=== PATIENT | male | born 1955 | race Caucasian/White ===

== ENCOUNTER 2017-01-15 17:44 | Inpatient (IN) | payer MEDICARE, OTHER ==
[~2017-01-15] VITALS: Ht 182.9 cm; Wt 123.2 kg
[~2017-01-15 17:44] MED LIST: AUGMENTIN 875-1 EACH PO; BACTRIM DS TAB1 EACH PO; BD ULTRA-FINE1 EAC1 MISC; BLOOD GLUCOSE1 EAC1 MISC; BLOOD GLUCOSE1 EAC8 MISC; CIPROFLOXACIN500 MG PO; HYDROCHLOROTHIA25 MG PO; IBUPROFEN200 MG PO; IMODIUM A-D2 M2 PO; INSULIN SYRING1 EA10 MISC; KEFLEX500 MG PO; LANTUS100 UNITS/ SUB-Q; LISINOPRIL20 MG PO; LISINOPRIL40 MG PO; METFORMIN HCL1000 MG PO; MOTRIN IB200 MG PO; NICORETTE2 MG MM; NOVOLOG100 UNIT/1 SUB-Q; NOVOLOG100 UNITS/ IV; NOVOLOG100 UNITS/ SUB-Q; PERCOCET 10-321 EACH PO; PERCOCET 5-3251 EACH PO; SURESTEP PRO1 EA VI; TERBINAFINE15 GM TOP; TYLENOL325 MG PO
[2017-01-15] MEDS ORDERED: NOVOLOG100 UNIT/2 SUB-Q (18:07)
[2017-01-15] MEDS ORDERED: LANTUS100 UNITS/ SUB-Q (18:08)
--- NOTE | 2017-01-15 21:30 | NUR ---
PT ADMITTED TO ICU ROOM 127 FOR SEPSIS FROM LEFT FOOT WOUND. PT AWAKE AND ALERT BUT SLEEPY, TRANSFERRED OVER TO BED FROM STRETCHER BY SLIDING WITH 3PERSON ASSIST. PT DENIES PAIN AT THIS TIME "THEY JUST GAVE ME SOMETHING". ASSESSMENT DONE, ALERT AND ORIENTED, PICTURES TAKEN OF LEFT FOOT WOUND, REDNESS EXTENDING UP THIGH WELL SOME REDNESS ON ABDOMEN. IVF STARTED, VANCOMYCIN STARTED. PT A BIT GRUMPY AND NOT WANTING TO ANSWER QUESTIONS, JUST LIES WITH FACE COVERED WITH BLANKET. DENIES NEEDS AT THIS TIME, WILL CALL WITH FURTHER NEEDS.
--- NOTE | 2017-01-15 23:00 | NUR ---
PT CALLS TO REQUEST BLANKET HE IS HAVING CHILLS, ALSO CONTINUES TO C/O HEARTBURN. 500MG PO TYLENOL GIVEN, MAALOX GIVEN ALSO.
--- NOTE | 2017-01-16 01:00 | NUR ---
ORAL TEMP 102.3, PT REPORTS RELIEF FROM HEARTBURN AFTER MAALOX GIVEN. DR CHILDERS CALLED AND INFORMED OF FEVER. ORDER GIVEN FOR EXTRA DOSE OF TYLENOL AT THIS TIME WELL A SET OF BLOOD CULTURES. PT INFORMED, AGREES, WAITING FOR LAB.
--- NOTE | 2017-01-16 01:34 | NUR ---
LAB IN TO DRAW
--- NOTE | 2017-01-16 04:42 | NUR ---
PT NAUSEATED/GROANING. DR CHILDERS CALLED, 4MG IV ZOFRAN GIVEN.
--- NOTE | 2017-01-16 05:37 | NUR ---
CALLED DR CHILDERS TO UPDATE REGARDING NAUSEA, FEVER AND LOW URINE OUTPUT. ORDER GIVEN FOR NAUSEA MED AND 1L LR BOLUS.
--- NOTE | 2017-01-16 08:00 | NUR ---
WOKE PATIENT FOR ASSESSMENT. IS DROWSY. STATES HE FEELES ALITTLE BETTER. LESS PAINFUL. REPOSITIONED. LEFT LEG REMAINS WARM AND PINK. PINK AREA ON LEFT LEG HAS STAYED WITHIN ORIGINAL MAKED AREA. OPEN SORE ON LEFT FOOT IS BLACK AROUND EDGE, SMALL AMOUNT OF DRAINAGE NOTED ON PILLOW CASE. OSTOMY IS INTACT. OSTOMY BAG WELL OSTOMY CLEANED. LARGE AMOUNT OF STOOL NOTED. PATIENT C/O SLIGHT NAUSEA, IA REQUESTING JELLO. IS TAKING WATER WITHOUT PROBLEMS. IS UNDERSTANDING REGARDING PLAN OF CARE FOR DAY.
--- NOTE | 2017-01-16 08:30 | NUR ---
DR. CHILDERS HERE TO SEE PATIENT, ORDERS RECIEVED. PATIENT IS DROWSY. IS TAKING BITES OF JELLO.
--- NOTE | 2017-01-16 10:00 | NUR ---
RESTFUL. URINE SENT TO LAB PER ORDERS. GOOD U/O, IVF AT 200 ML/HR, VANCO 270 ML/HR, CEFEPIME AT 27 ML/HR.
--- NOTE | 2017-01-16 12:00 | NUR ---
ASSESSMENT UNCHANGED. VERY TIRED.
--- NOTE | 2017-01-16 14:15 | NUR ---
MALOX 30 ML GIVEN FOR HEART BURN.
--- NOTE | 2017-01-16 15:00 | NUR ---
SPONGE BATH GIVEN. MOVES WELL IN BED. IS COOPERTIVE.
--- NOTE | 2017-01-16 15:44 | NUR ---
DR. AHUMADA HERE TO ASSESS WOUND ON LEFT FOOT. WOUND CLEANSED WITH SOAP/WATER, THEN XEROFORM APPLIED FOLLOWED BY KERLEX WRAP.
--- NOTE | 2017-01-16 16:38 | NUR ---
C/O CHILLING. TEMP-98.4. WILL CONTINUE TO MONITOR.
--- NOTE | 2017-01-16 17:29 | NUR ---
REFUSING DINNER. STATES HE IS FEEING WORSE.
--- NOTE | 2017-01-17 02:32 | NUR ---
PT C/O OF HEARTBURN X3 DAYS. ADMINISTERED ZOFRAN AND MAALOX. PT TEMP 99.6 ADMINISTERED 500MG TYLENOL PO. NO OTHER NEEDS.
--- NOTE | 2017-01-17 05:17 | NUR ---
ASSISTED TO REPOSITION. REQUESTING SOMETHING TO EAT THAT IS EASY ON THE STOMACH. GIVEN PUDDING.
--- NOTE | 2017-01-17 08:30 | NUR ---
ASSESSMENT DONE. LEFT LEG IS MORE SWOLLEN THAN YESTERDAY. REMAINS WARM AND PINK. OSTOMY BAG INTACT. WILL CHANGE THIS LATER THIS MORNING. TAKING OATMEAL AND YOGART.
--- NOTE | 2017-01-17 09:00 | NUR ---
DR. CHILDERS HERE TO SEE PATIENT, TRANSFER ORDERS RECIEVED. MONITOR DC'D.
--- NOTE | 2017-01-17 09:30 | NUR ---
OSTOMY BAG CHANGED BY Naldo CARLOS RN. PATIENT TOLERATED WELL. IS SOMEWHAT RESTLESS.
--- NOTE | 2017-01-17 09:45 | NUR ---
AM CARES GIVEN. TOLERATED WELL. C/O GENERALIZED PAIN, HEARTBURN. STATES FEELS WORSE. WISHES TO REMAIN IN BED. WILL TRANSFER TO CHAIR WHEN PHYS THERAPY HERE TO WORK WIHT PATIENT.
--- NOTE | 2017-01-17 10:00 | NUR ---
REGLAN 10 MG IV GIVEN FOR HEARTBURN AND SLIGHT NAUSEA.
--- NOTE | 2017-01-17 13:19 | NUR ---
UP TO CHAIR VIA OVERHEAD LIFT. PHYS THERAPY HERE TO WORK WITH PATIENT. C/O NAUSEA, ZOFRAN 4 MG IV REQUESTED AND GIVEN.
--- NOTE | 2017-01-17 13:50 | NUR ---
BACK TO BED VIA OVERHEAD LIFT.
--- NOTE | 2017-01-17 14:05 | NUR ---
REPORT TO MEDICAL FLOOR.
--- NOTE | 2017-01-17 14:20 | NUR ---
TO MEDICAL FLOOR VIA BED.
--- NOTE | 2017-01-17 14:27 | NUR ---
PT RECEIVED FROM CCU. PT COMPLAINT OF GENERALIZED PAIN, DENIES NEED FOR PAIN MEDICATION. PT LUNG SOUNDS CLEAR. WILLIS CTAH IN PLACE. LLE REDDENED, WARM TO THE TOUCH. FAMILY AT BEDSIDE.
--- NOTE | 2017-01-17 17:20 | NUR ---
PT REQUESTING PAIN MEDICATION, GIVEN 500 MG TYLENOL. DINNER AT BEDSIDE, BLOOD GLUCOSE 99, SS INSULIN HELD. PT DENIES OTHER NEEDS AT THIS TIME.
--- NOTE | 2017-01-17 17:52 | NUR ---
PT TRANSFERED FROM CCU. PARAPLGEIC. DIABETIC FOOT ULCER TO LEFT FOOT. RECEIVING VANCO, CEFEPIME, FLAGYL, TROUGH 24.7. PT ON ROOM AIR, LUNG SOUNDS CLEAR. ADA DIET, SS INSULIN AND LEVEMIR, HELD AT DINNER. PT WITH CHRONIC WILLIS IN PLACE. COLOSTOMY, FORMED STOOL. PAIN CONTROLLED WITH TYLENOL.
--- NOTE | 2017-01-17 19:00 | NUR ---
BEDSIDE REPORT RECEIVED FROM OFFGOING NURSE. PT LYING IN BED. DENIES NEEDS AT THIS TIME. CALL LIGHT WITHIN REACH.
--- NOTE | 2017-01-17 20:45 | NUR ---
PT ASSESSMENT COMPLETED. PT DENIES PAIN OR NAUSEA. SMALL 1CM X 1CM SCAB NOTED TO ABDOMEN NEAR OSTOMY APPLIANCE. OSTOMY DRAINING APPROPRIATELY. RLE REDDENED, WITHIN OUTLINE. DRESSING TO R FOOT D/I WITH MODERATE AMOUNT OF SHADOWING PRESENT. WILLIS CATH DRAINING YELLOW URINE WITH SEDIMENT PRESENT. IV SITES FLUSHED, ABX STARTED. PT DENIES NEEDS AT THIS TIME. CALL LIGHT WITHIN REACH.
--- NOTE | 2017-01-17 22:46 | NUR ---
PT RESTING IN BED, RESPIRATIONS EVEN AND UNLABORED. PT HAS BLANKETS PULLED UP OVER HIS HEAD. CALL LIGHT WITHIN REACH.
--- NOTE | 2017-01-18 00:50 | NUR ---
PT LYING IN BED AWAKE. STATES THAT IV PUMP BEEPING WOKE HIM. DENIES NEEDS AT THIS TIME. CALL LIGHT WITHIN REACH.
--- NOTE | 2017-01-18 02:39 | NUR ---
PT CALLS, ASKS FOR LEGS TO BE RE-ADJUSTED. PILLOW PLACED BETWEEN BEDRAIL AND PT'S LEG. PT ASSESSMENT COMPLETE. UNCHANGED FROM PREVIOUS ASSESSMENT. PT DENIES PAIN OR NAUSEA. REDDNESS TO LLE WITHIN OUTLINE. DRESSING TO LLE D/I. PT DENIES OTHER NEEDS. CALL LIGHT WITHIN REACH.
--- NOTE | 2017-01-18 04:33 | NUR ---
PT RESTING WELL THIS SHIFT. NO C/O PAIN. REDNESS TO LLE OUTLINED. DRESSING TO LLE D/I WITH SEROSANGUINEOUS SHADOWING. ACCUCHECKS, SSI, LEVEMIR. CHRONIC WILLIS AND OSTOMY. IV X 2. KIESHA TRANSFER, PARAPLEGIC PT.
--- NOTE | 2017-01-18 05:59 | NUR ---
pt sitting up in bed watching a movie on his phone. pt denies pain or nausea. requests coffee and sandwhich box. denies other needs. call light within reach.
--- NOTE | 2017-01-18 08:03 | NUR ---
PT ALERT AND ORINETED NO DISTRESS NOTED AT THIS TIME. PT WATCHING TV, JUST FINISHED BREAKFAST.
[2017-01-18] MEDS ORDERED: LISINOPRIL20 MG PO (10:44)
[2017-01-18] MEDS ORDERED: ONDANSETRON HCL4 MG PO (10:46)
--- NOTE | 2017-01-18 11:05 | NUR ---
WARREN MOROCHO RN IS IN ROOM WITH PT AT THIS TIME FOR PICC LINE PLACEMENT CONSULT
--- NOTE | 2017-01-18 12:09 | NUR ---
PICC INSERTION NOTE, I WAS ASKED BY DR CHILDERS TO EVALUATE HERMINIO FOR POSSIBLE PICC INSERTION. AFTER REVIEWING THE CHART AND INTERVIEWING THE PT, NO ABSOLUTE CONTRAINDICATIONS WERE FOUND. RISKS AND COMPLICATIONS OF PICC LINES WERE DISCUSSED WITH THE PT AND INFORMED CONSENT WAS SIGNED PRIOR TO THE START OF THE PROCEDURE. JANE HAS HAD A PICC LINE BEFORE AND TOLERATED IT WELL. THE RIGHT ARM IS INFUSING WITH HIS ONLY REMAINING IV SITE SO THE LEFT ARM WAS EVAULATED FIRST AND HE HAS A LARGE BASILIC VEIN MEASURING MORE THAN 8FR PER SITE [facility]. THIS VEIN WAS ACCESSED ON THE FIRST ATTEMPT AND THERE WERE NO ISSUES ADVANCING THE GUIDE WIRE, DILATOR, OR PICC. A SINGLE CXR WAS TAKEN WHICH DR VINCENT CAMPBELL MD REVIEWED AND LET US KNOW IT WAS IN A GOOD POSITION. EDUCATION WAS GIVEN AND INFORMATION LEFT WITH THE PATIENT REGARDING THE CARE OF PICC LINES. HE UNDERSTANDS THAT HE SHOULD SEEK MEDICAL ATTENTION FOR ANY CONCERNS REGARDING HIS PICC.
--- NOTE | 2017-01-18 14:45 | NUR ---
PT REPORTS BACK PAIN, TYLENOL ADMINSTERED AT THIS TIME
--- NOTE | 2017-01-18 15:51 | NUR ---
Draw for vancomycin trough level 01/19/17 at 0830. Pharmacy will assess results and make adjustments, if indicated
--- NOTE | 2017-01-18 17:06 | NUR ---
PT HAS CHRONIC WILLIS GOOD URINE OUTPUT, COLOSTOMY PRODUCING GOOD OUTPUT APPLIANCE INTACT. PICC LINE PLACED TODAY FOR ABX THERAPY. DRESSING TO LEFT FOOT INTAKE SMALL AMOUNT OF DRAINAGE NOTEABLE. PT PARALIZED AT BASELINE KIESHA LIFT. UP TO RECLINER THIS AFTERNOON. ASSIST TO RE-POSITION FREQUENTLY. HE HAS REPORTED MODERATE BACK PAIN, TYLENOL EFFECTIVE.
--- NOTE | 2017-01-18 19:05 | NUR ---
BEDSIDE REPORT RECEIVED FROM OFFGOING RN. PT SITTING UP IN CHAIR, WOULD LIKE TO MOVE BACK TO BED. PT HOYERED BACK TO BED, LLE ELEVATED IN KIESHA SLING WITH 2 PILLOWS BETWEEN PTS LEG AND SLING. PT TOLERATED WELL. DENIES OTHER NEEDS AT THIS TIME. CALL LIGHT WITHIN REACH.
--- NOTE | 2017-01-18 20:20 | NUR ---
PT ASSESSMENT COMPLETED. PT RESTING IN BED WITH EYES CLOSED. APPEARS TO BE SLEEPING. PT WAKES EASILY. DENIES PAIN OR NAUSEA. WILLIS CATH AND OSTOMY DRAINING APPROPRIATELY. REDNESS AND WARMTH CONTINUE TO LLE; REDNESS WITHIN OUTLINED MARKING. LLE DRESSING D/I WITH DRY SEROSANGUINEOUS DRAINAGE PRESENT. EDEMA TO BILATERAL LOWER LEGS. PT DENIES NEEDS AT THIS TIME. CALL LIGHT WITHIN REACH.
--- NOTE | 2017-01-19 00:09 | NUR ---
PT RESTING IN BED WITH BLANKETS PULLED UP OVER HIS HEAD. RESPIRATIONS EVEN AND UNLABORED. PT APPEARS TO BE SLEEPING. CALL LIGHT WITHIN REACH.
--- NOTE | 2017-01-19 01:58 | NUR ---
PT RESTING IN BED AWAKE. ASSISTED PT TO REPOSITION TO R SIDE. PILLOW PLACED BETWEEN PT'S LEGS. PT ASSESSMENT COMPLETED. UNCHANGED FROM PREVIOUS ASSESSMENT. DRESSING TO LLE D/I. REDNESS WITHIN PREVIOUSLY OUTLINED AREA. OSTOMY AND WILLIS CATH DRAINING APPROPRIATELY. PT DENIES FURTHER NEEDS. CALL LIGHT WITHIN REACH.
--- NOTE | 2017-01-19 05:17 | NUR ---
PT SITTING UP IN BED WATCHING TV ON HIS PHONE. STATES THAT HE IS FEELING MUCH BETTER TODAY, STATES THAT HE WISHES THE HOSPITAL OFFERED A STEAK BREAKFAST. PT PROVIDED WITH COFFEE, DENIES OTHER NEEDS. CALL LIGHT WITHIN REACH.
--- NOTE | 2017-01-19 05:18 | NUR ---
PT SLEPT MOST OF SHIFT. BACK PAIN CONTROLLED WITH REPOSITIONING. REDNESS TO L LEG OUTLINED. DRESSING TO L FOOT D/I WITH SEROSANGUINEOUS SHADOWING. DR. AHUMADA DUE TO CHANGE DRESSING TODAY. CHRONIC WILLIS WITH QS UO. COLOSTOMY WITH GOOD OUTPUT. KIESHA TRANSFER. PICC LINE TO L ARM, LR @ TKO. IV TO CHEO WARREN.
--- NOTE | 2017-01-19 07:05 | NUR ---
BEDSIDE REPORT RECEIVED FROM TINO GEORGES. PATIENT AWAKE IN BED DENIES PAIN. WILLIS IN PLACE, PICC LINE WNL AND FLUID INFUSING TKO. OSTOMY BAG IN PLACE. LEFT LEG ELEVATED WITH DRESSING ON. NO REQUEST MADE AT THIS TIME.
--- NOTE | 2017-01-19 09:20 | NUR ---
PATIENT FOUND IN BED WATCHING TV. DENIES PAIN. SHIFT ASSESSMENT DONE. PICC LINE WNL FLUSHED WELL WITH GOOD BLOOD RETURN. OSTOMY IN PLACE, WILLIS IN PLACE AND DRAINING YELLOW URINE. REDNESS ON THE RIGHT LEG STILL HOT TO TOUCH AND WOUND IN THE RIGHT SIDE OF THE R. FOOT COVER WITH GAUZE. NO DRAINAGE NOTED. PATIENT IS PARAPLEGIC. DR CHILDERS WAS IN ROOM TO SEE AND EVALUATE PATIENT AND DISCUSS PLAN OF CARE. PATIENT WAS ASSISTED TO SHOWER CHAIR WITH KIESHA. PATIENT WAS SHOWERED AND ASSISTED BACK TO CHAIR VIA KIESHA LIFT WITH 2 PERSONS ASSIST. DRESSING ON THE RIGHT SIDE OF THE R FOOT WAS CHANGED. PATIENT RESTING IN THE CHAIR QUIETLY. NO APPARENT DISTRESS NOTED.
--- NOTE | 2017-01-19 10:25 | NUR ---
PT HAS SHOWERED AND IS NOW SITTING UP IN CHAIR, WORKING WITH OCCUPATIONAL THERAPY. PT ASKED FOR COFFEE
--- NOTE | 2017-01-19 12:15 | NUR ---
PATIENT SITTING UP TO IN BED. DENIES PAIN AT THIS TIME. CBG CHECKED AND INSULIN [place] ADMINISTERED. NO OTHER COMPLAINTS.
--- NOTE | 2017-01-19 14:19 | NUR ---
PT WAS LYING IN BED, AFTER VITALS PT TRANSFERED TO PERSONAL WHEELCHAIR VIA SLIDE BOARD. PT ASLO SELF BURPPED COLOSTOMY BAG. PT ASKED FOR MORE ICE WATER
--- NOTE | 2017-01-19 14:37 | NUR ---
PT SITTING IN BED, ALERT AND ORIENTED. HE MENTIONED THAT HE NEEDS TO FIND SOME PLACE TO LIVE. HIS DAUGHTER MOVED OUT AND [place] WOULD LIKE TO FIND A SMALL PLACE FLAT. SEEMS TO HAVE GOOD ATTITUDE, BELIEVES GOD HAS A PLAN FOR HIM. IS ON SS DISABILITY. REQUESTED PRAYER, WILL FOLLOW NEEDED
--- NOTE | 2017-01-19 15:30 | NUR ---
PATIENT IS IN PHYSICAL THERAPY ROOM WITH VALENTIN. TOLERATED WELL. NO COMPLAINTS AT THIS TIME.
--- NOTE | 2017-01-19 17:58 | NUR ---
PATIENT HAD DONE WELL THIS SHIFT. HAD PHYSICAL THERAPY TODAY AND TOLERATED WELL. NO COMPLAINT OF PAIN THIS SHIFT. WILLIS IN PLACE. COLOSTOMY IN PLACE AND FUNCTION WELL. DRESSING ON THE RIGHT FOOD WAS CHANGED TODAY. REDNESS AND SWELLING ON THE RIGHT LEG HAD DECREASED SOME. PICC LINE WNL, FLUSHED WELL WITH GOOD BLOOD RETURN.
--- NOTE | 2017-01-19 18:18 | NUR ---
ASSISTED PT TO BED VIA SLIDE BOARD. PT DID NOT NEED ANYTHING ELSE
--- NOTE | 2017-01-19 19:00 | NUR ---
BEDSIDE REPORT RECEIVED FROM OFFGOING RN. PT LYING IN BED WITH BLANKETS PULLED UP OVER FACE AND HEAD. APPEARS TO BE SLEEPING. CALL LIGHT WITHIN REACH.
--- NOTE | 2017-01-19 20:59 | NUR ---
PT RESTING IN BED WITH EYES CLOSED. WAKES EASILY. STATES THAT PAIN IS WELL CONTROLLED. PT ASSESSMENT COMPLETE. REDDENED AREA NOTED TO L AC WITH SMALL RAISED AREA WITH A PURULENT HEAD NOTED, BELOW PICC LINE DRESSING. AREA IS WARM TO THE TOUCH. LEFT LEG AND FOOT REMAINS RED AND HOT TO THE TOUCH, REDNESS WITHIN OUTLINE. GAUZE DRESSING TO LEFT FOOT C/D/I. PT DENIES NEEDS AT THIS TIME. CALL LIGHT WITHIN REACH.
--- NOTE | 2017-01-19 22:35 | NUR ---
PT RESTING IN BED WITH EYES CLOSED. APPEARS TO BE SLEEPING. RESPIRATIONS EVEN AND UNLABORED. NO S/SX OF DISTRESS. CALL LIGHT WITHIN REACH.
--- NOTE | 2017-01-19 23:15 | NUR ---
PT RESTING IN BED WITH EYES CLOSED. RESPIRATIONS ARE EVEN AND UNLABORED. PT APPEARS TO BE SLEEPING. CALL LIGHT WITHIN REACH.
--- NOTE | 2017-01-20 03:14 | NUR ---
PT ASSESSMENT COMPLETE. PT RESTING WITH EYES CLOSED. WAKES EASILY. DRESSING TO L FOOT REMAINS C/D/I. GAUZE AND COBAN TO LLE WHERE PT SCRAPED FOOT DURING P.T. REDNESS AND WARMTH TO LLE UNCHANGED. LUE REDNESS AND RAISED BUMP UNCHANGED FROM PREVIOUS ASSESSMENT. PT REPOSITIONED TO R SIDE. PILLOW PLACED BETWEEN PT'S LEGS. PT TOLERATED WELL. DENIES NEEDS AT THIS TIME. CALL LIGHT WITHIN REACH.
--- NOTE | 2017-01-20 05:10 | NUR ---
PT SLEPT MOST OF SHIFT, PAIN WELL CONTROLLED. DRESSING TO LEFT FOOT C/D/I. WARMTH AND REDNESS TO LLE, WITHIN OUTLINE. NEW REDNESS AND BUMP TO LAC BELOW PICC LINE DRESSING. CHRONIC WILLIS AND OSTOMY; BOTH DRAINING APPROPRIATELY. KIESHA TRANSFER. PICC LINE L ARM, HEP LOCKED.
--- NOTE | 2017-01-20 10:54 | NUR ---
PT UP IN CHAIR WITH LLE ELEVATED ON BED. DR. GARCIA WAS IN TO CHANGE WOUND DRESSING ON LLE. PT DENIES NEEDS AT THIS TIME. CALL ALONZO WITHIN REACH.
--- NOTE | 2017-01-20 11:04 | NUR ---
PATIENT AWAKE IN BED. CLEANED ROOM. EMPTYED GARBAGE. HOYERED HIM TO CHAIR. LINEN CHANGE. FRESH HOTCHOCOLATE. FRESH ICE WATER. ELAVATED HIS LEFT LEG. TOOK VITALS. EMPTYED HIS WILLIS. PATIENT STATED HE WAS DOING OK CALLN LIGHT IN REACH.
== END 2017-01-20 11:55 | disposition swing bed (61) | DRG 698 ==
LOC: ED 17:44 → CCU 21:10 → MS 01-17 14:20
PROVIDERS: ADMIT Internal Medicine
PROC: 02HV33Z Insertion of Infusion Device into Superior Vena Cava, Percutaneous Approach (ICD-10-PCS; principal; 2017-01-18 11:00)
DX: T83.511A Infection and inflammatory reaction due to indwelling urethral catheter, initial encounter (principal); A41.9 Sepsis, unspecified organism; R65.20 Severe sepsis without septic shock; L03.116 Cellulitis of left lower limb; G82.21 Paraplegia, complete; E87.1 Hypo-osmolality and hyponatremia; Y84.6 Urinary catheterization as the cause of abnormal reaction of the patient, or of later complication, without mention of misadventure at the time of the procedure; E11.628 Type 2 diabetes mellitus with other skin complications; E11.65 Type 2 diabetes mellitus with hyperglycemia; E11.621 Type 2 diabetes mellitus with foot ulcer; L97.529 Non-pressure chronic ulcer of other part of left foot with unspecified severity; I10 Essential (primary) hypertension; B95.62 Methicillin resistant Staphylococcus aureus infection as the cause of diseases classified elsewhere; N31.9 Neuromuscular dysfunction of bladder, unspecified; B96.20 Unspecified Escherichia coli [E. coli] as the cause of diseases classified elsewhere; E83.42 Hypomagnesemia; Z79.4 Long term (current) use of insulin
CPT/HCPCS: 36415; 36556; 71010; 80053; 80069; 80202; 81001; 82570; 83036; 83605; 83735; 83930; 83935; 84133; 84300; 84550; 85025; 87040; 87077; 87088; 87147; 87186; 94667; 94668; 97110; 97162; 97165; 97530; 97535; C1751; J0692; J0696; J1170; J1650; J2405; J2765; J3370; J3475; J7030; J7060; J7120

== ENCOUNTER 2017-01-20 11:55 | Inpatient (IN) | payer MEDICARE, OTHER ==
[~2017-01-20] VITALS: Ht 182.9 cm; Wt 123.0 kg
[~2017-01-20 11:55] MED LIST changes: +NOVOLOG100 UNIT/2 SUB-Q; +ONDANSETRON HCL4 MG PO
--- NOTE | 2017-01-20 13:56 | NUR ---
PT SHARED THAT HE IS NOW SWING BED STATUS. THIS SEEMS TO FIT HIM WELL. WILL CONTINUE TO FOLLOW. EXTENDED A BLESSING
--- NOTE | 2017-01-20 15:08 | NUR ---
PT SLEEPING ON R SIDE. INDEPENDENTLY REPOSITIONS. CALL ALONZO WITHIN REACH.
--- NOTE | 2017-01-20 18:29 | NUR ---
PT WAS IN CHAIR FOR MOST OF DAY. TOOK A NAP THIS AFTERNOON IN BED AND IS NOW COMFORTABLE IN WHEELCHAIR. DR. GARCIA WAS IN THIS MORNING AND CHANGED DRESSING ON LLE. NEW DRESSING CHANGE DIRECTIONS IN PROGRESS REPORT NOTED BY DR. GARCIA. PICC DRESSING WNL. WILLIS IN PLACE. COLOSTOMY IN PLACE.
--- NOTE | 2017-01-20 20:40 | NUR ---
PT LAYING IN BED, APPEARED TO BE SLEEPING WHEN ENTERING ROOM. PT WOKE TO VOICE EASILY. REPORTED HE WAS "FEELING TIRED." PT ALERT AND ORIENTED X4. DRESSING TO LEFT FOOT CLEAN DRY AND INTACT. PT DENIES PAIN. PICC DRAWS BLOOD AND FLUSHES WELL. PT HAS NO NEEDS AT THIS TIME. BROUGHT FRESH ICE WATER. CALL LIGHT IN REACH.
--- NOTE | 2017-01-21 05:17 | NUR ---
PT SLEPT ENTIRE SHIFT, UNEVENTFUL NIGHT. WILLIS PUTTING OUT LARGE AMOUNTS OF DILUTE URINE. COLOSTOMY IN PLACE. BS CHECKS AND SS INSULIN. DRESSING CHANGED YESTERDAY PER DR AHUMADA. PT USES CALL LIGHT APPROPRIATLY. ALERT AND ORIENTED X4.
--- NOTE | 2017-01-21 07:39 | NUR ---
BEDSIDE REPORT RECIEVED FROM JER. ASSUMING PATIENT CARE AT THIS TIME. PATIENT APPEARS TO BE SLEEPING AT THIS TIME. RR EVEN/UNLABORED.
--- NOTE | 2017-01-21 10:35 | NUR ---
PATIENT IN BED RESTING. DENIES PAIN. SHIFT ASSESSMENT DONE. WILLIS IN PLACE AND DRAINING WELL. WOUND ON LEFT FOOT COVER WITH GAUZE AND COBAN, WNL, NO DRAINAGE. EDEMA NOTED ON LOWER EXTREMITIES. SKIN ON THE L/E SCALY. PICC LINE WNL, WITH BLOOD RETURN. VANCO IS INFUSING AT THIS TIME. NO APPARENT DISTRESS NOTED.
--- NOTE | 2017-01-21 11:51 | NUR ---
PATIENT AWAKE IN BED. CLEANED ROOM. EMPTYED GARDAGE. FRESH ICE WATER. HOT CHOCOLATE. PATIENT TRYED TO GET IN HIS WHEEL CHAIR TO TAKE A SHOWER BUT WAS NOT COMFERTABLE SO HE I ASSISTED HIM TO GET BACK IN BED. PATIENT SAID HE WOULD TAKE A SHOWER AFTER HIS SON GOT HERE TO FIX HIS WHEEL CHAIR. TOOK VITALS. UPDATED [place]. PATIENT STATED HE DID NOT NEED ANYTHING ELSE AT THIS TIME. CALL LIGHT IN REACH.
--- NOTE | 2017-01-21 16:06 | NUR ---
PATIENT AWAKE IN BED. FRESH WATER. HOYERED TO THE SHOWER CHAIR AND HE TOOK A SHOWER WITH MY ASSISTENCE. PATIENT HAS CALL LIGHT IN REACH.
--- NOTE | 2017-01-21 16:17 | NUR ---
PATIENT UP TO WHEELCHAIR, DENIES PAIN. WILLIS IN PLACE, COLOSTOMY WNL. NO APPATENT DISTRESS.
--- NOTE | 2017-01-21 18:03 | NUR ---
PATIENT HAD DONE WELL TODAY. NO COMPLAINTS OF PAIN FOR THIS SHIFT. PICC LINE IN PLACE AND S/L. DRESSING ON THE LEFT LATERAL FOOT WNL. NEED TO BE CHANGED Q 3 DAYS. PATIENT HAD SHOWERED TODAY. COLOSTOMY WNL. WILLIS IN PLACE AND DRAINING WELL.
--- NOTE | 2017-01-21 19:15 | NUR ---
RECEIVED REPORT FROM DAY SHIFT RN. PATIENT IS RESTING IN BED WATCHING TV ON HIS PHONE. PATIENT DENIES ANY NEEDS AT THIS TIME. PATIENT DENIES ANY PAIN. CALL LIGHT IN REACH.
--- NOTE | 2017-01-21 21:24 | NUR ---
PATIENT ASSESMENT COMPLETED. PATIENT DENIES ANY PAIN AT THIS TIME. PATIENTS EVENING MEDICATIONS GIVEN AT THIS TIME. PATIENT HAS A LEFT PICC LINE THAT HAS GOOD BLOOD RETURN. PATIENTS IV ABX STARTED PER ORDER. PATIENT HAS WILLIS IN PLACE AND THIS IS CHRONIC. PATIENT ALSO HAS OSTOMY BAG. PATIENT GIVEN SUPPLIES PER HIS REQUEST TO CHANGE OSTOMY BAG. PATIENT DENIES ANY FURTHER NEEDS AT THIS TIME. CALL LIGHT IN REACH.
--- NOTE | 2017-01-21 23:10 | NUR ---
PATIENT IS RESTING IN BED WATCHING [employer] ON HIS TABLET. PATIENT DENIES ANY NEEDS AT THIS TIME. CALL LIGHT IN REACH.
--- NOTE | 2017-01-22 01:23 | NUR ---
PATIENTS IV ABX COMPLETED INFUSING. PATIENTS LEFT ARM PICC IS NOW HEP LOCKED. PATIENT DENIES ANY NEEDS AT THIS TIME. CALL LIGHT IN REACH.
--- NOTE | 2017-01-22 02:22 | NUR ---
PATIENT IS RSETING IN BED ON HIS RIGHT SIDE. PATIENTS BREATHING IS EVEN AND UNLABORED, RR 18. CALL LIGHT IN REACH.
--- NOTE | 2017-01-22 02:34 | NUR ---
PATIENT CONTINUES TO REST IN BED WITH EYES CLOSED, RR 16.
--- NOTE | 2017-01-22 05:04 | NUR ---
PATIENT RESTED WELL DURING THE LATER PART OF THE SHIFT. PATIENT IS ON AN ADA DIET W/1800 CALORIE LIMIT AND IS TOLERATING IT WELL WITH NO COMPLAINTS OF NAUSEA. PATIENT HAS A PICC IN HIS UPPER LEFT ARM THAT FLUSHES WELL, HAS GOOD BLOOD RETURN, AND IS HEPLOCKED WHEN NOT IN USE. PATIENT HAS A CHRONIC WILLIS, OUPUT IS QS. PATIENT ALSO HAS AN OSTOMY. PATIENT IS A SBA TRANSFER TO HIS WHEELCAHIR WITH A SLIDER BOARD. PATIENT TOLERATES TRANSFER WELL. PATIENTS DRESSING IS DRY AND INTACT WITH NO DRAINAGE NOTED. PATIENT IS AAOX3 AND USES CALL LIGHT APPROPRIATELY.
--- NOTE | 2017-01-22 06:37 | NUR ---
PATIENT CONTINUES TO REST IN BED. PATIENT DENIES ANY PAIN OR NAUSEA AT THIS TIME. CALL LIGHT IN REACH.
--- NOTE | 2017-01-22 07:29 | NUR ---
REPORT RECEIVED FROM JOSEPH. ASSUMING PATIENT CARE AT THIS TIME. PATIENT RESTING IN BED. PATIENT APPEARS TO BE SLEEPING, RR EVEN/UNLABORED.
--- NOTE | 2017-01-22 12:35 | NUR ---
PATIENT SITTING IN BED WATCHING TV. DENIES PAIN. PHYSICAL THERAPIST IN ROOM.
--- NOTE | 2017-01-22 15:01 | NUR ---
PT SITTING NEXT TO BED WITH LEG ON BED WATCHING TV AND MEDITATING. HE TALKED ABOUT HOW IMPORTANT IT IS FOR HIM TO DEAL WITH HIS CONDITION BY SITTING QUIET,LISTENING FOR GOD TO SPEAK. I TOLD HIM I UNDERSTAND, AND HE FEELS GOD HAS A PLAN FOR HIS LIFE, JUST DOESN'T KNOW WHAT IT IS YET. PRAYED FOR GUIDANCE. PT REQUESTED A BIBLE-I PROVIDED ONE. WILL CONTINUE TO FOLLOW
--- NOTE | 2017-01-22 18:25 | NUR ---
PATIENT HAD DONE WELL TODAY. DENIES PAIN FOR THIS SHIFT. WILLIS IN PLACE AND FUNCTION WELL, COLOSTOMY IN PLACE AND WNL. LAST CBG 177. DRESSING ON LEFT FOOT WNL. NO DRAINAGE.
--- NOTE | 2017-01-22 19:06 | NUR ---
RECEIVED REPORT FROM DAY SHIFT RN. PATIENT IS RESTING IN BED WITH EYES CLOSED. BREATHING IS EVEN AND UNLABORED. RR 17. CALL LIGHT IN REACH.
--- NOTE | 2017-01-22 19:21 | NUR ---
CARE TRANSFER AND REPORT GIVEN TO JOSEPH. PATIENT RESTING IN BED APPEARS TO BE SLEEPING AT THIS TIME. NO APPARENT DISTRESS NOTED.
--- NOTE | 2017-01-22 21:48 | NUR ---
PATIENT ASSESMENT COMPLETED. PATIENTS EVENING MEDICATIONS GIVEN PER ORDER. PATIENT IS ON AN ADA DIET AND IS TOLERATING IT WELL, NO COMPLAINTS OF NAUSEA. PATIENTS LEFT UPPER ARM PICC HAS GOOD BLOOD RETURN, ABX INFUSING AT THIS TIME. PATIENTS WILLIS CONTINUES TO PUT OUT TELLOW URINE, OUTPUT IS QS. PATIENT HAS AN OSTOMY AND DENIES THE NEED TO CHANGE IT AT THIS TIME, OR EMPTY IT. PATIENT DENIES ANY PAIN. PATIENT DENIES ANY FURTHER NEEDS. CALL LIGHT IN REACH.
--- NOTE | 2017-01-22 23:34 | NUR ---
PATIENT IS RESTING IN BED WITH EYES CLOSED, RR 18. PATIENTS IV ABX IS COMPLETED. PATIENTS PICC LINE IS NOW HEPLOCKED. PATIENTS CALL LIGHT IS WITHIN REACH.
--- NOTE | 2017-01-23 01:11 | NUR ---
PATIENT IS RESTING IN BED WITH HIS EYES CLOSED. PATIENT IS POSTIONED ON HIS RIGHT SIDE. PATIENTS BREATHING IS EVEN AND UNLABORED, RR 18. CALL LIGHT IN REACH.
--- NOTE | 2017-01-23 03:07 | NUR ---
PATIENT IS AWAKE AND WATCHING A MOVIE ON HIS TABLET. PATIENT DENIES ANY PAIN AT THIS TIME. PATIENT DENIES ANY NEEDS AT THIS TIME. CALL LIGHT IS WITHIN REACH.
--- NOTE | 2017-01-23 04:59 | NUR ---
PATIENT WAS ABLE TO REST ABOUT HALF OF THE SHIFT. PATIENT DENIED ANY PAIN. PATIENT IS ON AN ADA DIET W/1800 GADIEL LIMIT AND IS TOLERATING IT WELL. NO CAOMPLAINTS OF NAUSEA. PATIENT HAS A LEFT PICC LINE THAT IS HEP LOCKED WHEN NOT IN USE. PATIENT HAS A CHRONIC WILLIS AND URINE OUTPUT IS QS. PATIENT HAS AN OSTOMY THAT HE CARES FOR HIMSELF. PATIENT IS WHEELCHAIR BOUND. 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 PATIENT IS AAOX3 AND USES CALL LIGHT APPROPRIATELY.
--- NOTE | 2017-01-23 05:59 | NUR ---
PATIENTS DRESSING CHANGED PER ORDER. PATIENT TOLERATED ACTIVITY WELL. PATIENT DENIES ANY PAIN. PATIENT GIVEN COFFEE PER REQUEST. PATIENT DENIES ANY FURTHER NEEDS AT THIS TIME. CALL LIGHT IN REACH.
--- NOTE | 2017-01-23 07:53 | NUR ---
BEDSIDE REPORT RECIEVED FROM JOSEPH. ASSUMING PATIENT CARE A THIS TIME. PATIENT RESTING IN BED AWAKE. NO COMPLAINTS
--- NOTE | 2017-01-23 14:20 | NUR ---
PATIENT UP TO CHAIR, LEFT LEG ELEVATED. FAMILY IN ROOM VISITING.
--- NOTE | 2017-01-23 14:34 | NUR ---
Vancomycin trough level ordered for 01/24/17 @ 0505
--- NOTE | 2017-01-23 18:39 | NUR ---
PATIENT HAD A FAIR DAY. NO COMPLAINTS FOR THIS SHIFT. DRESSING ON THE LEFT FOOT WNL. PICC LINE IN PLACE AND WNL. COLOSTMY WNL. HAS BEEN UP TO CHAIR WITH LEFT FOOT ELEVATED.
--- NOTE | 2017-01-23 19:13 | NUR ---
RECEIVED REPORT FROM DAY SHIFT RN. PATIENT IS RESTING IN BED WITH EYES CLOSED. PATIENTS BREATHING IS EVEN AND UNLABORED. CALL LIGHT IN [facility].
--- NOTE | 2017-01-23 19:22 | NUR ---
DID OWN PARTIAL BATH. HELPED PATIENT GET FROM THE BED TO THE WHEELCHAIR.
--- NOTE | 2017-01-23 21:56 | NUR ---
PATIENT ASSESMENT COMPLETED. PATIENTS EVENING MEDICATIONS GIVEN PER ORDER. PATIENT DENIES ANY PAIN OR NAUSEA AT THIS TIME. PATIENTS LEFT PICC IS INFUSING ABX AT THIS TIME. PATIENT DENIES ANY NEEDS AT THIS TIME. CALL LIGHT IN REACH.
--- NOTE | 2017-01-23 23:59 | NUR ---
PATIENTS IV ABX COMPLETED. PATIENTS PICC IS NOW HEPLOCKED. PATIENT DENIES ANY PAIN. PATIENT DENIES ANY NEEDS AT THIS TIME. CALL LIGHT IN REACH.
--- NOTE | 2017-01-24 01:24 | NUR ---
PATIENT CONTINUES TO REST IN BED ON HIS RIGHT SIDE WITH EYES CLOSED. PATIENTS BREATHING IS EVEN AND UNLBAORED, RR17. CALL LIGHT IN REACH.
--- NOTE | 2017-01-24 03:12 | NUR ---
PATIENT IS RESTING IN BED WITH EYES CLOSED. RR 16.
--- NOTE | 2017-01-24 04:42 | NUR ---
PATIENT REQUESTED SET UP ASSISTANCE TO CHANGE HIS COLOSTOMY BAG. ONCE PATIENT HAD ALL HIS SUPPLIES HE WAS ABLE TO CHANGE THE BAG HIMSELF. PATIENT REQUESTED COFFEE WHICH WAS GIVIEN TO HIM. DENIES ANY FURTHER NEEDS AT THIS TIME. CALL LIGHT IN REACH.
--- NOTE | 2017-01-24 05:02 | NUR ---
PATIENT RESTED WELL THROUGHOUT THE SHIFT. PATIENT DENIED ANY PAIN. PATIENT IS ON AN ADA DIET AND IS TOLERATING IT WELL, NO COMPLAINTS OF NAUSEA. PATIENT HAS A RIGHT PICC THAT HAS GOOD BLOOD RETURN AND FLUSHES WELL. PATIENT HAS A CHRONIC WILLIS AND URINE OUTPUT IS QS. PATIENT HAS AN OSTOMY IN PLACE. PATIENT CHANGED OWN OSTOMY. PATIENT IS T8 PARAPALEGIG AND IS WHEELCHAIR BOUND. PATIENT USES SLIDER BOARD TO MOVE FROM BED TO CHAIR WITH MINIMAL ASSISTANCE. PATIENT IS AAOX3 AND USES CALL LIGHT APPROPRIATELY.
--- NOTE | 2017-01-24 06:48 | NUR ---
PATIENT USED SLIDER BOARD TO MOVE FROM THE HOSPITAL BED TO HIS WHEELCHAIR. PATIENT DID WELL WITH MOVEMENT AND DID NOT REQUIRE ANY HELP. PATIENT IS NOW IN WHEELCHAIR IN THE ROOM. PATIENTS COFFEE REFILLED. PATIENT DENIES ANY FURTHER NEEDS AT THIS TIME. CALL LIGHT IN REACH.
--- NOTE | 2017-01-24 07:47 | NUR ---
BEDSIDE REPORT RECEIVED FROM JOSEPH. PATIENT UP TO CHAIR. DENIES PAIN. DRESSING ON LEFT FOOT WNL NO DRAINAGE. PICC LINE DRESSING CLEAN.
--- NOTE | 2017-01-24 09:52 | NUR ---
patient is a swing bed, i did his vitals this morning, he used a slide baord to go back to bed from his wheelchair, he showered yesterday and doesnt feel like he needs one today.
--- NOTE | 2017-01-24 10:42 | NUR ---
Patient receiving vancomycin 2g IV q 12hrs. Vanco trough level drawn today = 22.0. decrease dose to 1500mg IV q12hrs per pharmacokinetic calculation. Begin at 1100 today. Vancomycin to end in 2 days, I believe, so this will be the last trough drawn.
--- NOTE | 2017-01-24 12:49 | NUR ---
PATIENT SITTING IN BED WITH LEFT FOOT ELEVATED. EATING LUNCH. NO COMPLAINTS AT THIS TIME.
--- NOTE | 2017-01-24 18:15 | NUR ---
PATIENT HAD A FAIR DAY. VANCO TROUGH RESULT TODAY WAS 22. COMPLAINTS OF BEING TIRED THIS PM. NO OTHER CHANGES. DRESSING ON LEFT FOOT WNL. PICC LINE HEP LOCKED AND DRESSING D/C/I. LEFT EDEMA DECREASSED A LITTLE. COLOSTOMY WNL. CHRONIC WILLIS. WILLIS BAG WAS CHANGED TODAY DUE TO LEAKAGE.
--- NOTE | 2017-01-24 21:32 | NUR ---
PT SITTING UP IN BED, WATCHING TV. ALERT AND ORIENTED X4, PLEASENT DEMEANOR, VERY TALKATIVE. PT REPORTS "FEELING BETTER TONIGHT." DRESSING TO FOOT IS CLEAN DRY AND INTACT. PT DENIES PAIN AT THIS TIME, STATES "I HAD A LITTLE HEADACHE EARLIER, BUT ITS GONE NOW." PT DENIES FURTHER NEEDS. PICC DRAWS BLOOD AND FLUSHES WELL. CALL LIGHT IN REACH. FRESH ICE WATER GIVEN.
--- NOTE | 2017-01-25 04:38 | NUR ---
pt had uneventful night. reported "feeling better" last night. pt alert and oriented, pleasent demeanor and was very talkative beginning of shift. slept well overnight. uses call light appropriatly. dressing to foot is clean dry and intact. picc draws blood and flushes well.
--- NOTE | 2017-01-25 09:31 | NUR ---
Patient watching tv in no distress. Denies needs at this time. Patient gives his own insulin injection to abdomen. Dressing to foot clean, dry and intact. Patient denies pain. Assessment complete.
--- NOTE | 2017-01-25 11:53 | NUR ---
Nurse showered patient and I helped with changing the linens and Xuan from shower chair back to bed.
--- NOTE | 2017-01-25 12:16 | NUR ---
PATIENT RELAXING IN BED, DENIES PAIN. PATIENT STATES "I REALLY FEEL SO MUCH BETTER"
--- NOTE | 2017-01-25 13:15 | NUR ---
assisted patient into his home wheelchair, patient out rolling around hallway independantly.
--- NOTE | 2017-01-25 14:15 | NUR ---
Patient sitting up in chair, resting with eyes closed in no distress.
--- NOTE | 2017-01-25 14:42 | NUR ---
PT BUSY TEXTING, THEN SAW PT SITTING IN NARAYAN IN CHAIR. SEEMED TO BE IN GOOD SPIRITS, JUST NEEDED TO LOOK AT SOME DIFFERENT AGUILERA. GOD BLESS
--- NOTE | 2017-01-25 15:00 | NUR ---
This RN assists patient back to bed. Patient tolerates well. Patient states, "i want to rest now, I think I will take a nap."
--- NOTE | 2017-01-25 18:06 | NUR ---
PATIENT HAD A GOOD DAY. PATIENT STATES HE IS FEELING BETTER TODAY. PATIENT WAS UP FOR A SHOWER AND IN HIS CHAIR FOR A ROLL AROUND THE HOSPITAL. DRESSING TO [facility]. PICC LINE PATENT WITH GOOD BLOOD RETURN. PATIENT HAS DENIED PAIN ALL DAY, EXCITED TO BE GOING HOME TOMORROW.
--- NOTE | 2017-01-25 22:41 | NUR ---
pt appeared to be sleeping when entering room. woke easily to voice. pt alert and oriented x4. pleasent. dressing to foot is clean dry and intact. no pain. pt has no further needs at this time. call light in reach.
--- NOTE | 2017-01-26 | NUR ---
pt appears to be sleeping. rr wnl and unlabored.
--- NOTE | 2017-01-26 06:15 | NUR ---
PT SLEPT MAJORITY OF SHIFT. UNEVENTFUL NIGHT. PICC WNL AND DRAWS BLOOD BACK WELL. DRESSING TO FOOT IS CLEAN DRY AND INTACT. PT ALERT AND ORIENTED X4, PLEASENT. IV ANTIBIOTICS. POSSIBLE DC HOME TODAY.
--- NOTE | 2017-01-26 07:51 | NUR ---
HOSPITALIST IN TO SEE PATIENT, REQUESTS TO SEE LEG ULCER. THIS RN REMOVES DRESSING. PATIENT HAS GOLF BALL SIZED ULCER TO OUTER ASPECT OF LEFT FOOT. NO S/S OF INFECTION. NO REDNESS NOTED. ESCHAR FORMING OVER WOUND. PATIENT DOES HAVE A RED AREA TO LEFT REAGAN THAT IS RED, WARM TO TOUCH BUT BLANCHES. PATIENT STATES HE FELL ASLEEP WITH HIS LEGS CROSSED. THIS IS NEW SINCE YESTERDAY, ELEVATED LLE. WILL CONTINUE TO MONITOR. ACCU CHECK DONE, PT GIVEN 2 UNITIS NOVOLOG. PATIENT EATING BREAKFAST.
[2017-01-26] MEDS ORDERED: AUGMENTIN 875-1 EACH PO (08:13)
[2017-01-26] MEDS ORDERED: CULTURELLE CAP1 EAC1 PO (08:14)
--- NOTE | 2017-01-26 08:44 | NUR ---
patient eats 100% of breakfast, refuses a shower today as he has had one yesterday. MD has dc orders written.
--- NOTE | 2017-01-26 09:20 | NUR ---
Patient eats 100% of breakfast tray. Napping in the chair at this time.
--- NOTE | 2017-01-26 09:23 | NUR ---
dressing change completed, patient tolerates well. Elelvated LLE on 2 pillows. Vanco infusing, patient to be discharged when infusion complete.
--- NOTE | 2017-01-26 10:33 | NUR ---
Patient to be discharged after vanco infusion. Patient given all discharge instructions. All questions answered.
--- NOTE | 2017-01-26 10:56 | NUR ---
PT TRANSFERED TO PERSONAL WHEEL CHAIR VIA SLIDE BOARD. PT IS BEING DISCHARGED TO HOME
== END 2017-01-26 11:05 | disposition home or self-care (01) | DRG 638 ==
LOC: MS 11:55
PROVIDERS: ADMIT Internal Medicine
DX: E11.621 Type 2 diabetes mellitus with foot ulcer (principal); T83.511A Infection and inflammatory reaction due to indwelling urethral catheter, initial encounter; G82.20 Paraplegia, unspecified; L97.529 Non-pressure chronic ulcer of other part of left foot with unspecified severity; Z79.4 Long term (current) use of insulin; B96.20 Unspecified Escherichia coli [E. coli] as the cause of diseases classified elsewhere; B95.1 Streptococcus, group B, as the cause of diseases classified elsewhere; E11.65 Type 2 diabetes mellitus with hyperglycemia; I10 Essential (primary) hypertension; S24.103S Unspecified injury at T7-T10 level of thoracic spinal cord, sequela; N31.9 Neuromuscular dysfunction of bladder, unspecified
CPT/HCPCS: 80202; 97110; 97162; 97530; J0696; J1650; J3370; J7060

== ENCOUNTER 2017-05-05 09:29 | Emergency (ER) | payer MEDICARE, OTHER ==
[~2017-05-05] VITALS: Ht 182.9 cm; Wt 122.9 kg
[~2017-05-05 09:29] MED LIST changes: +CULTURELLE CAP1 EAC1 PO
[2017-05-05] MEDS ORDERED: KEFLEX500 MG PO (13:59)
== END 2017-05-05 14:19 | disposition home or self-care (01) ==
LOC: ED 09:29
DX: L89.211 Pressure ulcer of right hip, stage 1 (principal); L03.115 Cellulitis of right lower limb; E11.42 Type 2 diabetes mellitus with diabetic polyneuropathy; I10 Essential (primary) hypertension; Z90.49 Acquired absence of other specified parts of digestive tract; Z88.1 Allergy status to other antibiotic agents; Z88.8 Allergy status to other drugs, medicaments and biological substances; Z79.899 Other long term (current) drug therapy; Z79.4 Long term (current) use of insulin
CPT/HCPCS: 36415; 80053; 85025; 87070; 87077; 87186; 99283

== ENCOUNTER 2020-08-03 19:33 | Emergency (ER) | payer MEDICARE, OTHER ==
[~2020-08-03] VITALS: Ht 182.9 cm; Wt 127.0 kg
[~2020-08-03 19:33] MED LIST changes: +CIPRO500 MG PO
--- OUTSIDE RECORDS SUMMARY | 2020-08-03 19:36 | XMS ---
PreManage Notification: HERMINIO JON Security Concrete Paver Events No recent Security Events currently on file CRITERIA MET - History of Sepsis Dx CARE PROVIDERS KODI SCHUSTER Internal Medicine Current PHONE: [phone] MAYRA HERNANDEZ Dentist: Network Engineer 06/26/2019-Current PHONE: [phone] MARCELINO YIN Internal Medicine 02/13/2019-Current PHONE: [phone] Jennifer Holden Bag Inspector/Utilization Review Coordinator 07/01/2020-Current PHONE: [phone] Rohan Camara [facility] Current PHONE: [phone] JAHAIRA BRODERICK Nurse Practitioner: Family Current PHONE: [phone] Jesus has no Care Guidelines for this patient. Юлия VISIT COUNT (12 MO.) 1 KEZIA Haines TOTAL 1 NOTE: Visits indicate total known visits. ED/UCC VISIT TRACKING (12 MO.) 08/03/2020 19:33 [facility] [place] TYPE: Emergency COMPLAINT: - POSSIBLE UTI, FEVER INPATIENT VISIT TRACKING (12 MO.) No inpatient visits to display in this time frame [id number]
[2020-08-03] MEDS ORDERED: ACTOS15 MG PO (21:28)
[2020-08-03] MEDS ORDERED: LIPITOR10 MG PO (21:28)
[2020-08-03] MEDS ORDERED: CEFTRIAXONE1 G2 IM (21:29)
[2020-08-03] MEDS ORDERED: CELEBREX200 MG PO (21:29)
[2020-08-03] MEDS ORDERED: TOPROL XL100 MG PO (21:30)
== END 2020-08-03 21:40 | disposition home or self-care (01) ==
LOC: ED 19:33
DX: N39.0 Urinary tract infection, site not specified (principal); E11.42 Type 2 diabetes mellitus with diabetic polyneuropathy; I10 Essential (primary) hypertension; Z88.8 Allergy status to other drugs, medicaments and biological substances; Z88.1 Allergy status to other antibiotic agents; Z79.899 Other long term (current) drug therapy; Z79.4 Long term (current) use of insulin
CPT/HCPCS: 71045; 80053; 83605; 85025; 85610; 85730; 99284-25

== ENCOUNTER 2020-09-25 10:52 | Emergency (ER) | payer MEDICARE, OTHER ==
[~2020-09-25] VITALS: Ht 182.9 cm; Wt 127.1 kg
[~2020-09-25 10:52] MED LIST changes: +ACTOS15 MG PO; +CEFTRIAXONE1 G2 IM; +CELEBREX200 MG PO; +LIPITOR10 MG PO; +TOPROL XL100 MG PO
--- OUTSIDE RECORDS SUMMARY | 2020-09-25 10:58 | XMS ---
PreManage Notification: HERMINIO JON Security Rod And Tube Straightener Events No recent Security Events currently on file CRITERIA MET - History of Sepsis Dx CARE PROVIDERS KODI SCHUSTER Internal Medicine Current PHONE: [phone] DAVID [facility] 08/05/2020-Current PHONE: [phone] MARCELINO YIN Internal Medicine 02/13/2019-Current PHONE: [phone] Jennifer Holden Excavating Machine Operator/Cop 07/01/2020-Current PHONE: [phone] Rohan Camara [facility] Current PHONE: [phone] JAHAIRA BRODERICK Nurse Practitioner: Current PHONE: [phone] Jesus has no Care Guidelines for this patient. Юлия VISIT COUNT (12 MO.) Haritha Haines TOTAL 2 NOTE: Visits indicate total known visits. ED/UCC VISIT TRACKING (12 MO.) 09/25/2020 10:52 [facility] [place] TYPE: Emergency COMPLAINT: - CATHETER ISSUE 08/03/2020 19:33 [facility] [place] TYPE: Emergency COMPLAINT: - POSSIBLE UTI, FEVER DIAGNOSES: - Fever, unspecified - shelter (current) use of insulin - Allergy status to other drugs, medicaments and biological substances - Urinary tract infection, site not specified - Allergy status to other antibiotic agents - Essential (primary) hypertension - Type 2 diabetes mellitus with diabetic polyneuropathy - Other half-way (current) drug therapy INPATIENT VISIT TRACKING (12 MO.) No inpatient visits to display in this time frame [id number]
[2020-09-25] MEDS ORDERED: CIPRO500 MG PO (14:58)
== END 2020-09-25 15:08 | disposition home or self-care (01) ==
LOC: ED 10:52
DX: N39.0 Urinary tract infection, site not specified (principal); Z46.6 Encounter for fitting and adjustment of urinary device; E11.42 Type 2 diabetes mellitus with diabetic polyneuropathy; I10 Essential (primary) hypertension; Z87.891 Personal history of nicotine dependence; Z88.1 Allergy status to other antibiotic agents; Z88.8 Allergy status to other drugs, medicaments and biological substances; Z79.899 Other long term (current) drug therapy; Z79.4 Long term (current) use of insulin
CPT/HCPCS: 51702; 51798; 80053; 81001; 85025; 99283-25; J7030

== ENCOUNTER 2020-10-21 19:33 | Emergency (ER) | payer MEDICARE, OTHER ==
[~2020-10-21] VITALS: Ht 182.9 cm; Wt 122.5 kg
--- OUTSIDE RECORDS SUMMARY | 2020-10-21 19:36 | XMS ---
PreManage Notification: HERMINIO JON Security Sunglass Clip Attacher Events No recent Security Events currently on file CRITERIA MET - History of Sepsis Dx - [facility] - 2 Visits in 30 Days CARE PROVIDERS KODI SCHUSTER Internal Medicine [facility]: [phone] [facility]Current PHONE: [phone] MARCELINO YIN Internal Medicine 02/13/2019-Current PHONE: [phone] Jennifer Holden Circular Knitter/Learning Support Specialist 07/01/2020-Current PHONE: [phone] Rohan Camara [facility] Current PHONE: [phone] JAHAIRA BRODERICK Nurse Practitioner: Current PHONE: [phone] Jesus has no Care Guidelines for this patient. Юлия VISIT COUNT (12 MO.) [address] [facility] [address] [facility] TOTAL 3 NOTE: Visits indicate total known visits. ED/UCC VISIT TRACKING (12 MO.) 10/21/2020 19:33 [facility] [place] TYPE: Emergency COMPLAINT: - FEVER,NAUSEA 09/25/2020 10:52 [facility] [place] TYPE: Emergency COMPLAINT: - CATHETER ISSUE DIAGNOSES: - Urinary tract infection, site not specified - Personal history of nicotine dependence - jail (current) use of insulin - Allergy status to other drugs, medicaments and biological substances - Other long-term (current) drug therapy - Allergy status to other antibiotic agents - Type 2 diabetes mellitus with diabetic polyneuropathy - Encounter for fitting and adjustment of urinary device - Essential (primary) hypertension 08/03/2020 19:33 [facility] [place] TYPE: Emergency COMPLAINT: - POSSIBLE UTI, FEVER DIAGNOSES: - Fever, unspecified - salvage determiner (current) use of insulin - Allergy status to other drugs, medicaments and biological substances - Urinary tract infection, site not specified - Allergy status to other antibiotic agents - Essential (primary) hypertension - Type 2 diabetes mellitus with diabetic polyneuropathy - Other manager long term care (current) drug therapy INPATIENT VISIT TRACKING (12 MO.) No inpatient visits to display in this time frame [id number]
[2020-10-21] MEDS ORDERED: CEPHALEXIN500 MG PO (23:54)
--- NOTE | 2020-10-22 09:46 | EKG ---
[facility] [address] [place], [place] [address] S[address] Sin[address] N[address] and T wave abnormality Abnormal ECG No previous ECGs available Confirmed by SCOTT CHILDERS MD ([id number]) on 10/22/2020 9:46:11 AM Electronically Signed By: SCOTT CHILDERS MD 10/22/20 0946 PATIENT NAME: HERMINIO JON Electrocardiogram DATE OF : 55 PHYSICIAN: SCOTT CHILDERS MD REPORT #: [id number] REPORT IS CONFIDENTIAL AND NOT TO BE RELEASED WITHOUT AUTHORIZATION
== END 2020-10-22 00:18 | disposition home or self-care (01) ==
LOC: ED 19:33
DX: N39.0 Urinary tract infection, site not specified (principal); E11.40 Type 2 diabetes mellitus with diabetic neuropathy, unspecified; I10 Essential (primary) hypertension; Z87.891 Personal history of nicotine dependence; Z88.1 Allergy status to other antibiotic agents; Z88.8 Allergy status to other drugs, medicaments and biological substances; Z79.899 Other long term (current) drug therapy; Z79.4 Long term (current) use of insulin
CPT/HCPCS: 51702; 71045; 71260; 74177; 80053; 81001; 83605; 85025; 87040; 87077; 87088; 87186; 93005; 93010; 99284-25; J0696; J7030; Q9967

== ENCOUNTER 2020-12-07 17:16 | Emergency (ER) | payer MEDICARE, OTHER ==
[~2020-12-07] VITALS: Ht 182.9 cm; Wt 122.5 kg
[~2020-12-07 17:16] MED LIST changes: +CEPHALEXIN500 MG PO
[2020-12-07] MEDS ORDERED: MACROBID 100 M100 MG PO (17:27)
== END 2020-12-07 20:40 | disposition home or self-care (01) ==
LOC: ED 17:16
DX: S72.342A Displaced spiral fracture of shaft of left femur, initial encounter for closed fracture (principal); G82.20 Paraplegia, unspecified; I10 Essential (primary) hypertension; E11.42 Type 2 diabetes mellitus with diabetic polyneuropathy; Z87.891 Personal history of nicotine dependence; Z88.1 Allergy status to other antibiotic agents; Z88.8 Allergy status to other drugs, medicaments and biological substances; Z79.899 Other long term (current) drug therapy; Z79.4 Long term (current) use of insulin; W19.XXXA Unspecified fall, initial encounter
CPT/HCPCS: 73552; 99284-25

== ENCOUNTER 2020-12-09 11:55 | Emergency (ER) | payer MEDICARE, OTHER ==
[~2020-12-09] VITALS: Ht 182.9 cm; Wt 122.5 kg
[~2020-12-09 11:55] MED LIST changes: +MACROBID 100 M100 MG PO
--- OUTSIDE RECORDS SUMMARY | 2020-12-09 12:02 | XMS ---
PreManage Notification: HERMINIO JON Security Sales Warehouse Driver Events No recent Security Events currently on file CRITERIA MET - [facility] - 2 Visits in 30 Days CARE PROVIDERS KODI SCHUSTER Internal Medicine Current PHONE: [phone] DAVID [facility] 08/05/2020-Current PHONE: [phone] MARCELINO YIN Internal Medicine 02/13/2019-Current PHONE: [phone] Prashanth Diana Property Analyst/Lvn 11/28/2020-Current PHONE: [phone] Rohan Camara DO [facility] Current PHONE: [phone] JAHAIRA BRODERICK Nurse Practitioner: Current PHONE: [phone] Jesus has no Care Guidelines for this patient. Юлия VISIT COUNT (12 MO.) 5 KEZIA Haines TOTAL 5 NOTE: Visits indicate total known visits. ED/UCC VISIT TRACKING (12 MO.) 12/09/2020 11:56 [facility] [place] TYPE: Emergency COMPLAINT: - CHILLS,HEADACHE 12/07/2020 17:16 [facility] [place] TYPE: Emergency COMPLAINT: - LEG INJURY 10/21/2020 19:33 [facility] [place] TYPE: Emergency COMPLAINT: - FEVER,NAUSEA DIAGNOSES: - Type 2 diabetes mellitus with diabetic neuropathy, unspecified - Allergy status to other antibiotic agents - residential (current) use of insulin - Urinary tract infection, site not specified - Personal history of nicotine dependence - Fever, unspecified - Essential (primary) hypertension - Allergy status to other drugs, medicaments and biological substances - Other nursing home (current) drug therapy 09/25/2020 10:52 [facility] [place] TYPE: Emergency COMPLAINT: - CATHETER ISSUE DIAGNOSES: - Urinary tract infection, site not specified - Personal history of nicotine dependence - termite control representative (current) use of insulin - Allergy status to other drugs, medicaments and biological substances - Other rodent exterminator (current) drug therapy - Allergy status to other antibiotic agents - Type 2 diabetes mellitus with diabetic polyneuropathy - Encounter for fitting and adjustment of urinary device - Essential (primary) hypertension 08/03/2020 19:33 [facility] [place] TYPE: Emergency COMPLAINT: - POSSIBLE UTI, FEVER DIAGNOSES: - Fever, unspecified - residential (current) use of insulin - Allergy status to other drugs, medicaments and biological substances - Urinary tract infection, site not specified - Allergy status to other antibiotic agents - Essential (primary) hypertension - Type 2 diabetes mellitus with diabetic polyneuropathy - Other nursing home (current) drug therapy INPATIENT VISIT TRACKING (12 MO.) No inpatient visits to display in this time frame [id number]
[2020-12-09] MEDS ORDERED: CEPHALEXIN500 M1 PO (18:19)
== END 2020-12-09 21:26 | disposition home or self-care (01) ==
LOC: ED 11:55
DX: N39.0 Urinary tract infection, site not specified (principal); S72.332D Displaced oblique fracture of shaft of left femur, subsequent encounter for closed fracture with routine healing; E11.42 Type 2 diabetes mellitus with diabetic polyneuropathy; I10 Essential (primary) hypertension; Z88.8 Allergy status to other drugs, medicaments and biological substances; Z88.1 Allergy status to other antibiotic agents; Z79.899 Other long term (current) drug therapy; Z79.4 Long term (current) use of insulin
CPT/HCPCS: 51702; 81001; 99284-25

== ENCOUNTER 2021-05-12 20:33 | Emergency (ER) | payer MEDICARE, OTHER ==
[~2021-05-12] VITALS: Ht 182.9 cm; Wt 122.5 kg
[~2021-05-12 20:33] MED LIST changes: +CEPHALEXIN500 M1 PO
--- OUTSIDE RECORDS SUMMARY | 2021-05-12 20:36 | XMS ---
PreMana Notification: HERMINIO JON Security Dry Can Tender Events No recent Security Events currently on file CRITERIA MET - [facility] CARE PROVIDERS KODI SCHUSTER Internal [facility] Current PHONE: Unknown MAYRA HERNANDEZ [facility] 12/10/2020-Current PHONE: [phone] Prashanth Diana Press Maintainer/Regional Clinical Director 04/30/2021-Current PHONE: [phone] Rohan Camara DO [facility] Current PHONE: Unknown JAHAIRA BRODERICK Nurse Practitioner: Current PHONE: Unknown Jesus has no Care Guidelines for this patient. Юлия VISIT COUNT (12 MO.) 6 [facility] TOTAL 6 NOTE: Visits indicate total known visits. ED/UCC VISIT TRACKING (12 MO.) 05/12/2021 20:33 [facility] [place] TYPE: Emergency COMPLAINT: - FLU SYMPTOMS 12/09/2020 11:56 [facility] [place] TYPE: Emergency COMPLAINT: - CHILLS,HEADACHE DIAGNOSES: - Allergy status to other antibiotic agents - intermodal customer service (current) use of insulin - Other terminal makeup operator (current) drug therapy - Essential (primary) hypertension - Displaced oblique fracture of shaft of left femur, subsequent encounter for closed fracture with routine healing - Type 2 diabetes mellitus with diabetic polyneuropathy - Urinary tract infection, site not specified - Allergy status to other drugs, medicaments and biological substances 12/07/2020 17:16 [facility] [place] TYPE: Emergency COMPLAINT: - LEG INJURY DIAGNOSES: - Allergy status to other antibiotic agents - Displaced spiral fracture of shaft of left femur, initial encounter for closed fracture - intermodal customer service (current) use of insulin - Type 2 diabetes mellitus with diabetic polyneuropathy - Other terminal makeup operator (current) drug therapy - Allergy status to other drugs, medicaments and biological substances - Essential (primary) hypertension - Paraplegia, unspecified - Personal history of nicotine dependence - Unspecified fall, initial encounter 10/21/2020 19:33 [facility] [place] TYPE: Emergency COMPLAINT: - FEVER,NAUSEA DIAGNOSES: - Type 2 diabetes mellitus with diabetic neuropathy, unspecified - Allergy status to other antibiotic agents - intermodal customer service (current) use of insulin - Urinary tract infection, site not specified - Personal history of nicotine dependence - Fever, unspecified - Essential (primary) hypertension - Allergy status to other drugs, medicaments and biological substances - Other senior care (current) drug therapy 09/25/2020 10:52 [facility] [place] TYPE: Emergency COMPLAINT: - CATHETER ISSUE DIAGNOSES: - Urinary tract infection, site not specified - Personal history of nicotine dependence - intermodal customer service (current) use of insulin - Allergy status to other drugs, medicaments and biological substances - Other senior care (current) drug therapy - Allergy status to other antibiotic agents - Type 2 diabetes mellitus with diabetic polyneuropathy - Encounter for fitting and adjustment of urinary device - Essential (primary) hypertension 08/03/2020 19:33 [facility] [place] TYPE: Emergency COMPLAINT: - POSSIBLE UTI, FEVER DIAGNOSES: - Fever, unspecified - correction (current) use of insulin - Allergy status to other drugs, medicaments and biological substances - Urinary tract infection, site not specified - Allergy status to other antibiotic agents - Essential (primary) hypertension - Type 2 diabetes mellitus with diabetic polyneuropathy - Other terminal makeup operator (current) drug therapy INPATIENT VISIT TRACKING (12 MO.) 03/10/2021 18:06 [facility] TYPE: Orthopedic DIAGNOSES: 74521. Unspecified fracture of lower end of left femur, sequela [id number]. Unspecified fracture of lower end of left femur, subsequent encounter for closed fracture with nonunion [id number]. Displaced comminuted fracture of shaft of left femur, initial encounter for closed fracture [id number]. Unspecified fracture of lower end of left femur, subsequent encounter for closed fracture with nonunion [id number]
[2021-05-13] MEDS ORDERED: CEPHALEXIN500 MG PO (01:25)
--- NOTE | 2021-05-13 14:07 | EKG ---
[facility] [address] [place], [place] [address] Signed Sinus tachycardia Nonspecific ST and T wave abnormality Abnormal ECG When compared with ECG of 21-OCT-2020 20:51, Nonspecific T wave abnormality no longer evident in Lateral leads Confirmed by ARMANDO WILLIS DO ([id number]) on 05/13/2021 2:07:16 PM Electronically Signed By: ARMANDO WILLIS DO 05/13/21 1407 PATIENT NAME: HERMINIO JON Electrocardiogram DATE OF : 55 PHYSICIAN: ARMANDO WILLIS DO REPORT #: [id number] REPORT IS CONFIDENTIAL AND NOT TO BE RELEASED WITHOUT AUTHORIZATION
== END 2021-05-13 01:30 | disposition home or self-care (01) ==
LOC: ED 20:33
DX: U07.1 COVID-19 (principal); N39.0 Urinary tract infection, site not specified; E11.42 Type 2 diabetes mellitus with diabetic polyneuropathy; I10 Essential (primary) hypertension; Z88.1 Allergy status to other antibiotic agents; Z88.8 Allergy status to other drugs, medicaments and biological substances; Z79.899 Other long term (current) drug therapy; Z79.4 Long term (current) use of insulin
CPT/HCPCS: 51702; 71045; 74176; 80053; 81001; 83605; 84484; 85025; 93005; 93010; 99285-25; C9803; J0696; J2405; J7030; U0003

== ENCOUNTER 2021-06-16 08:50 | Inpatient (IN) | payer MEDICARE, OTHER ==
[~2021-06-16] VITALS: Ht 182.9 cm; Wt 130.8 kg
[2021-06-16] MEDS ORDERED: BASAGLAR K100 UNIT/1 SQ (09:57)
[2021-06-16] MEDS ORDERED: BACTRIM DS TAB1 EACH PO (09:57)
--- OUTSIDE RECORDS SUMMARY | 2021-06-16 10:22 | XMS ---
PreMana Notification: HERMINIO JON Security Mcat Tutor Events No recent Security Events currently on file CRITERIA MET - [facility] CARE PROVIDERS KODI SCHUSTER Internal [facility] Current PHONE: [phone] DAVID [facility] 12/10/2020-Current PHONE: [phone] Prashanth Diana Auto Glass Technician/Cardiovascular Rn 04/30/2021-Current PHONE: [phone] Rohan Camara [facility] Current PHONE: Unknown JAHAIRA BRODERICK Nurse Practitioner: Current PHONE: Unknown Jesus has no Care Guidelines for this patient. E.DIta VISIT COUNT (12 MO.) [address] [facility] TOTAL 7 NOTE: Visits indicate total known visits. ED/UCC VISIT TRACKING (12 MO.) 06/16/2021 08:52 [facility] [place] TYPE: Emergency COMPLAINT: - POSS UTI 05/12/2021 20:33 [facility] [place] TYPE: Emergency COMPLAINT: - FLU SYMPTOMS DIAGNOSES: - Allergy status to other antibiotic agents - computer terminal operator (current) use of insulin - Allergy status to other drugs, medicaments and biological substances - Essential (primary) hypertension - Type 2 diabetes mellitus with diabetic polyneuropathy - Other detention (current) drug therapy - Urinary tract infection, site not specified - Unspecified abdominal pain - COVID-19 12/09/2020 11:56 [facility] [place] TYPE: Emergency COMPLAINT: - CHILLS,HEADACHE DIAGNOSES: - Allergy status to other antibiotic agents - longterm (current) use of insulin - Other equipment operator intermodal yard (current) drug therapy - Essential (primary) hypertension [...] femur, initial encounter for closed fracture - longterm (current) use of insulin - Type 2 diabetes mellitus with diabetic polyneuropathy - Other equipment operator intermodal yard (current) drug therapy - Allergy status to other drugs, medicaments and biological substances - Essential (primary) hypertension - Paraplegia, unspecified - Personal history of nicotine dependence - Unspecified fall, initial encounter 10/21/2020 19:33 [facility] [place] TYPE: Emergency COMPLAINT: - FEVER,NAUSEA DIAGNOSES: - Type 2 diabetes mellitus with diabetic neuropathy, unspecified - Allergy status to other antibiotic agents - longterm (current) use of insulin - Urinary tract infection, site not specified - Personal history of nicotine dependence - Fever, unspecified - Essential (primary) hypertension - Allergy status to other drugs, medicaments and biological substances - Other detention (current) drug therapy 09/25/2020 10:52 [facility] [place] TYPE: Emergency COMPLAINT: - CATHETER ISSUE DIAGNOSES: - Urinary tract infection, site not specified - Personal history of nicotine dependence - longterm (current) use of insulin - Allergy status to other drugs, medicaments and biological substances - Other equipment operator intermodal yard (current) drug therapy - Allergy status to other antibiotic agents - Type 2 diabetes mellitus with diabetic polyneuropathy - Encounter for fitting and adjustment of urinary device - Essential (primary) hypertension 08/03/2020 19:33 [facility] [place] TYPE: Emergency COMPLAINT: - POSSIBLE UTI, FEVER DIAGNOSES: - Fever, unspecified - longterm (current) use of insulin - Allergy status to other drugs, medicaments and biological substances - Urinary tract infection, site not specified - Allergy status to other antibiotic agents - Essential (primary) hypertension - Type 2 diabetes mellitus with diabetic polyneuropathy - Other detention (current) drug therapy INPATIENT VISIT TRACKING (12 MO.) 03/10/2021 18:06 [facility] TYPE: Orthopedic DIAGNOSES: [id number]. Unspecified fracture of lower end of left femur, sequela [id number]. Unspecified fracture of lower end of left femur, subsequent encounter for closed fracture with nonunion [id number]. Displaced comminuted fracture of shaft of left femur, initial encounter for closed fracture [id number]. Unspecified fracture of lower end of left femur, subsequent encounter for closed fracture with nonunion [email or web address]
--- NOTE | 2021-06-16 18:57 | NUR ---
PATIENT ARRIVED FROM PACU AT 1845. VITALS IN, ICE WATER PROVIDED. PATIENT REPORTS 7/10 GENERALIZED PAIN, ENDORSES CHRONIC PAIN. LEFT HIP WOUND HAS ARUNA AND HEMOVAC, ICE PACK PRESENT.
--- NOTE | 2021-06-16 19:03 | NUR ---
06/16/211902 Carina Stout 1806 PT ARRIVED IN PACU WIDE AWAKE C/O FEELING COLD. WARM BLANKETS AND SARA PAW PLACED. 1811 BLOOD SUGAR 172. NO NEW ORDERS. 1819 ICE TO L HIP. NO C/O'S. 1829 TO MS ROOM 115. SARA PAW PLACED PER PT COMFORT R/T FEELING COLD. ARUNA FLASHING RED AND DR AWARE. HEMOVAC IN PLACE. 1839 REPORT GIVEN TO RN. LIGHTS TURNED OFF PER PT REQUEST AND BED PLUGGED IN.
--- NOTE | 2021-06-16 19:31 | NUR ---
REPORT RECEIVED FROM TINO MARIE. pt ON ISOLATION PRECAUTIONS.
--- NOTE | 2021-06-16 20:41 | NUR ---
pt RESTING IN BED AWAKE. pt DENIES ANY PAIN. REFUSES TRAMADOL. CBG 171, pt REFUSES SS INSULIN. EDUCATION PROVIDED ON WOUND HEALING, CONTROLLING BLOOD GLUCOSE. pt STATES "YEAH I KNOW". MD UPDATED. ASSESSMENT COMPLETE. HEMOVAC EMPTIED 50 MLS BLOOD DRAINAGE. DRESSING WITH SMALL SPOTS OF DRIED DRAINAGE, FLASHING ORAGE LIGHT. ORIENATION TO ROOM PROVIDED. CALL LIGHT IN REACH. pt DEMONSTRATES USE. ATTEMPT TO TURN pt, REFUSES AT THIS TIME. NO ADDITIONAL NEEDS. WATER IN REACH.
--- NOTE | 2021-06-16 22:36 | NUR ---
ASSISTED PRIMARY RN TOYA. POST OP V/S AND I&O'S TAKEN AND RECORDED. CHANGED GOWN. PATIENT WAS EATING HIS TURKEY SANDWICH AND PROVIDED COFFEE WELL. CALL LIGHT WITHIN REACH. ROOM LIGHTS OFF.
--- NOTE | 2021-06-16 22:39 | NUR ---
POST OP VSS. WILLIS EMPTIED. pt COMPLAINS OF 7/10 PAIN "EVERYWHERE, MY BACK, SIDES". REFUSES REPOSITIONING, STATES I'LL TURN ON MY SIDE IN A SECOND. SITTING UP IN BED EATING SANDWICH. SS INSULIN ADMINISTERED AT THIS TIME, pt AGREEABLE. IV VANCOMYCIN INFUSING WNL. ICE WATER REFILLED AND IN REACH. pt DENIES ADDITIONAL NEEDS.
--- NOTE | 2021-06-16 23:22 | NUR ---
ASSISTED TO TURN ON HIS RIGHT SIDE, PILLOW SUPPORTS. CALL LIGHT WITHIN REACH
--- NOTE | 2021-06-17 00:20 | NUR ---
IV SL WNL. pt RESTING IN BED ON RIGHT SIDE. BREATHING IS EQUAL AND UNLABORED. WILLIS DRAINING. CALL LIGHT WITHIN REACH.
--- NOTE | 2021-06-17 02:30 | NUR ---
2 pa. THIS COMMUNICATIONS TECHNOLOGIST AND PRIMARY RN TOYA. V/S AND I&O DONE. EMPTIED FOLLEY AND WOUND VAC. REMOVED KIESHA SHEET DUE TO PATIENT C/O WET, GOWN CHANGED AND BLANKET. PATIENT IS COMFORTABLE ON LAYING HIS BACK FOR NOW. HEEL PROTECTOR PLACED. CALL LIGHT IN REACH.
--- NOTE | 2021-06-17 02:50 | NUR ---
CALL LIGHT ANSWERED. 2 RN ASSIST TO REPOSITION pt. REQUESTING TO LIE ON BACK. HEEL PROTECTORS PLACED ON FEET. ASSESSMENT COMPLETE. pt DENIES PAIN. DRAINAGE ON ARUNA DRESSING UNCHANGED. HEMOVAC EMPTIED, 100 MLS SANGUINOUS DRAINAGE. OSTOMY BAG IN PLACE. WILLIS DRAINED. ICE WATER REFILLED AND IN REACH. VSS. CALL LIGHT IN REACH. NO ADDITIONAL REQUESTS AT THIS TIME. LIGHTS OFF IN ROOM.
--- NOTE | 2021-06-17 03:41 | NUR ---
PHONE CALL FROM [facility]. UPDATED ON pt STATUS. NO BEDS AVAILABLE AT THIS TIME.
--- NOTE | 2021-06-17 04:30 | NUR ---
CHECKED ON pt. RESTING IN BED WITH EYES CLOSED, BREATHING EQUAL AND UNLABORED. NO DISTRESS NOTED.
--- NOTE | 2021-06-17 06:35 | NUR ---
CALL LIGHT ANSWERED. WARM BLANKETS PROVIDED. VSS. pt ASSISTED TO REPOSITION IN BED TO RIGHT SIDE. COMPLAINS OF HEARTBURN. MD CALLED. TELEPHONE ORDERS REPEATED BACK. HEMOVAC EMPTIED 25 MLS SANGUINOUS DRAINAGE. WILLIS EMPTIED. pt REFUSES TYLENOL, REQUESTING NORCO, EDUCATION PROVIDED. pt RATES PAIN 5/10 IN BACK, SIDES "ALL OVER" STATES STRAIGHT TYLENOL MAKES HIM UNCOMFORTABLE, HOT. RESTING ON RIGHT SIDE WITH EYES CLOSED. BREATHING UNLABORED.
--- NOTE | 2021-06-17 07:32 | NUR ---
REPORT RECIEVED FROM TOYA ALBERTO RN.
--- NOTE | 2021-06-17 07:53 | OR ---
[facility] [address], [place] [address] Signed DATE OF OPERATION: 06/16/2021 SURGEON: Yulia Washington MD PREOPERATIVE DIAGNOSIS: Abscess left greater trochanteric bursa. POSTOPERATIVE DIAGNOSIS: Abscess left greater trochanteric bursa. PROCEDURE PERFORMED: Irrigation, debridement, skin, subcutaneous tissue, and bone, left hip. CLINICAL MASSAGE THERAPIST: Julieth Kirkland PA-C. Julieth was present and critical for all portions of procedure. ANESTHESIA: MAC. BLOOD LOSS: 200 mL. Deep cultures and Gram stain were taken. BRIEF HISTORY: Pedrito is a 65-year-old T8 paraplegic with 2 to 3 weeks of feeling ill. He was seen in the ER and a CT scan revealed fluid in the lateral and posterior hip area. The CT scan showed stranding and gas in the fluid. He did have a white count that was elevated, although he was not septic. Risks, benefits, and alternatives of operation here were discussed with him. 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 Because we were unable to transfer him, he elected to proceed with surgery here. DESCRIPTION OF PROCEDURE: Once consent was obtained, he was taken to the operating room, placed on the operating room table. He was rolled into a slight decubitus position with towel rolls behind his back. This provided excellent access to his hip. He has had previous flaps done to both hips laterally with what appears to be vascularized muscle flaps. The incisions were multiple and in various directions. I marked my incision out in the midportion of the flap in a horizontal orientation or longitudinal orientation. The hip was then prepped and draped in a standard sterile fashion. The incision was made 5 inches long, Electronically Signed By: YULIA WASHINGTON MD 06/17/21 0753 PATIENT NAME: HERMINIO JON OPERATIVE REPORT DATE OF : 55 REPORT #: [id number] PHYSICIAN: YULIA WASHINGTON MD PCP: MAYRA HERNANDEZ MD REPORT IS CONFIDENTIAL AND NOT TO BE RELEASED WITHOUT AUTHORIZATION [facility] [address], [place] [address] Signed carried through the skin and subcutaneous tissue with bleeders cauterized as we went. We were able to enter the abscess with extensive exudate squirting out of the wound. Deep cultures were taken from this, passed off the table and Gram stain was sent. The incision was deepened down into the cavity. There were actually three cavities, one far posterior in the subcutaneous area, one along the posterior hip and one along the anterior hip. This went about 8 inches distally and only about an inch proximally from the greater trochanter. There was no passages into the hip joint or into the bone that I could palpate. The bursal tissue was then debrided using rongeurs and curettes and pulse lavaged using antibiotic irrigation. We did do an Irrisept soak in the middle portion and then irrigated with more . The wound showed no significant bleeding at the end of the procedure. A 10-Ukrainian flat Oscar drain was placed in the posterior portion of the cavity. A standard round drain was placed anteriorly and both were hooked to a suction device. These were placed percutaneously anteriorly. The wound was then closed using simple interrupted 2-0 nylon sutures. The wound was then dressed with a ARUNA wound VAC. He was awakened, taken to the recovery room in satisfactory condition. No evidence of malignant hyperthermia was noted on his delivery to the recovery room. Yulia Washington MD BA/IVANNAL /[id number] Copies: ~ Electronically Signed By: YULIA WASHINGTON MD 06/17/21 0753 PATIENT NAME: HERMINIO JON OPERATIVE REPORT DATE OF : 55 REPORT #: [id number] PHYSICIAN: YULIA WASHINGTON MD PCP: MAYRA HERNANDEZ MD REPORT IS CONFIDENTIAL AND NOT TO BE RELEASED WITHOUT AUTHORIZATION
--- NOTE | 2021-06-17 07:58 | NUR ---
MORNING ASSESSMENT DONE. DR. CESPEDES IN TO SEE PATIENT. VITALS ARE STABLE. PATIENT AGREED TO TAKE MORNING PROTONIX AND METOPROLOL, REFUSED SENNA. BG IS 198 AND PATIENT DOES NOT WANT TO TAKE INSULIN UNTIL HIS BREAKFAST ARRIVES. ARUNA DRESSING INTACT WITH LIGHT FLASHING, HEMOVAC IN PLACE. WILLIS CATHETER DRAINING CLEAR URINE, OSTOMY WAFER AND BAG NEED TO BE REPLACED AND PATIENT USUALLY DOES THIS HIMSELF. SUPPLIES PROVIDED AND PATIENT IS CHANGING APPLIANCE HIMSELF (INSISTED ON CHANGING IT HIMSELF) PATIENT RATES PAIN 2/10.
--- NOTE | 2021-06-17 09:16 | NUR ---
DR. ROMAN IN TO SEE PATIENT. IV VANCO INFUSING.
--- NOTE | 2021-06-17 09:51 | NUR ---
PATIENT GIVEN TWO NORCO FOR 6/10 SOMATIC PAIN. PATIENT IS PLANNING ON TAKING A NAP. IV VANCO INFUSING FOR 2 HOURS.
--- NOTE | 2021-06-17 10:46 | NUR ---
Spoke with Dr. Washington this am when he made rounds. Plan is for pt to transfer to [facility] in 3-5 days when they have a bed open. Spoke with Dee from in [place]. UPdated to the above and faxed H&P, surgical note, and consult from the hospitalist.
--- NOTE | 2021-06-17 10:55 | NUR ---
PATIENT GIVEN DISCHARGE INSTRUCTIONS, VERBALIZED AN UNDERSTANDING OF DISCHARGE INSTRUCTIONS. RIGHT ARM SALINE LOCK REMOVED WITH CATHETER INTACT. MOM IS TO BE HERE IN ONE HOUR, PLAN TO DO VITALS PRIOR TO DISCHARGE.
--- NOTE | 2021-06-17 11:58 | NUR ---
PATIENT GIVEN 5 UNITS OF INSULIN SQ FOR 233 BG PATIENT IS SITTING UP FOR LUNCH, REPOSITIONED. HEMOVAC EMPTIED FOR 30ML BLOODY DRAINAGE, SUCTION RE ESTABLISHED. PATIENT DENIES OTHER NEEDS AT THIS TIME.
--- NOTE | 2021-06-17 13:09 | NUR ---
TINO ARMIJO, IN TO EVALUATE AND PLACE PICC LINE.
--- NOTE | 2021-06-17 14:40 | NUR ---
PATIENT HAD RIGHT ARM PICC LINE PLACED TODAY, TOLERATED PROCEDURE WELL.
--- NOTE | 2021-06-17 14:43 | NUR ---
PICC INSERTION NOTE ORDERS RECIEVED TO EVALUATE JANE FOR POSSIBLE PICC INSERTION. AFTER REVIEWING THE CHART AND INTERVIEWING THE PROCEDURE, NO ABSOLUTE CONTRAINDICATIONS WERE IDENTIFIED. RISKS AND COMPLICATIONS OF PICC INSERTION REVIEWED WITH THE PT AND INFORMED CONSENT SIGNED PRIOR TO THE START OF THE PROCEDURE. THE RISK OF INFECTION WAS HIGHLIGHTED FOR THE PT. THE RIGHT ARM WAS EVALUATED WITH ULTRASOUND AND THE RIGHT BASILIC VEIN WAS IDENTIFIED AT A DEPTH OF 2CM. THE VEIN IS LARGE ENOUGH TO ACCEPT A 4 FR PICC WHICH IS ESTIMATED TO FILL 27% OF THE VEIN AT THE INSERTION POINT. FULL CDC RECOMENDATIONS REGARDING INFECTION PREVENTION WERE FOLLOWED FOR THE DURATON OF THE PICC INSERTION AND STERILE DRESSING APPLICATION. THE RIGHT ARM WAS PREPPED AND DRAPED AND THERE WERE NO DIFFICULTIES ACCESSING THE BASILIC VEIN, ADVANCING THE GUIDEWIRE, INTRODUCER, OR PICC. BRISK DARK RED NONPULSATILE BLOOD WAS SEEN FLOWING FROM THE INTRODUCER DURING THE PROCEDURE. SHERLOCK TPS AND 3CG WERE USED DURING INSERTION. THE PICC WAS IN A CENTRAL LOCATION AFTER THE INITIAL CHEST XRAY. THE TIP OF THE PICC WAS JUDGED TO BE DEEP BY THIS RN AND THE LINE WAS WITHDRAWN 3 CM, REDRESSED, AND REXRAYED WHICH SHOWED THE LINE IN A MID SVC LOCATION. WE WILL WAIT FOR CLEARANCE FROM RADIOLOGY PRIOR TO USING THE PICC.
--- NOTE | 2021-06-17 14:58 | NUR ---
PATIENT GIVEN TWO NORCO FOR 5/10 SOMATIC PAIN. HEMOVAC EMPTIED FOR ANOTHER 50CC FOR A TOTAL OF 80ML SO FAR.
--- NOTE | 2021-06-17 15:17 | NUR ---
MED REC COMPLETED BY PHARMACY
--- NOTE | 2021-06-17 15:51 | NUR ---
PATIENT IS RESTING IN BED, MORE COMFORTBLE AFTER PAIN MEDICATION 09/07.
--- NOTE | 2021-06-17 16:14 | NUR ---
Pt resides at [facility]. Pt uses an electric wc, shower chair, hoy er and vazquez catheter supplies. Pt is awaiting transfer to [facility] for abcess in the trochanteric bursa. Transfer in 3-5 days when bed opens. Pt receives full care at [facility] with dressing, hoyering, showers Pt is able to feed self.
--- NOTE | 2021-06-17 17:43 | NUR ---
PATIENT POSITIONED ON RIGHT SIDE, PILLOW BETWEEN LEGS. PATIENT ATE 50% OF DINNER, DENIES PAIN.
--- NOTE | 2021-06-17 18:04 | NUR ---
SHANE FROM [facility] CALLED FOR UPDATE ON PATIENT. SHE DID INDICATE THAT IT COULD BE SEVERAL MORE DAYS BEFORE A BED BECAME AVAILABLE.
--- NOTE | 2021-06-17 18:44 | NUR ---
PATIENT IN BED RESTING WITH EYES CLOSED. VITALS AND I&O'S CHARTED. CALL LIGHT IN REACH. NO FURTHER NEEDS AT THIS TIME.
--- NOTE | 2021-06-17 19:30 | NUR ---
pt RESTING IN BED. ISOLATION PRECAUTIONS. REPORT RECEIVED FROM TINO MARIE.
--- NOTE | 2021-06-17 20:40 | NUR ---
ASSISTED PRIMARY RN TOYA. V/S AND I&O'S TAKEN. WILLIS AND WOUND VAC EMPTIED. WILLIS WAS CHANGED BY RN. PATIENT REPOSITIONED.
--- NOTE | 2021-06-17 21:00 | NUR ---
pt SLEEPING, AWAKENS TO VOICE. ALERT AND ORIENTED TO ALL. ASSESSMENT COMPLETE. pt RATES PAIN 7/10 IN HIPS, BACK, "EVERYWHERE". DRESSING CDI LEFT HIP, DRAINAGE UNCHANGED. 18 MLS SANGUINOUS DRAINAGE EMPTIED FROM HEMOVAC. ARUNA DRESSING IN PLACE, FLASHING ORANGE LIGHT. WILLIS CATHETER CHANGED AT THIS TIME, 18 TAMAZIGHT WILLIS PER POLICY. STERILE TECHNIQUE MAINTAINED, DRAINING CLEAR YELLOW URINE. REPOSITIONED ON BACK PER REQUEST. pt ABLE TO TURN SELF, ASSISTED TO STRAIGHTEN HIPS. PICC LINE FLUSHED WNL. IV ANTIBIOTIC INFUSING ORDERED. HEEL PROTECTORS ON. CALL LIGHT IN REACH.
[2021-06-17] MEDS ORDERED: ACTOS15 MG PO (21:10)
[2021-06-17] MEDS ORDERED: CELEBREX200 MG PO (21:11)
[2021-06-17] MEDS ORDERED: LIPITOR10 MG PO (21:11)
[2021-06-17] MEDS ORDERED: NOVOLOG100 UNIT/1 SUB-Q (21:12)
--- NOTE | 2021-06-17 21:13 | NUR ---
CONTACTED [facility] FOR UPDATED MEDICATION LIST. LIST FAXED, CALLED TALKED WITH MAK WHO CONFIRED THE LIST
--- NOTE | 2021-06-17 22:29 | NUR ---
CALL LIGHT ANSWERED. pt ASKING TO CHECK HIS IV IT SOUNDS DIFFERENT. IV ANTIBIOTIC INFUSING WNL. WARM BLANKETS PROVIDED. NO ADDITIONAL REQUESTS AT THIS TIME.
--- NOTE | 2021-06-17 23:08 | NUR ---
IV ANTIBIOTIC COMPLETE. PICC LINE HEPARIN LOCKED WNL. ASSISTED pt TO REPOSITION TO RIGHT SIDE LYING. CALL LIGHT IN REACH. pt STATES PAIN IS NOW "ABOUT A 4, IT WILL BE BETTER NOW LYING ON MY SIDE.
--- NOTE | 2021-06-18 01:15 | NUR ---
CHECKED ON pt. RESTING IN BED ON RIGHT SIDE. BREATHING UNLABORED. NO DISTRESS NOTED.
--- NOTE | 2021-06-18 02:26 | NUR ---
IN ROOM TO CHECK ON pt. RESTING IN BED WITH EYES CLOSED. BREATHING EQUAL AND UNLABORED.
--- NOTE | 2021-06-18 03:28 | NUR ---
TRI FROM [facility] CALLED FOR UPDATE. TO LET TRANSFER CENTER KNOW IF ANY SIGNIFICANT CHANGES OCCUR. PROBABLY NOT A BED TONIGHT, BUT THEY WILL KEEP IN TOUCH.
--- NOTE | 2021-06-18 05:30 | NUR ---
CALL LIGHT ANSWERED. pt ASSISTED TO REPOSITION TO BACK LYING POSITION. pt ABLE TO MOVE UPPER BODY WITH TRAPEZE. LEGS ELEVATED ON PILLOWS. ASSESSMENT COMPLETE. pt DENIES ANY PAIN. REFUSES ANY PAIN MEDICATIONS SCHEDULED. VSS. HEMOVAC WITH 48 MLS SANGUINOUS DRAINAGE EMPTIED. ARUNA DRESSING CDI, DRAINAGE UNCHANGED, FLASHING ORANGE LIGHT. ICE WATER REFILLED. CALL LIGHT IN REACH.
--- NOTE | 2021-06-18 07:20 | NUR ---
SHIFT REPORT FROM NURSE PITTMAN. PT APPEARS TO BE SLEEPING, EYES CLOSED, EVEN RR NOTED. CALL LIGHT WITHIN REACH.
--- NOTE | 2021-06-18 08:00 | NUR ---
PT AWAKE IN BED. WHITE BOARD UPDATED. LAB IN THE ROOM TO DRAW BLOOD, PT ASKING FOR TINO LEE. BLOOD SUGAR DONE. TINO LEE IN THE ROOM. CALL LIGHT WITHIN REACH. FRESH COFFEE GIVEN. NO FURTHER NEEDS AT THIS TIME
[2021-06-18] MEDS ORDERED: TOPROL XL100 MG PO (08:38)
[2021-06-18] MEDS ORDERED: ONDANSETRON ODT4 MG PO (08:39)
--- NOTE | 2021-06-18 08:40 | NUR ---
MED REC COMPLETED BY PHARMACY
--- NOTE | 2021-06-18 10:50 | NUR ---
IN ROOM FOR FULL BED CHANGE AND GOWN CHANGE. COFFEE HAD BEEN SPILLED INTO BED. PT CAN TURN HIMSELF WELL FROM SIDE TO SIDE. HEMOVAC EMPTIED WITH ONLY 20ML OUT AT THIS TIME. WILLIS CARE PERFORMED, ALLEVYNS TO BILATERAL HEELS WITH HEEL PROTECTORS ON. WOUND DRESSING IS INTACT. DR CESPEDES WAS HERE EARLIER TO VISIT PT AND INSPECT WOUND. PT REPORTS 5/10 PAIN AND REQUESTS PRN NORCO WHICH IS PROVIDED. MONIO HUNG; INFUSING PER ORDERS. PT WOULD LIKE A YOGURT SNACK. WILL CONTACT KITCHEN. CALL LIGHT WITHIN REACH. NO FURTHER CARE NEEDS AT THIS TIME.
--- NOTE | 2021-06-18 11:10 | NUR ---
Spoke with Pedrito, he is resting with his head under the covers. Let him know Conrad from [facility] was asking how he is he. He thanks me and ask I tell her is fine. He is awaiting transfer to [facility]. Denies needs.
--- NOTE | 2021-06-18 12:37 | NUR ---
IN ROOM TO ADMINISTERED SS INSULIN. PT REPOSITIONED TO RIGHT SIDE. CALL LIGHT WITHIN REACH. NO FURTHER NEEDS AT THIS TIME.
--- NOTE | 2021-06-18 14:06 | NUR ---
ROUNDS: PT APPEARS TO BE SLEEPING; STILL LAYING RIGHT LATERAL. NO APPARENT SIGNS OF DISTRESS. CALL LIGHT WITHIN REACH.
--- NOTE | 2021-06-18 14:53 | NUR ---
VANCO INFUSION FINISHED; PT REQUESTS SNACK; YOGURT GIVEN. PT DENIES FURTHER NEEDS AT THIS TIME. PT IS LAYING ON HIS BACK NOW. COLOSTOMY IS EMPTY, WILLIS BAG EMPTIED. CALL LIGHT WITHIN REACH.
--- NOTE | 2021-06-18 19:15 | NUR ---
REPORT RECEIVED FROM TINO LEE. pt RESTING IN BED. NO DISTRESS NOTED.
--- NOTE | 2021-06-18 21:25 | NUR ---
pt RESTING IN BED AWAKE. RATES PAIN 5/10 "ALL OVER, MOSTLY MY BACK." ASSISTED TO RESPOSITION IN BED TO RIGHT SIDE LYING. HEEL PROTECTORS ON. pt REFUSES SCHEDULED PAIN MEDICATIONS OFFERED. EDUCATION PROVIDED ON BOWEL MEDICATIONS pt TRIES TO REFUSE, AGREEABLE TO TAKE SENNA AT THIS TIME. VSS. WILLIS CARE COMPLETE. HEMOVAC EMPTIED, 20 MLS SEROSANGUINOUS DRAINAGE. ARUNA DRESSING INTACT, SMALL AMT SHADOWING ON DRAESSING, UNCHANGED. CALL LIGHT WITHIN REACH. NO ADDITIONAL REQUESTS.
--- NOTE | 2021-06-18 23:17 | NUR ---
CALL LIGHT ANSWERED. pt C/O 12/07 LOWER BACK PAIN. PRN PAIN MEDICATION ADMINISTERED. pt REFUSES REPOSITIONING AT THIS TIME. ICE WATER REFILLED. NO ADDITIONAL REQUESTS.
--- NOTE | 2021-06-19 00:15 | NUR ---
IN pt ROOM FOR IV ANTIBIOTIC ADMINISTRATION. PICC LINE FLUSHED WNL, BRISK BLOOD RETURN. IV ANTIBIOTIC INFUSING ORDERED. pt ASSISTED TO REPOSITION IN BED, LYING ON BACK. HEEL PROTECTORS ON. PILLOWS UNDER LEGS. ARUNA DRESSING INTACT, HEMOVAC NEXT TO pt, ALL TUBES AND LINES OUT FROM UNDER pt. WILLIS DRAINING CLEAR YELLOW URINE. CALL LIGHT IN REACH. NO ADDITIONAL REQUESTS.
--- NOTE | 2021-06-19 02:10 | NUR ---
IV ANTIBIOTIC COMPLETE. PICC LINE HEPARIN LOCKED WNL. pt AWAKENS TO VOICE EASILY. ASSISTED TO REPOSITION TO RIGHT SIDE LYING. ASSESSMENT COMPLETE. ARUNA DRESSING INTACT, DRAINAGE UNCHANGED. HEMOVAC IN PLACE, TUBING CLEARED FROM UNDER pt. HEEL PROTECTORS ON. PILLOWS BETWEEN LEGS. pt STATES PAIN IS 5-6/10 IN LOWER BACK, STATES RESOLVES ALREADY AFTER REPOSITIONING. CALL LIGHT WITHIN REACH. pt HAS NO ADDITIONAL REQUESTS AT THIS TIME.
--- NOTE | 2021-06-19 04:58 | NUR ---
pt RESTING IN BED WITH EYES CLOSED, HEAD COVERED. BREATHING EQUAL AND UNLABORED. LIGHTS OFF IN ROOM.
--- NOTE | 2021-06-19 05:30 | NUR ---
CALL LIGHT ANSWERED. pt PROVIDED WITH WARM BLANKETS REQUESTED. VSS. HEMOVAC EMPTIED 20 MLS SEROSANGUINOUS FLUID. WILLIS EMPTIED, CLEAR YELLOW URINE. ICE WATER PROVIDED. pt HAS CALL LIGHT IN REACH. NO ADDITIONAL REQUESTS.
--- NOTE | 2021-06-19 07:15 | NUR ---
SHIFT REPORT FROM NURSE PITTMAN. PT IS SITTING UP IN BED, PLAYING ON CELL PHONE. CALL LIGHT WITHIN REACH.
--- NOTE | 2021-06-19 09:00 | NUR ---
IN ROOM FOR ASSESSMENT AND MED PASS. PT HAS FINISHED BREAKFAST AND IS READY TO BRUSH TEETH. WILLIS AND PERICARE PERFORMED BY JOSUE QUILES. PT IS IN JOVIAL MOOD AND JOKING WITH STAFF. LUNG SOUNDS CLEAR, OSTOMY BAG EMPTY, 20ML RED EXUDATE EMPTIED FROM HEMOVAC. ARUNA CONTINUES TO BLINK ORANGE; DR CESPEDES AWARE. WOUND DRESSING CDI. PT REPORTS THAT HE FEELS SWELLING IN LT HIP IS IMPROVED. HEELS IN HEEL PROTECTORS WITH ALLEVYNS ON. TOES ARE CHRONICALLY DARK IN COLOR WITH SCATTERED SCABS. PT DECLINES TAKING ULTRAM HE IS NOT IN PAIN AT THIS TIME. NO FURTHER CARE NEEDS AT THIS TIME.
--- NOTE | 2021-06-19 12:15 | NUR ---
IN ROOM TO HANG IV VANCO. STUDENT INSTRUCTOR ESTEVAN IN ROOM WITH STUDENT TO ADMINISTER INSULIN. ESTEVAN HUNG IV VANCO; PICC LINE HAS GOOD BLOOD RETURN. PT IS STILL EATING LUNCH. CALL LIGHT WITHIN REACH.
--- NOTE | 2021-06-19 13:18 | NUR ---
No change in plan, pt awaiting transfer to [facility].
--- NOTE | 2021-06-19 14:10 | NUR ---
CALL LIGHT ANSWERED. PT REPORTS FEELING "LIKE I'M GETTING A FEVER". PT WOULD LIKE SOMEBODY TO CHECK HIS TEMPERATURE. ORAL TEMP 97.9F, PT REPORTS FEELING NAUSEA; 4MG ORAL ZOFRAN ADMINISTERED. PT REPORTS "JUST FEELING OFF"; CBG CHECKED, CURRENT CBG 256 (PT HAS JUST FINISHED LUNCH). PT REPORTS THAT HE JUST GOT NEWS THAT HIS GRANDDAUGHTER'S COUSIN WAS MURDERED. PT THEN STATES THAT HE "HASNT HAD TIME TO PROCESS THIS". PT THEN REQUESTS KAE, ALL VS WNL. PT GIVEN SF KAE, ENCOURAGED TO CALL IF HE CONTINUES TO FEEL "OFF".
--- NOTE | 2021-06-19 15:53 | NUR ---
ROUNDS: PT REPORTS FEELING BETTER. NO NEEDS AT THIS TIME. CALL LIGHT WITHIN REACH.
--- NOTE | 2021-06-19 17:20 | NUR ---
IN PT ROOM FOR EVENING VITALS. PT HAS EATEN HIS DINNER. BED BATH PERFORMED, NEW GOWN ON, COLOSTOMY EMPTIED OF FIRM STOOL. VSS. PT REQUESTS COFFEE AND PRN PAIN MEDS FOR BACK PAIN. BEDSIDE TABLE AND CALL LIGHT WITHIN REACH.
--- NOTE | 2021-06-19 19:48 | NUR ---
BEDSIDE REPORT. PT SITTING UP IN BED, HE IS ALERT AND ORIENTED. HIS ONLY REQUEST AT THIS TIME IS BAG OF CHIPS. ASK WIND UP WORKER FOR CHIPS WILL GET BLOOD SUGAR CHECK COMPLETE BEFORE EVENING SNACK.
--- NOTE | 2021-06-19 22:25 | NUR ---
PT REFUSED HUMALOG FAST ACTING INSULIN AT THIS TIME, HE AGREED TO TAKE LONG ACTING PER ORDERS. HE REFUSED MILK OF MAG, HE ALSO SAID HE IS NOT TAKING THE SCHEDULED TYLENOL OR ULTRAM. PT REPOSTIONED PER HIS REQUEST, FULL BED CHANGE THE DRAW SHEET AND BED SHEET APPEARED WET, POSSIBLE URINE LEAK, NOTED HIS WILLIS IS PULLED TIGHT AT STAT LOCK, WILLIS RELEASED AND LEFT FREE PER PT REQUESTS TO NOT PLACE ANOTHER STAT LOCK. ASSESSMENT COMPLETE, MEDICATIONS HE AGREES TO ADMINISTERED.
--- NOTE | 2021-06-20 00:15 | NUR ---
INTO PT ROOM TO START VANCO INFUSION, PT SLEEPING, ALERT TO NAME. HE REPORTS BACK PAIN, AGAIN OFFERED THE ULTRAM OR TYLENOL, HE REFUSED, HE SAID "WHY CANT I HAVE THE NORCO" THIS RN REMINDED PT HE WAS ADMINISTERED THE NORCO AT 2200, HE SAID "OH, OH OK" "WELL MAY BACK FEELS COLD AND THAT MAKES IT HURT" PT HAD HIS BLANKETS PULLED OVER HIS HEAD AND OFF HIS BACK. REARRANGED BLANKETS AND RUBBED BACK LIGHTLY WITH GLOVED HAND, MID BACK, PER PT REQUEST. HE SAID THIS HELP AND THANKED THIS RN, ALSO TURNED UP ROOM TEMP AND ADDED ANOTHER BLANKET TO HIS BACK SIDE. NO OTHER REQUESTS AT THIS TIME. PICC LINE ASSESSMENT, HAS BRISK BLOOD RETURN, DRESSING INTACT.
--- NOTE | 2021-06-20 04:11 | NUR ---
PT HAS SLEPT WELL OVER SHIFT. NORCO ADMINISTERED AT 2200, AT 0200 ROUNDING, PT ALERT TO STAFF, HE DID NOT REPORT PAIN OR REQUEST PAIN MEDICATIONS, HE REFUSED HIS HUMALOG 3 UNITS AT HS. HE REFUSED MILD OF MAG, HE REFUSES TYLENOL AND ULTRAM WELL. HIS DRESSING AT LEFT HIP IS INTACT, HEMOVAC DRAIN IN PLACE, WILLIS DRAINING WELL OSTOMY INTACT. PT ASSISTS WITH REPOSTIONING, HE HAS STRONG BED MOBILITY. PICC LINE WNL, BRISK BLOOD RETURN, DRESSING INTACT, H/L. V/S STABLE ON ROOM AIR. [facility] CALLED FOR UPDATE, REPORTED NO CHANGES THIS SHIFT.
--- NOTE | 2021-06-20 05:48 | NUR ---
PT REPOSITIONED, V/S COMPLETE, I/O COMPLETE, NO CONCERNS AT THIS TIME. HE DENIED NEEDING PAIN MEDICATION AT THIS TIME, HE REQUESTED SOME COFFEE, COFFEE PROVIDED. NO OTHER REQUESTS AT THIS TIME.
--- NOTE | 2021-06-20 07:43 | NUR ---
Report received from Nimo JIMÉNEZ. Pt resting in bed on R side, on RA, breathing even and unlabored. No needs identified at this time, call light in reach, will continue plan of care.
--- NOTE | 2021-06-20 08:30 | NUR ---
CBG checked and SS insulin provided per order.
--- NOTE | 2021-06-20 09:30 | NUR ---
Scheduled medications administered, assessment complete. Pt sitting up in bed after breakfast, in good spirits. VSS, A+O, on RA. Patricio draining WNL. Hemovac in place, emptied 5ml. ARUNA dressing in place, flashing orange, per report aware, C/D/I. Heel protectors in place. Fresh coffee provided, no needs at this time.
--- NOTE | 2021-06-20 12:00 | NUR ---
Spoke with Juwan, he cont. to wait for transfer. Denies needs. Denies any symptoms of Covid.
--- NOTE | 2021-06-20 12:15 | NUR ---
CBG checked, SS insulin administered, lunch provided to patient. No needs at this time, pt talkative and in good spirits, call light in reach
--- NOTE | 2021-06-20 13:37 | NUR ---
Transfer center updated on patient condition
--- NOTE | 2021-06-20 14:25 | NUR ---
Scheduled ABX infusing, VSS and I/Os complete. Assessment complete, pt denies pain at this time, no further needs
--- NOTE | 2021-06-20 15:30 | NUR ---
PATIENT HELPED WITH WASHING UNDER IS ARMS. I WASHED HIS HAIR. ERASMO CARE AND CATH CARE AND WASHED HIS LEGS. NEW GOWN. ALSO WASHED HIS BACK. PATIENT SAID HE FEELS MUCH BETTER.
--- NOTE | 2021-06-20 17:53 | NUR ---
Scheduled medications provided, pt denies PRN meds at this time. VSS, A+O, I/OS complete. Hemovac emptied of 15ml, total of 50 ml for this shift.
--- NOTE | 2021-06-20 18:48 | NUR ---
Pt doing well this shift, awaiting transfer to [facility]. Pain controlled with PRN norco, pt refuses scheduled tylenol and tramadol. CBGs in >200 range, SS insulin provided. Dressing to L hip C/D/I, hemovac drained 50 ml this shift of serousanguinous fluid. Reinaldo flashing orange. Ostomy WNL, pt manages this, states no needs. On room air, VSS, A+O.
--- NOTE | 2021-06-20 19:58 | NUR ---
BEDSIDE REPORT OUTSIDE PT ROOM (ISOLATION), HEAD OF DIGITAL'S INTO ROOM TO ASSIST PT IN REPOSITIONING AT THIS TIME. PT ALSO S/L BY TAR ROOFERTINO PLASENCIA. NO OTHER REQUESTS AT THIS TIME.
--- NOTE | 2021-06-20 21:52 | NUR ---
PT REFUSED MILK OF MAG AND SHORT ACTING INSULIN, HE ALSO REFUSED LONG ACTING INSULIN, DISCUSSED WITH PT, HE SAID HE FEELS IT IS TOO MUCH AND IT WILL DROP HIS SUGARS TO FAST OVER NIGHT, THIS RN ASKED PT HOW MUCH HE WOULD BE WILLING TO TAKE, HE SAID "I WOULD TAKE 20 UNITS OF LONG ACTING" 20 UNITS ADMINISTERED AND CHARTED ACCORDINGLY. HE REPORTED HIS PAIN 7/10 AND REQUESTED THE NORCO TWO TABS FOR PAIN COVERAGE, THIS IS ADMINISTERED. PT REPOSITIONED, WARM BLANKET APPLIED, NO OTHER REQUESTS OR CONCERNS.
--- NOTE | 2021-06-20 22:39 | NUR ---
PT SLEEPING ON RIGHT SIDE, ALERT TO NAME, THIS RN INTO ADMINISTER ABX INFUSION SCHEDULED. PT REQUESTED A DRINK OF WATER, PROVIDED. NO OTHER REQUESTS OR CONCERNS.
--- NOTE | 2021-06-21 03:08 | NUR ---
[facility] CALLED FOR UPDATE, GAVE UPDATE ON POSITIVE CULTURES AND CHANGE IN ABX FROM VANCO TO ZOSYN. INCREASE IN DRAINAGE RECORDED FROM HEMOVAC OVER LAST 24 HOURS, OTHER SANTIZO NO NEW CHANGES.
--- NOTE | 2021-06-21 03:32 | NUR ---
PT RESTING QUIELTY IN BED, REPOSTIONED SELF, EYES CLOSED RR EVEN 18 BPM, NO DISTRESS NOTED AT THIS TIME.
--- NOTE | 2021-06-21 04:35 | NUR ---
PT HAS SLEPT MOST OF SHIFT HE HAS REQUESTED PAIN MEDICATION ONCE, HE WILL ONLY TAKE NORCO FOR PAIN, HE HAS REFUSED HIS FULL INSULIN REGIMEN FOR HS, HE AGREED TO TAKE 20 UNITS OF LONG ACTING INSTEAD OF THE 30UNITS ORDERED. HE REFUSED TO TAKE ANY FAST ACTING FROM SLIDING SCALE FOR BLOOD SUGAR 235. HE REFUSED MILK OF MAG, AND SCHEDULED PAIN MEDICATIONS. HE IS VOIDING QUANTITY SUFFICIENT. PICC LINE HEP LOCKED BETWEEN ABX INFUSIONS, PICC LINE HAS BRISK BLOOD RETURN, DRESSING INTACT. NO NEW CONCERNS OVER SHIFT.
--- NOTE | 2021-06-21 08:45 | NUR ---
THIS RN IN PTS ROOM TO GIVE PT MORNING MEDS. PT STATES THAT HIS PAIN IS TOELRABLE AT THIS TIME AND HAS NOT CONCERNS FOR THE DAY. IN PTS ROOM AT THIS TIME.
--- NOTE | 2021-06-21 12:15 | NUR ---
THIS RN IN PTS ROOM TO GET PTS BLOOD SUGAR. PT REPORTS THAT HE HAS PAIN IN HIS LOWER BACK THAT IS CHRONIC. THIS RN ASKED IF PT WOULD LIKE TO BE REPOSITIONED, PT STATES THAT HE IS ABLE TO REPOSITION HIMSELF, BUT HE WOULD LIKE TO HAVE 2 NORCOS FOR A PAIN 6/. THIS RN PROVIDED PT WITH 2 NORCOS.
--- NOTE | 2021-06-21 14:55 | NUR ---
this rn in pts room to give meds and do cares. pt on the phone with friend. picc line flushes and draws back well. this rn provided pt with a bag and pt was able to empty his own ostomy, 1 med bm noted. pt states that he needs nothing further
--- NOTE | 2021-06-21 17:15 | NUR ---
THIS RN IN PTS ROOM TO GIVE PTS INSULIN. PT STATES THAT HE IS DOING WELL WITH NO COMPLAINTS. CALL LIGHT WITHIN REACH. PAIN CONTROLLED. 6 UNITS OF INSULIN GIVEN, NO SLIDING SCALE.
--- NOTE | 2021-06-21 20:45 | NUR ---
in to get vitals, vazquez emptied, pt assisted with repositioning in bed, no further needs at this time
--- NOTE | 2021-06-21 20:47 | NUR ---
PT CHUCK AVILA IN BED, ALERT AND ORIENTED, TALKING ON CELL PHONE. V/S STABLE, ASSESSMENT COMPLETE. PT DENIES NEED FOR PAIN MEDICATIONS AT THIS TIME
--- NOTE | 2021-06-22 00:30 | NUR ---
PT ASSISTED TO REPOSITION WITH JOSUE SANFORD, PT HAD QUESTIONS ABOUT HIS MEDICATIONS, THIS RN CHECKED IN TO DISCUSS HIS MEDICATIONS, HE WAS CONCERNED TO WHEN HIS HS MEDS WHERE ADMINISTERED. I EXPLAIN "YOU WHERE ON THE PHONE WITH A MAN NAMED AJ WHEN I GAVE YOU YOUR HS MEDICATIONS AND YOU WHERE WATCHING WEDNESDAY NIGHT LIVE ON YOUR PHONE WHEN I STARTED YOUR ABX" HE SAID "OH, THATS RIGHT, THATS RIGHT, GREAT." HE DENIES NEEDING ANY PAIN MEDICATIONS AT THIS TIME. HE AGAIN SAID HE WOULD NOT BE TAKING ULTRAM OR SCHEDULED TYLENOL, HE ALSO REFUSED MILK OF MAG, HE DID ALLOW HIS FULL DOSE OF INSULIN AT HS.
--- NOTE | 2021-06-22 02:03 | NUR ---
PT REPORTED PAIN 7/10 AT HIS BACK, PT ADMINISTERED TWO TABS OF NORCO, HE REFUSED SCHEDULED TRAMADOL. HE ALSO REQUESTS A WARM BLANKET FOR HIS BACK AND ANOTHER BED SPREAD OVER ALL. DISCUSSED WITH PT THAT HE WILL LIKE OVER HEAT SHORTLY, HE SAID, "I KNOW, THATS OK"
--- NOTE | 2021-06-22 03:56 | NUR ---
PER[facility] FROM TRANSFER CENTER CALLED FOR UPDATE, REPORTED A1C 7.8, ACCU CHECKS TODAY HAVE IMPROVED HS WAS 163. NO OTHER CHANGES. V/S STABLE
--- NOTE | 2021-06-22 05:00 | NUR ---
PT HAS REQUESTED PAIN COVERAGE ONCE WITH NORCO 2 TABS PRN FOR 7/10 PAIN. HE HAS BEEN ASSISTED WITH REPOSITIONING, HE HAS GREAT MOBILITY IN BED. HE HAD A LUNCH BOX EARLY IN SHIFT. HE ALLOWED ENTIRE INSULIN ORDERS TO BE ADMINISTERED, HE STILL REFUSED MILK OF MAG, TRAMADOL AND TYLENOL SCHEDULED OVER SHIFT. HE HAS SLEPT WELL OVER SHIFT. LEFT HIP DRESSING INTACT NO CHNAGES. WILLIS PATENT, URINE OUT QUANTITY SUFFICIENT.
--- NOTE | 2021-06-22 05:14 | NUR ---
PT REQUESTED SUPPLIES TO CHANGE APPLIANCE FOR OSTOMY. SUPPLIES PROVIDED, THIS RN ASSISTED PT NEED, PT CHANGE INDEPENDENTLY.
--- NOTE | 2021-06-22 07:45 | NUR ---
patient in the bed resting. blood sugar done. no further needs at this time. call light within reach.
--- NOTE | 2021-06-22 08:35 | NUR ---
THIS RN IN PTS ROOM TO GIVE PT MORNING MEDS. PT IN A PLEASANT MOOD THIS AM. PT REPORTS THAT HE NEEDS NOTHING ELSE THIS AM. PT REPORTS PAIN IS WNL FOR HIM. BLINDS OPENED. PT PLANS TO TAKE A NAP
--- NOTE | 2021-06-22 10:30 | NUR ---
this rn in pts room per pt request for pain meds. this rn also in pts room to draw labs from pts picc. draws back wnl , pt tolerated well. rated pain 7/10. this rn also assisted pt to lay on his right side. pt states that he wants to rest. pillow placed between pts knees for comfort. call light within reach
--- NOTE | 2021-06-22 12:30 | NUR ---
this rn in pts room to give pt insulin. pt resting and only wakes with touch. this rn set pt with food. pt states that he needs nothing at this time, call light wtihin reach
--- NOTE | 2021-06-22 14:00 | NUR ---
patient in the bed resting. says he is very confortable. call light with in reach. no further needs at this time.
--- NOTE | 2021-06-22 14:30 | NUR ---
THIS RN IN PTS ROOM TO HANG PTS ANTIBIOTC PT STILL ON HIS RIGHT SIDE AND IS IN A PLEASANT MOOD WITH PAIN MEDS MANAGAING HIS PAIN WELL
--- NOTE | 2021-06-22 17:30 | NUR ---
THIS RN TO CHECK ON PT. PT STATES THAT HE WOULD NOT LIKE TO TAKE HIS EVENING INSULIN DUE TO HIS BS BEING 116. THIS RN EDUCATED PT THAT HIS ABX WAS MIXED IN DEXTROSE, WHY WE WERE GIVING SLIDING SCALE AND SET AMOUNT PER MEAL. PT STATED UNDERSTADNING BUT STILL DOES NOT WANT INSULIN.
--- NOTE | 2021-06-22 18:18 | NUR ---
THIS RN IN PTS ROOM AND WAS ABLE TO EMPTY HEMAVAC FOR 30ML. PT TOLERATED WELL AND ONLY ASKED FOR ANOTHER PILLOW SO HE CAN CONTINUE TO BE COMFORTABLE ON HIS RIGHT SIDE. PILLOW STILL IN PLACE INBETEWEEN LEGS AT THIS TIME.
--- NOTE | 2021-06-22 19:10 | NUR ---
SHIFT REPORT RECEIVED FROM DAYSHIFT TINO KEARNEY. pt RESTING IN BED FACING WINDOW. RR EVEN AND UNLABORED. NO DISTRESS NOTED, CALL LIGHT IN REACH.
--- NOTE | 2021-06-22 21:00 | NUR ---
ASSESSMENT COMPLETE, SCHEDULED MEDS GIVEN (SEE EMAR). pt AWAKE AND RESTING IN BED, PLEASANT AND INTERACTIVE WITH COMMUNICATIONS TOWER TECHNICIAN. REPORTS 6/10 PAIN, PRN NORCO ALSO GIVEN. pt REFUSES LONG ACTING INSULIN, EDUCATION PROVIDED, pt CONTINUES TO REFUSE. ALSO REFUSES TO TAKE PARTIAL DOSE. ACCUCHECK RESULT OF 200, AGREES TO TAKE ORDERED INSULIN LISPRO SS, 4UNITS GIVEN. CATH CARE DONE, SCROTUM EXCORIATED AND RED, ERASMO CARE DONE. DESENEX POWDER APPLIED TO GROIN, PILLOW CASES TO GROIN FOLDS TO ASSIST IN KEEPING AREA DRY. WILLIS PATENT AND WNL. pt REPOSITIONED UNTO BACK. HEEL PROTECTORS IN PLACE. BLANKET PROVIDED. FRESH WATER AT BEDSIDE. PICC DRESSING C/D/I, BRISK BLOOD RETURN NOTED. PICC LINE TKO FOR SCHEDULED 2200 IV ABX. NO FURTHER NEEDS, CALL LIGHT IN REACH.
--- NOTE | 2021-06-22 22:35 | NUR ---
IV ABX INFUSING DIRECTED VIA PICC LINE, BRISK BLOOD RETURN NOTED. [place]AD[place] BOX PROVIDED, NO FURTHER NEEDS, CALL LIGHT IN REACH. NO FURTHER NEEDS, CALL LIGHT IN REACH.
--- NOTE | 2021-06-23 00:11 | NUR ---
CALL LIGHT ANSWERED. PATIENT WANTING TO REPOSITIONED ON TO HIS RIGHT SIDE. NO OTHER NEEDS AT THIS TIME.
--- NOTE | 2021-06-23 00:23 | NUR ---
pt RECENTLY REPOSITIONED BY JOSUE TRIPLETT, pt AWAKE AND RESTING IN BED. DENIES NEEDS OR CONCERNS. CALL LIGHT IN REACH.
--- NOTE | 2021-06-23 02:08 | NUR ---
ROUNDED ON pt, pt RESTING IN BED. DENIES NEEDS OR CONCERNS. IV ABX CONTINUES TO INFUSE DIRECTED, PICC LINE REMAINS WNL. CALL LIGHT IN REACH.
--- NOTE | 2021-06-23 02:33 | NUR ---
[facility] FROM [facility] CALLED AND ASKED FOR UPDATE. UPDATE PROVIDED.
--- NOTE | 2021-06-23 03:54 | NUR ---
IV ABX COMPLETE, PICC LINE WNL. BRISK BLOOD RETURN NOTED. PICC LINE HEP LOCKED PER POLICY. ASSESSMENT COMPLETE, NO ACUTE CHANGES. PILLOW CASES REMAIN TO GROIN FOLDS, WILLIS PATENT. pt ASSISTED WITH REPOSITIONING BLE, LAYING ON HIS RIGHT SIDE. BILAT HEEL PROTECTORS IN PLACE. NO FURTHER NEEDS, CALL LIGHT IN REACH.
--- NOTE | 2021-06-23 06:16 | NUR ---
ASSISTED PRIMARY RN CARLEEN. V/S AND I&O'S DONE. WILLIS CARE DONE. EMPTIED WILLIS AND HEMOVAC. PICKED UP GARBAGE. PATIENT REPOSITIONED. RN STILL WITH PATIENT.
--- NOTE | 2021-06-23 06:24 | NUR ---
scheduled iv abx infusing via picc line wnl, brisk blood return noted. pt repositoned unto back, romie/cath care done by stephanie cross, some yellow discharge/drainage noted around meatus tip. groin area appears a little more attendant arcade in color compared to start of shift after desenex powder, site witnessed by charger becky. will continue to monitor. no further needs, call light in reach.
--- NOTE | 2021-06-23 07:10 | NUR ---
Report received from Yvette JIMÉNEZ. Pt resting in bed, eyes closed, IV ABX infusing. No needs identified at this time, will continue plan of care.
--- NOTE | 2021-06-23 07:36 | NUR ---
Faxed orders, RX to [facility] and [facility]. Texted and let her know I will schedule [facility] for transport if I can contact. I was not able to reach them last week as they were closed due to illness. May have to contact the daughter for transport.
--- NOTE | 2021-06-23 08:45 | NUR ---
PT ASLEEP IN BED. PT WOKE UP, BLOOD SUGAR CHECKED. WHITE BOARD UDPATED. BREAKFAST GIVEN. NO FURTHER NEEDS AT THIS TIME
--- NOTE | 2021-06-23 09:30 | NUR ---
Scheduled medications administered, assessment complete. pt resting in bed after breakfast. States no pain or needs. Hemovac examined, nothing to drain at this time. VSS, I/Os complete, vazquez care complete. Pt a+o, on room air. SS insulin provided. Call light in reach.
--- NOTE | 2021-06-23 09:45 | NUR ---
No change, awaiting transfer to [facility].
--- NOTE | 2021-06-23 14:05 | NUR ---
IV ABX infusing. VSS, A+O. I/Os complete. vazquez care done. Pt repositioned in bed. Medicated for 6/10 back/hip pain with 2 tabs norco. No other needs
--- NOTE | 2021-06-23 14:30 | NUR ---
BOTH NARES SWABBED FOR COVID-19 WITHOUT COMPLICATION, SAMPLE TAKEN TO LAB.
--- NOTE | 2021-06-23 17:18 | NUR ---
SS insulin provided per order, dinner in room. Pt in good spirits, has no needs
--- NOTE | 2021-06-23 18:22 | NUR ---
PATIENT IN BED RESTING WITH EYES CLOSED. VITALS AND I&O'S CHARTED. CALL LIGHT IN REACH. NO FURTHER NEEDS AT THIS TIME.
--- NOTE | 2021-06-23 19:15 | NUR ---
RECEIVED REPORT FROM DAY SHIFT RN. PATIENT IS RESTING IN BED. PATIENT DENIES ANY NEEDS. CALL LIGHT IN REACH.
--- NOTE | 2021-06-23 20:09 | NUR ---
PT CALLED, REQUESTED TO BE ASSISTED IN REPOSITIONING. PT COMMUNICATED HIS NEEDS, DRAW SHEET STRAIGHTENED OUT PER HIS COMFORT, PILLOW BETWEEN LEGS, COVERED HIS HEAD SAID HE WAS COMFORTABLE. NO OTHER NEEDS AT THIS TIME.
--- NOTE | 2021-06-23 21:05 | NUR ---
[facility] CALLED, UPDATED ON pt. NO UPDATE FROM TRANSFER CENTER REGARDING BEDS AT THIS TIME.
--- NOTE | 2021-06-23 21:10 | NUR ---
PATIENT ASSESMENT COMPLETED. SCHEDULED MEDICATION GIVEN PER ORDER. PATIENT GIVEN PRN PAIN MEDICATION PER PATIENT REQUEST FOR 6/10 PAIN IN HIS BACK. PATIENT ASSISTED TO REPOSITION. PATIENTS IV INFUSING ABX PER ORDER. PATIENTS SCROTUM CLEANED, POWDER APPLIED, AND ELEVATED ON PILLOW CASES. PATIENTS VITALS TAKEN AND RECORDED. WILLIS EMPTIED AND WILLIS CARED COMPLETED. OSTOMY APPLIANCE CHANGED. INTAKE AND OUTPUT RECORDED. PATIENTS HEMOVAC DOES NOT NEED DRAINED AT THIS TIME. PATIENTS DRESSING ON HIS LEFT HIP IS C/D/I AND OLD SHADOWING NOTED. ARUNA IS DOMINICING SOLITARIO MD AWARE PER SHIFT REPORT. PATIENT PROVIDED WITH SNACK. PATIENT REFUSED LONG ACTING INSULIN. EDUCATED PATIENT ON IMPORTANCE. PATIENT VERBALIZES UNDERSTANDING AND CONTINUES TO REFUSE. PATIENT DENIES ANY FURTHER NEEDS. CALL LIGHT IN REACH.
--- NOTE | 2021-06-23 23:37 | NUR ---
PATIENT ASSISTED TO REPOSITION. PATIENT RATES PAIN AT A 2/10 AND DENIES THE NEED FOR PAIN MEDICATION AT THIS TIME. NO FURTHER NEEDS NOTED. CALL LIGHT IN REACH.
--- NOTE | 2021-06-24 00:24 | NUR ---
IX ABX COMPLETED INFUSING. PATIENT IS NOW HEPLOCKED PER ORDER. NO NEEDS NOTED. CALL LIGHT IN REACH.
--- NOTE | 2021-06-24 01:34 | NUR ---
PATIENT IS RESTING IN BED WITH EYE S CLOSED, RR 18. CALL LIGHT IN REACH.
--- NOTE | 2021-06-24 02:51 | NUR ---
PATIENT IS RESTING IN BED WITH EYES CLOSED, RR 17. CALL LIGHT IN REACH.
--- NOTE | 2021-06-24 04:27 | NUR ---
PATIENT IS RESTING IN BED WITH EYES CLOSED, RR 15. CALL LIGHT IN REACH.
--- NOTE | 2021-06-24 06:03 | NUR ---
COFFEE WITH 2 CREAMS PROVIDED.
--- NOTE | 2021-06-24 06:12 | NUR ---
PATIENT REPOSITIONED IN BED. VITALS TAKEN AND RECORDED. WILLIS EMPTIED AND WILLIS CARE COMPLETED. HEMOVAC EMPTIED. ARUNA DRESSING C/D/I, NO NEW DRAINAGE NOTED, BLINKING ORANGE. PATIENT RATES PAIN AT A 6/10, PRN PAIN MEDICATION GIVEN PER ORDER. INTAKE AND OUTPUT RECORDED. PICC LINE DRESSING CHANGED. IV ABX INFUSING PER ORDER. PATIENT TOLERATED ALL ACITIVTY WELL. PATIENTS OSTOMY HAS NO DRAINAGE IN IT AT THIS TIME. FRESH ICE WATER PROVIDED. NO FURTHER NEEDS NOTED. CALL LIGHT IN REACH.
--- NOTE | 2021-06-24 08:20 | NUR ---
THIS RN IN PTS ROOM TO GIVE PT MORNING MEDS. PT SITTING UP AND JUST FINISHING BREAKFAST THIS AM. PT HAS NO COMPLIANTS THIS AM. [facility] IN ROOM TO EDUCATE PT ABOUT HIS MORNING MEDS. CALL LIGHT WITHIN REACH.
--- NOTE | 2021-06-24 10:30 | NUR ---
THIS RN IN PTS ROOM [facility]. PT COMPLIANT WITH CARE AND PLEASANTLY ACCEPTING OF NURSING STUDENTS IN ROOM TODAY. PICC LINE FLUSHED AND DRAWS BACK BLOOD WELL THIS AM. HEP LOCKED WITH ORANGE CAP IN PLACE PT DENIES PAIN AT THIS TIME. CALL LIGHT WITHIN REACH AND BIBLE PROVIDED TO PT.
--- NOTE | 2021-06-24 11:48 | NUR ---
Spoke with Pedrito. Now off isolation. Awaiting transfer to [facility]. States Julieth from the office let him know he may be able to dc to [facility]. He does not want to do so. He would like to wait for transfer as if infection worsens, he does not want to start the process of transfer over again.
--- NOTE | 2021-06-24 12:30 | NUR ---
THIS RN IN PTS ROOM TO GIVE INSULIN. PT DENIES NEED FOR PAIN MEDS AT THIS TIME. PT SITTING UP IN BED AND CALL LIGHT WITHIN REACH
--- NOTE | 2021-06-24 13:36 | NUR ---
PT ALERT, ORIENTED AND FINISHING UP MEAL. PT STATED HE FEELS HE IS STARTING TO COME OUT THE OTHER SIDE SO TO SPEAK. FEELING BETTER, AWAITING TRANSFER TO [facility] PT SHARE WITH ME THE DIFFICULTY HE HAS ENCOUNTERED THIS PAST YEAR. FIRST, WITH BROKEN LEG, THEN LOSING HIS SON TO COVID AND NOW DEALING WITH THIS BOUT WITH COVID AND ON-GOING NEED FOR HIS LEG. PT WORKING TO BE POSITIVE. GAVE G.POST. GRIEF BOOK AND TINO KEARNEY IN FOR MEDS. WILL FOLLOW NEEDED
--- NOTE | 2021-06-24 14:30 | NUR ---
THIS RN IN PTS ROOM TO GIVE PT HIS ANTIBIOTIC. PT REQUESTING A GRANOLA BAR. THIS RN PROVIDED THIS TO PT DESPITE CARB COUNT BEING 18GM. WHEN THIS RN BACK IN PTS ROOM PT WAS EATING DOVE CHOCOLATE SQUARES. THIS RN EDUCATED PT ABOUT HOW HIGH HIS BLOOD SUGARS WILL GET. PT STATES THAT HE WILL ONLY TAKE THE INSULIN THAT HE WANTS. CALL LIGHT WITHIN REACH. PTS DAUGHTER VISITING AT THIS TIME
--- NOTE | 2021-06-24 18:49 | NUR ---
this rn in pts room to vitals and i&o's. pt states that he is doing well just having issues with his methods engineer for his phone. this rn attempted to help but doesn't know much about charging base. pt denies pain at this time.
--- NOTE | 2021-06-24 19:19 | NUR ---
IN ROOM FOR REPORT, PT IS AWAKE IN BED. HE DENIES NEEDS AT THIS TIME. CALL LIGHT IS CLOSE.
--- NOTE | 2021-06-24 20:20 | NUR ---
PT CALLED IV ALARMING. SL, AND PT REQUESTED TO BE REPOSITIONED PER COMFORT.
--- NOTE | 2021-06-24 21:40 | NUR ---
IN ROOM TO ASSESS PT AND ADMINISTER MEDICATIONS. PT REFUSED THE SEMGLEE INSULIN BUT TOOK THE HUMALOG 4 UNITS FOR BS OF 212. PT ALSO REFUSED M.O.M., TYLENOL, AND ULTRAM. PT REPORTS PAIN IN BACK AT 6/10, ADMINISTERED 2 NORCO PER ORDERS. PT WOULD LIKE TO SLEEP AT THIS TIME AND DOES NOT WANT PERICARE OR HEMOVAC EMPTIED AT THIS TIME. PT STATES HE WAS JUST ASSISTED TO TURN ON HIS R SIDE AND DOES NOT WANT TO BE ASSISTED TO MOVE FOR ABOUT 3 HOURS. WILL RETURN LATER TO TURN. PT DENIES FURTHER NEEDS AT THIS TIME. CALL LIGHT IS CLOSE.
--- NOTE | 2021-06-24 21:52 | NUR ---
MICHAEL DAVIES CALLED FOR UPDATE. GIVEN.
--- NOTE | 2021-06-25 00:18 | NUR ---
ASSISTED PATIENT TO REPOSITION. PATIENT TOLERATED ACTIVITY WELL. PATIENT DENIES ANY FURTHER NEEDS. CALL LIGHT IN REACH.
--- NOTE | 2021-06-25 02:00 | NUR ---
IN ROOM TO HEPLOCK IV, PT DENIES NEEDS. PT DENIES NEED TO BE REPOSITIONED AT THIS TIME AND STATES HE WILL CALL WHEN HE IS READY. CALL LIGHT IS CLOSE.
--- NOTE | 2021-06-25 03:15 | NUR ---
PT IS RESTING WITH EYES CLOSED, RR IS EVEN AND UNLABORED. CALL LIGHT IS CLOSE.
--- NOTE | 2021-06-25 05:52 | NUR ---
V/S AND I&O'S DONE. EMPTIED WILLIS AND HEMOVAC. WILLIS CARE DONE. CHANGED OSTOMY BAG DONE BY PATIENT. ERASMO CARE DONE. CHANGED BED LINEN. COFFEE PROVIDED.
--- NOTE | 2021-06-25 06:24 | NUR ---
IN ROOM TO ADMINISTER ZOSYN. PT DENIES NEED FOR TYLENOL AND ULTRAM. HE REPORTS A LITTLE BIT OF A HEADACHE BUT DENIES ANYTHING FOR IT. CLEANED UP PERIAREA/SCROTUM DESENEX APPLIED. SKIN IS VERY EXCORIATED ON SCROTUM AND R SIDE PANUS AREA. BED CHANGE DONE PT SWEAT ALOT DURING THE NIGHT. PT REPOSITIONED TO BACK AT THIS TIME, BREAKFAST ORDER PLACED AND PT DENIES FURTHER NEEDS. CALL LIGHT IS CLOSE.
--- NOTE | 2021-06-25 07:30 | NUR ---
this rn received report from malgorzata juares. pt appears to be resting this am with respirations noted.
--- NOTE | 2021-06-25 07:50 | NUR ---
THIS RN IN PTS ROOM DUE TO PT SETTING OFF BED ALARM. PT HAD REPMOVED COBAN DRESSING AND PULLED IV OUT. PT BECOMING AGITATED STATING THAT HE NEEDS TO GET UP TO POOP. THIS RN DISUCSSED WITH PT THAT HE ISN'T STRONG ENOUGH TO GET UP, PT WAS ALREADY INCONTINENT. THIS RN CHANGED PTS INCONTINENCE. PT STATES THAT HIS TESTICLES ARE SORE WHEN WIED. THIS RN DID A CIWA ON PT- 10. THIS RN GAVE 5MG OF VALIUM. PT ABLE TO TAKE MEDS WITH APPLESAUCE WITH NO COUGHING. BED ALARM ON
--- NOTE | 2021-06-25 08:15 | NUR ---
THIS RN IN PTS ROOM TO GIVE PT MORNING INSULIN. PT SITTING UP IN BED AND TALKING KELI SCHOFIELD. PT NEEDS NOTHING FURTHER AT THIS TIME.
--- NOTE | 2021-06-25 08:20 | NUR ---
THIS RN BACK IN PTS ROOM TO FINISH PTS MORNIGN MEDS. PT STILL DOES WELL WITH SWALLOWING BUT NEEDS QUEING. THIS RN GOT AN ORDER FOR A WILLIS CATH. PLACED. PALE YELLOW URIN RETURNED. STRILE TECHNIQUE PREFORMED. A FEW SMALL BLOOD CLOTS NOTED. THIS RN DID NOTE SMALL AMOUNT OF BLOOD AT THE MEATUS OF THE PENIS WHEN PLACING THE WILLIS AND IN PTS DEPENDS. NO NOTED PAIN WHEN PLACING CATH. BED ALRAM ON
--- NOTE | 2021-06-25 09:30 | NUR ---
THIS RN IN PTS ROOM TO GIVE PT THE REST OF HIS MORNING MEDS. PT SITTING UP IN BED. THIS RN DISCUSSED WITH PT THE PLAN OF THE DAY. PT STATES THAT THE PLAN OF THE DAY WORKS WELL FOR HIM.
--- NOTE | 2021-06-25 10:00 | NUR ---
PT APPEARS TO BE RESTING AT THIS TIME. BED ALARM ON
--- NOTE | 2021-06-25 11:10 | NUR ---
THIS RN TO CHECK ON PT. PT APPEARS FOR AWAKE NOW. PT ASKING WHERE HIS BROTHER WAS. THIS RN DISCUSSED WITH PT THAT PT HAS COVID AND HIS BROTHER CANT COME IN. PT ONLY ORIENTED TO SELF
--- NOTE | 2021-06-25 12:30 | NUR ---
THIS RN IN PTS ROOM TO GIVE PT HIS INSULIN. PT ON PHONE AND STATES THAT HE WILL NEED A PAIN PILL SOONER RATHER THAN LATER. PIA JIMÉNEZ TO GIVE PT MEDS
--- NOTE | 2021-06-25 14:07 | NUR ---
PT APPEARS TO BE SLEEPING-COVERS OVER EYES AND FOREHEAD. DID NOT DISTURB. WILL CHECK AGAIN
--- NOTE | 2021-06-25 14:15 | NUR ---
No change in plan for transfer.
--- NOTE | 2021-06-25 14:17 | NUR ---
PT NAPPING. CALL LIGHT WITHIN REACH, NO FURTHER NEEDS.
--- NOTE | 2021-06-25 16:00 | NUR ---
THIS RN IN PTS ROOM ABLE TO CHANGE PTS WILLIS FROM AN 18 STATELESS WILLIS TO A 20 STATELESS WILLIS. THIS RN PER VERBAL ORDER FROM FABRICIO SCHOFIELD, THIS RN CHANGED PTS DRESSING FROM A ARUNA TO ACTICOAT. PT TOELRATED WELL AND PT STATES THAT HE NEEDS NOTHING FURTHER AT THIS TIME.
--- NOTE | 2021-06-25 17:20 | NUR ---
[facility] CONFIRMED BED, CALLED DIOMEDES CONWAY FOR ORDER TO SIGN TRANSFER PAPERS AND SEND VIA BLS, SHE SAID YES, SHE ALSO ASKED THAT ONCE ON THE GURNEY THAT NEW V/S ARE TAKEN AND NO NEUROGENIC SYMPTOMS FLARE. PRIMARY RN CAIO NOTIFIED
--- NOTE | 2021-06-25 19:09 | NUR ---
THIS RN CALLED REPORT TO SAIRA JIMÉNEZ AT [facility]. ALL QUESTIONS ANSWERED TO THE BEST OF THIS RNS ABILITY
== END 2021-06-25 18:45 | disposition short-term general hospital (02) | DRG 498 ==
LOC: ED 08:50 → MS 16:31
PROVIDERS: ADMIT Specialist; ATTEND Specialist
PROC: 8E0ZXY6 Isolation (ICD-10-PCS; 2021-06-16)
PROC: 0QB70ZZ Excision of Left Upper Femur, Open Approach (ICD-10-PCS; principal; 2021-06-16 17:03)
DX: T84.621A Infection and inflammatory reaction due to internal fixation device of left femur, initial encounter (principal); L89.154 Pressure ulcer of sacral region, stage 4; U07.1 COVID-19; L02.31 Cutaneous abscess of buttock; G82.20 Paraplegia, unspecified; N39.0 Urinary tract infection, site not specified; L03.116 Cellulitis of left lower limb; L03.115 Cellulitis of right lower limb; T88.3XXA Malignant hyperthermia due to anesthesia, initial encounter; M71.052 Abscess of bursa, left hip; E11.9 Type 2 diabetes mellitus without complications; E11.621 Type 2 diabetes mellitus with foot ulcer; E11.40 Type 2 diabetes mellitus with diabetic neuropathy, unspecified; E83.42 Hypomagnesemia; E83.39 Other disorders of phosphorus metabolism; L89.310 Pressure ulcer of right buttock, unstageable; E66.01 Morbid (severe) obesity due to excess calories; Z68.39 Body mass index [BMI] 39.0-39.9, adult; Z93.3 Colostomy status; N31.9 Neuromuscular dysfunction of bladder, unspecified; E11.65 Type 2 diabetes mellitus with hyperglycemia; I48.91 Unspecified atrial fibrillation; Z88.1 Allergy status to other antibiotic agents; Z88.8 Allergy status to other drugs, medicaments and biological substances
CPT/HCPCS: 00300; 36569; 71045; 73700; 74177; 80048; 80053; 80202; 81001; 82565; 83036; 84520; 85025; 86140; 87070; 87075; 87205; 99285-25; A9270; C1751; C9803; J1170; J1815; J2001; J2250; J2543; J2704; J3370; J7030; J7060; J7121; Q9967; U0003

== ENCOUNTER 2022-02-02 09:38 | Inpatient (IN) | payer MEDICARE, OTHER ==
[~2022-02-02] VITALS: Ht 182.9 cm; Wt 132.0 kg
[~2022-02-02 09:38] MED LIST changes: +BASAGLAR K100 UNIT/1 SQ; +ONDANSETRON ODT4 MG PO
[2022-02-02] MEDS ORDERED: ASPIRIN81 MG PO (11:42)
[2022-02-02] MEDS ORDERED: INSULIN AS100 UNIT/3 SUB-Q (11:42)
[2022-02-02] MEDS ORDERED: ATORVASTATIN CA80 MG PO (11:44)
[2022-02-02] MEDS ORDERED: LISINOPRIL40 MG PO (11:46)
[2022-02-03] MEDS ORDERED: CELEBREX200 MG PO (14:53)
[2022-02-03] MEDS ORDERED: VITAMIN D31250 MC1 PO (14:54)
[2022-02-03] MEDS ORDERED: PEPCID40 MG PO (14:55)
[2022-02-03] MEDS ORDERED: MAALOX ADVANCE355 ML PO (14:57)
[2022-02-03] MEDS ORDERED: DULCOLAX10 MG PR (14:58)
[2022-02-03] MEDS ORDERED: ADVIL200 M1 PO (14:59)
[2022-02-03] MEDS ORDERED: MILK OF MA400 MG/5 M PO (15:00)
[2022-02-03] MEDS ORDERED: HYDROCODON-ACE1 EA10 PO (15:01)
[2022-02-03] MEDS ORDERED: NITROSTAT0.4 MG SL (15:01)
[2022-02-03] MEDS ORDERED: OXYCODONE HCL5 MG PO (15:02)
[2022-02-03] MEDS ORDERED: PEPTO-BISM262 MG/15 PO (15:03)
[2022-02-03] MEDS ORDERED: TYLENOL EXTRA500 MG PO (15:04)
[2022-02-03] MEDS ORDERED: SENNA-S TABLET1 EACH PO (15:04)
[2022-02-03] MEDS ORDERED: ONDANSETRON ODT4 MG PO (15:05)
[2022-02-07] MEDS ORDERED: LEVOFLOXACIN750 MG PO (10:21)
[2022-02-07] MEDS ORDERED: BACTRIM DS TAB1 EACH PO (10:23)
--- NOTE | 2022-02-07 15:34 | EKG ---
[facility] [address] [facility] [place] [address] Signed Normal sinus rhythm ST depression, consider subendocardial injury Abnormal ECG When compared with ECG of 12-MAY-2021 22:19, No significant change was found Confirmed by VINCENT ROMAN MD ([id number]) on 02/07/2022 3:34:16 PM Electronically Signed By: VINCENT ROMAN MD 02/07/22 1534 PATIENT NAME: HERMINIO JON Electrocardiogram DATE OF : 55 PHYSICIAN: VINCENT ROMAN MD REPORT #: [id number] REPORT IS CONFIDENTIAL AND NOT TO BE RELEASED WITHOUT AUTHORIZATION
== END 2022-02-07 13:05 | disposition home or self-care (01) | DRG 698 ==
LOC: ED 09:38 → CCU 12:09
PROVIDERS: ADMIT Internal Medicine; ATTEND Family Medicine
DX: T83.510A Infection and inflammatory reaction due to cystostomy catheter, initial encounter (principal); A41.51 Sepsis due to Escherichia coli [E. coli]; J18.9 Pneumonia, unspecified organism; G82.20 Paraplegia, unspecified; Z20.822 Contact with and (suspected) exposure to COVID-19; N30.90 Cystitis, unspecified without hematuria; I10 Essential (primary) hypertension; E78.5 Hyperlipidemia, unspecified; E83.42 Hypomagnesemia; E11.40 Type 2 diabetes mellitus with diabetic neuropathy, unspecified; Z96.643 Presence of artificial hip joint, bilateral; Z89.512 Acquired absence of left leg below knee; Z90.49 Acquired absence of other specified parts of digestive tract; Z98.890 Other specified postprocedural states; Z88.1 Allergy status to other antibiotic agents; Z88.8 Allergy status to other drugs, medicaments and biological substances; Z79.4 Long term (current) use of insulin; Z79.82 Long term (current) use of aspirin; Z79.899 Other long term (current) drug therapy; Y84.6 Urinary catheterization as the cause of abnormal reaction of the patient, or of later complication, without mention of misadventure at the time of the procedure
CPT/HCPCS: 36415; 71045; 74177; 80053; 80202; 81001; 83036; 83605; 83735; 85025; 85610; 85730; 87040; 87070; 87075; 87077; 87088; 87186; 87205; 87502; 93005; 93010; 96374; 96375; 99285-25; A9270; C9803; J0131; J0692; J0780; J1650; J1815; J1885; J2405; J3370; J3475; J7030; J7060; J7121; Q9967; U0003

== ENCOUNTER 2022-03-23 10:39 | Emergency (ER) | payer MEDICARE, OTHER ==
[~2022-03-23] VITALS: Ht 182.9 cm; Wt 132.1 kg
[~2022-03-23 10:39] MED LIST changes: +ADVIL200 M1 PO; +ASPIRIN81 MG PO; +ATORVASTATIN CA80 MG PO; +DOXYCYCLINE HY100 MG PO; +DULCOLAX10 MG PR; +HYDROCODON-ACE1 EA10 PO; +INSULIN AS100 UNIT/3 SUB-Q; +LEVOFLOXACIN750 MG PO; +MAALOX ADVANCE355 ML PO; +MILK OF MA400 MG/5 M PO; +NITROSTAT0.4 MG SL; +OXYCODONE HCL5 MG PO; +PEPCID40 MG PO; +PEPTO-BISM262 MG/15 PO; +SENNA-S TABLET1 EACH PO; +TYLENOL EXTRA500 MG PO; +VITAMIN D31250 MC1 PO
== END 2022-03-23 15:17 | disposition home or self-care (01) ==
LOC: ED 10:39
DX: N13.2 Hydronephrosis with renal and ureteral calculous obstruction (principal); T83.022A Displacement of nephrostomy catheter, initial encounter; E11.9 Type 2 diabetes mellitus without complications; I10 Essential (primary) hypertension; Z88.1 Allergy status to other antibiotic agents; Z88.4 Allergy status to anesthetic agent; Z79.82 Long term (current) use of aspirin; Z79.4 Long term (current) use of insulin; Z79.899 Other long term (current) drug therapy; X58.XXXA Exposure to other specified factors, initial encounter
CPT/HCPCS: 36415; 74176; 80053; 85025; 99284-25

== ENCOUNTER 2022-04-03 11:34 | Emergency (ER) | payer MEDICARE, OTHER ==
[~2022-04-03] VITALS: Ht 182.9 cm; Wt 132.1 kg
== END 2022-04-03 16:17 | disposition short-term general hospital (02) ==
LOC: ED 11:34
DX: T83.022A Displacement of nephrostomy catheter, initial encounter (principal); Z20.822 Contact with and (suspected) exposure to COVID-19; I10 Essential (primary) hypertension; E11.42 Type 2 diabetes mellitus with diabetic polyneuropathy; Z88.1 Allergy status to other antibiotic agents; Z88.8 Allergy status to other drugs, medicaments and biological substances; Z79.4 Long term (current) use of insulin; Z79.82 Long term (current) use of aspirin; Z79.899 Other long term (current) drug therapy
CPT/HCPCS: 80048; 85025; 99284; C9803; U0003

== ENCOUNTER 2022-04-17 10:36 | Inpatient (IN) | payer MEDICARE, OTHER ==
[~2022-04-17] VITALS: Ht 182.9 cm; Wt 122.3 kg
[2022-04-17] MEDS ORDERED: CARVEDILOL25 MG PO (11:10)
[2022-04-17] MEDS ORDERED: CLOPIDOGREL75 MG PO (11:10)
[2022-04-17] MEDS ORDERED: LOSARTAN POTASS50 MG PO (11:10)
[2022-04-17] MEDS ORDERED: CEFDINIR300 MG PO (11:11)
[2022-04-17] MEDS ORDERED: OZEMPIC0.25 MG/0. SUB-Q (11:12)
--- NOTE | 2022-04-17 20:45 | NUR ---
PT ARRIVES TO FLOOR VIA STRETCHER. PT PULLED OVER TO BED BY STAFF. PT TOLERATED WELL. PT'S PANTS REMOVED AND PLACED IN BELONGINGS BAG. ADMISSION PROCESS COMPLETE. PT DENIES QUESTIONS OR CONCERNS. PT EDUCATION PROVIDED REGARDING CALL LIGHT USE FOR SAFETY, POC FOR THIS SHIFT. PT STATES UNDERSTANDING. WARM BLANKET PROVIDED. PERSONAL ITEMS AND CALL LIGHT LEFT WITHIN REACH.
--- NOTE | 2022-04-17 22:10 | NUR ---
2044 - admitted to room 109
--- NOTE | 2022-04-17 22:10 | NUR ---
on room air, lung dim at bases, large abd, anna, tender, l nephrostomy tube with gauze/clear opsite with redness at indertion site. ostomy L side pat draina self, draining brown colored bm. suprapubic f/c patent draining medium yellow urine, chronic. slight redness at insertion site. red penile area. Faint rash R side, denies known cause. light redness back, did not assess buttocks yet at thist miguel. will do it later, WILL. SL RW patent. pleasnt, alert and oriented, did own accucheck , received 5 untis ss insulin and garglyne Y insulin. all meds given explained to his satisfaction. vancomycin and cefepime started at thist miguel.
--- NOTE | 2022-04-17 22:15 | NUR ---
RN ASSISTED WITH VITALS. 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
--- NOTE | 2022-04-17 22:17 | NUR ---
DR CHILDERS NOTIFIED
--- NOTE | 2022-04-17 22:21 | NUR ---
PLACED CALL TO MD FOR PRIMARY RN. PATIENTS BP BELOW PARAMETERS. MANUAL BP TAKEN ALSO. MD NOTIFIED OF BP. PATIENT REPORTS BEING DIXXY, LIGHTHEADED, AND CHEST HEAVYNES. MD GAVE VERBAL ORDER VERIFIED ORDER USING THE REPEATBACK METHOD.
--- NOTE | 2022-04-17 22:24 | NUR ---
IVF BOLUS STARTED
--- NOTE | 2022-04-17 22:25 | NUR ---
PT ALERT AND ORIENTED, STATES HE FEELS BETTER
--- NOTE | 2022-04-17 22:42 | NUR ---
IVF BOLUS COMPLETED
--- NOTE | 2022-04-17 22:44 | NUR ---
PT AWAKE, ALERT AND ORIENTED, DENEIS CHEST PRESSURE OR FEELING NAUSEATED. "I FEEL BETTER"
--- NOTE | 2022-04-17 22:54 | NUR ---
DR CHILDERS NOTIFIED BY JOSEPH JIMÉNEZ, SEE HER NOTES FOR NEWE ORDERS, IVF INCREASED TO 125 AT THIST ISRA, VANCOMYCIN INFUSING, NO FURTHER C/O CHEST PAIN OR FEELING LIGHTHEADNED. CEFEPINE INFUSING TOO. ALERT AND ORIENTED, TALKING, . PT INFORMED OF TRANSFERRING TO ICU, STATED UNDERSTANDING
--- NOTE | 2022-04-17 22:55 | NUR ---
PLACED CALL AND UPDATED MD. NEW ORDERS RECEIVED AND VERIFIED USING THE READBACK METHOD. UPDATED PRIMARY RN, MANUFACTURING TEACHER AND YARDING AND FOLDING MACHINE OPERATOR
--- NOTE | 2022-04-17 23:10 | NUR ---
pt transferred to icu room 129, pt alert and oriented
--- NOTE | 2022-04-17 23:18 | NUR ---
PT TRANSFERRED TO UNIT FROM [facility]. PT IS A/O, RESPIRATIONS EVEN AND REGULAR. IV FLUIDS RUNNING AT 125/HR. RECEIVED BEDSIDE REPORT FROM MS NURSE.
--- NOTE | 2022-04-18 01:00 | NUR ---
ROUNDED ON PT. PT APPEARS TO BE SLEEPING COMFORTABLY. IV FLUIDS RUNNING. RESPIRATIONS EVEN AND REGULAR. CALL LIGHT WITHIN REACH.
--- NOTE | 2022-04-18 03:17 | NUR ---
PT REPOSITIONED TO LEFT SIDE. PT IS A/O, RESPIRATIONS EVEN AND REGULAR. IV FLUIDS RUNNING AT 125ML/HR. U/O 30ML OVER THE LAST HOUR. CALL LIGHT WITHIN REACH.
--- NOTE | 2022-04-18 05:46 | NUR ---
NOTIFIED OF PT HRLY URINE OUTPUT. NO NEW ORDERS ATT.
--- NOTE | 2022-04-18 07:30 | NUR ---
REPORT RECIEVED. PATIENT REPOSITIONED IN BED.
--- NOTE | 2022-04-18 09:00 | NUR ---
DR. CHILDERS HERE TO SEE PATIENT. DRESSING TO LEFT NEPHROSTOMY TUBE REDRESSED. NO DRAINAGE NOTED ON DRESSING. URINE IN NEPHROSTOMY IS LIGHT YELLOW IN COLOR.
--- NOTE | 2022-04-18 11:00 | NUR ---
TYLENOL 1000 MG PO GIVEN FOR BACK PAIN.
--- NOTE | 2022-04-18 11:35 | NUR ---
RESTING, IN CHANGES. IVF AND IV ABX INFUSING. DENIES PROBLEMS.
--- NOTE | 2022-04-18 12:00 | NUR ---
ASSESSMENT DONE. ACCUCHECK 226, 3 UNITS INSULIN GIVEN. STATES PAIN IS LESS AFTER RECIEVING TYLENOL. SP CATH/NEPHROSTOMY TUBE PATENT WITH CLEAR YELLOW URINE NOTED IN EACH BAG. OSTOMY BAG INTACT.
--- NOTE | 2022-04-18 15:11 | NUR ---
MED REC COMPLETE
--- NOTE | 2022-04-18 15:21 | NUR ---
RATES OVERALL PAIN 6/10. REFUSING TORDOL. OXYCODONE 5 MG PO GIVEN.
--- NOTE | 2022-04-18 16:15 | NUR ---
RIGHT SIDE OF GOWN WET WITH URINE. LEFT NEPHROSTOMY TUBE SITE DRESSING IS DRY AND INTACT. SKIN AT SP CATH INSERTION SITE IS WET, SMALL AMOUNT OF URINE IS LEAKING AT THIS SITE. SP CATH ASPIRATED FREELY FOR 50 ML URINE WITH FINE SEDIMENT NOTED, AFTER ASPIRATION OF URINE, SP CATH DRAINED 570 ML OF URINE. AFTER DRAINING URINE, PATIENT STATES HIS LOWER ABD FEEL LESS PAINFUL. ASSESSMENT DONE.
--- NOTE | 2022-04-18 16:40 | NUR ---
ACCUCHECK 249, 5 UNITS INSULIN GIVEN.
--- NOTE | 2022-04-18 17:30 | NUR ---
TOOK DINNER WELL. HAS BEEN ON HIS CELL PHONE MOST OF THE DAY.
--- NOTE | 2022-04-18 20:05 | NUR ---
PT ASSESSMENT COMPLETED. IV ABX RUNNING. PT IS A/O. SUPRAPUBIC CATHETER AND NEPHROSTOMY DRAINING WELL. DRESSINGS CDI. CALL LIGHT WITHIN REACH.
--- NOTE | 2022-04-18 21:54 | NUR ---
TO PT ROOM FORM MEDICATION ADMINISTRATION. PT C/O PAIN AT LEFT WRIST IV SITE. IV ABX STOPPED. NEW IV STARTED TO RIGHT AC. C/O BACK/ABD 10/07. PAIN MEDICATION GIVEN. PT IS A/O. CALL LIGHT WITHIN REACH.
--- NOTE | 2022-04-19 00:15 | NUR ---
ROUNDED ON PT. REPOSITIONED IN BED. IV FLUIDS AND ABX RUNNING. IV SITE WNL. PT DENIES NEEDS/COMPLAINTS ATT. CALL LIGHT WITHIN REACH.
--- NOTE | 2022-04-19 00:51 | NUR ---
PT ASSESSMENT COMPLETED. PT APPEARS TO BE SLEEPING COMFORTABLY. AROUSES EASILY. IV FLUIDS RUNNING. CALL LIGHT WITHIN REACH.
--- NOTE | 2022-04-19 04:02 | NUR ---
PT ASSESSMENT COMPLETED. PT APPEARS TO BE SLEEPING COMFORTABLY. AROUSES EASILY. WILLIS CATHETER DRAINING WELL. IV FLUIDS RUNNING. CALL LIGHT WITHIN REACH.
--- NOTE | 2022-04-19 06:30 | NUR ---
ROUNDED ON PT. ASSISTED PT TO RIGHT SIDE. WILLIS AND NEPHROSTOMY BAGS EMPTIED. PT IS A/O, RESPIRATIONS EVEN AND REGULAR. IV FLUIDS RUNNING. CALL LIGHT WITHIN REACH.
--- NOTE | 2022-04-19 08:15 | NUR ---
ASSESSMENT COMPLETE. SP CATH NEPHROSTOMY TUBE PATENT. IVF INFUSING, SITTING UP IN BED EATING BREAKFAST. LABS DRAWN EARLIER. TALKED WITH PATIENT ABOUT PLAN OF CARE, INDICATES UNDERSTANDING.
--- NOTE | 2022-04-19 09:00 | NUR ---
RESTING, NO DISTRESS NOTED.
--- NOTE | 2022-04-19 10:00 | NUR ---
HOB ELEVATED. SLEEPING. RESP EVENN AND NON-LABORED.
--- NOTE | 2022-04-19 11:30 | NUR ---
ACCUCHECK-276, HUMALOG INSULIN 7 UNITS SQ GIVEN. ASSESSMENT UNCHANGED. SP CATH AND NEPHROSTOMY TUBE PATENT. IVF INFUSING. DENIES PAIN.
--- NOTE | 2022-04-19 12:20 | NUR ---
PATIENT TOOK LUNCH WELL. UNABLE TO FIND PATIENT PERSONAL CELL PHONE. ADLS DONE, WHILE DOING ADLS, LOOKING FOR PHONE IN BED AND ROOM. LINENS CHANGED, UNABLE TO FIND PHONE. AFTER AM CARES DONE, PATIENT TRANSFERRED TO ELECTRIC W/C SO STAFF COULD LOOK UNDER THE MATTRESS. WHEN PATEINT IN W/C, HE MOVED THE CHAIR FORWARD AND THE PHONE WAS THEN FOUND. PATIENT WISHES TO REMAIN IN CHAIR. DENIES PROBLEMS. MONITOR OFF WHEN PATIENT IN CHAIR, IVF HELD.
--- NOTE | 2022-04-19 14:10 | NUR ---
SUPERVISIOR AND FLOAT RN PUT PATIENT BACK TO BED USING OVERHEAD LIFT.
--- NOTE | 2022-04-19 15:27 | NUR ---
IVF AND MONITOR REAPPLIED.
--- NOTE | 2022-04-19 16:25 | NUR ---
TYLENOL 1000 MG PO GIVEN FOR OVERALL COMFORT.
--- NOTE | 2022-04-19 16:30 | NUR ---
ASSESSMENT COMPLETE. PATIENT IS DOING WELL. SAID THE TYLENOL HELPED FOR COMFORT. HAS BEEN W/O FEVER OR CHILLS. IVF CONTINUE TO INFUSE AT 125 ML/HR.
--- NOTE | 2022-04-19 16:47 | NUR ---
WATCHING MOVE ON PHONE.
--- NOTE | 2022-04-19 16:47 | NUR ---
WATCHING A MOVIE ON PHONE. COLOSTOMY BAG INTACT, NO STOOL NOTED. DENIES PROBLEMS.
--- NOTE | 2022-04-19 17:50 | NUR ---
TOOK DINNER WELL. NO CHANGES. RESTFUL.
--- NOTE | 2022-04-19 18:40 | NUR ---
DR. NAVAS AWARE OF URINE CULTURE REPORT OF EMRE ALBICANS. HE SAID HE WOULD ORDER AN ANTI-FUNGAL.
--- NOTE | 2022-04-19 19:30 | NUR ---
SHIFT REPORT RECEIVED. PATIENT RESTING WITH EYES CLOSED. RR 16; HR 68 SR. CALL LIGHT IN REACH.
--- NOTE | 2022-04-19 21:15 | NUR ---
PATIENT WOKE EASILY. REPORTS MILD PAIN IN BACK AND GENERALIZED, PRN OXY PROVIDED. ASSISTED PATIENT TO REPOSITION. SCHEDULED MEDS PROVIDED. PATIENT DENIES ANY NAUSEA. IV SITE WNL, FLUIDS PER ORDER. WILLIS EMPTIED AND NEPHROSTPMY HAS MINIMAL OUTPUT. ROOM CLEANED AND PATIENT DENIES FURTHER NEEDS. CALL LIGHT IN REACH.
--- NOTE | 2022-04-20 00:32 | NUR ---
PATIENT WATCHING TV ON HIS PHONE. DENIES ANY CONCERNS. ENCOURAGED PATIENT TO REST. PATIENT HAS HAD LATE PM SNACK. VS STABLE. DENIES PAIN. GOOD URINE OUTPUT. CALL LIGHT IN REACH. LIGHTS DIMMED.
--- NOTE | 2022-04-20 03:33 | NUR ---
ASSISTED PATIENT TO TURN TO HIS RIGHT SIDE. PATIENT REPORTS FEELING WELL. SLEEPING OFF AND ON. CALL LIGHT IN REACH.
--- NOTE | 2022-04-20 04:45 | NUR ---
assist patient to reposition to left side. IV fluids per order, site wnl. patient denied any concerns. vazquez draining freely. nephrostomy intact. call light in reach.
--- NOTE | 2022-04-20 06:30 | NUR ---
ASSISTED PATIENT TO REPOSITION IN BED. WILLIS EMPTIED. MINIMAL OUTPUT IN NEPHOSTOMY TUBE. VS STABLE. IV FLUIDS PER ORDER, SITE WNL. PATIENT CONTINUES TO REST OFF AND ON. DENIES NEEDS. CALL LIGHT IN REACH.
--- NOTE | 2022-04-20 07:30 | NUR ---
REPORT RECIEVED. PATIENT IS RESTFUL IN BED. IVF INFUSING.
--- NOTE | 2022-04-20 08:20 | NUR ---
TOOK TO BREAKFAST WELL. NO URINE NOTED IN TUBING OR BAG FRON SP CATH. WILL MOVE PATIENT AROUND IN BED, POSSIBILITY TO CHAIR TO SEE IF URINE WILL BEGIN TO DRAIN/FLOW. PATIENT DENIES NEED FOR PAIN MEDICATION. PLAN TO GIVE PATIENT A SHOWER THIS MORNING. THIS OKAY WITH MD. COLOSTOMY BAG, NEPHROSTOMY TUBE INTACT. IVF PATENT.
--- NOTE | 2022-04-20 08:40 | NUR ---
PRIOR TO SHOWER, ALLEVYN REMOVED FROM WOUNDS ON BOTH HIPS, RIGHT UP INNER BUTTOCKS, RIGHT HEEL. WOUND CONSULT ORDERED. DRESSING TO LEFT NEPHROSTOMY TUBE INTACT.
--- NOTE | 2022-04-20 09:00 | NUR ---
TO SHOWER CHAIR VIA OVERHEAD LIFT. THEN TO SHOWER, TWO STAFF ASSISTED PATIENT PATIENT WITH SHOWER. AFTER SHOWER, RETURNED TO BED. CONTINUES W/O URINE IN SP CATH TUBING OR BAG. ATTEMPTED TO ASPIRATE URINE USING LURE-LOCK 10 ML SYRINGE, TRIED THIS SEVERAL TIMES, UNABLE TO ASPIRATE URINE. SP CATH TUBING DISCONNECTED, PISTON SYRINGE USED TO ASPIRATE URINE. WITH ASPIRATION OF URINE, STEADY FLOW OF URINE THEN NOTED.
--- NOTE | 2022-04-20 10:25 | NUR ---
NAPPING AT THIS TIME. NO DISTRESS NOTED.
--- NOTE | 2022-04-20 12:15 | NUR ---
DR. NAVAS UPDATED ON STATUS OF THE SP CATH, IS AWARE OF THE NEED TO ASPIRATE THE SP CATH AT TIMES IN ORDER TO GET THE URINE FLOWING TO CATH BAG.
--- NOTE | 2022-04-20 12:30 | NUR ---
TOOK LUNCH WELL. ORDERS RECIEVED TO TRANSFER TO [facility].
--- NOTE | 2022-04-20 14:28 | NUR ---
NO CHANGES. UPDATE TO DAUGHTER GIVEN VIA PHONE.
--- NOTE | 2022-04-20 14:37 | NUR ---
PATIENT IS SITTING IN BED.PATIENT LIVES WITH HIS DAUGHTER. DESIRE TO HEAL COULD NOT MEET HIS CARE NEEDS.HANDOUTS GIVEN FOR PLACEMENT OPITIONS IN ROSE.ALSO DME PHONE NUMBERS GIVEN TO PATIENT. PATIENT CURRENTLY SLEEPS IN HIS DAUGHTER'S FRONT ROOM. PATIENT PLANS TO MOVE IN THE FUTURE.
--- NOTE | 2022-04-20 14:47 | NUR ---
PT ALERT, USING HIS PHONE. WHEN FINISHED HE INVITED ME IN. HAD GOOD VISIT WITH PT. HE IS CONCERNED HE HAS PSORISIS. PT REQUESTED PRAYER, MENTIONED THAT HIS IMAGE PROCESSING ENGINEER HAS STAYED IN TOUCH BY PHONE.
--- NOTE | 2022-04-20 15:10 | NUR ---
NO URINE NOTED IN SP CATH TUBING. PISTON SYRINGE USED TO ASPIRATE, THEN ONCE AGAIN URINE FLOWING.
--- NOTE | 2022-04-20 15:20 | NUR ---
OVERHEAD LIFT USED TO MOVE PATIENT TO CHAIR.
--- NOTE | 2022-04-20 16:15 | NUR ---
REMAINS IN CHAIR. IS W/O C/O. IS FEELING BETTER.
--- NOTE | 2022-04-20 16:45 | NUR ---
BACK TO BED USING OVERHEAD LIFT. ACCUCHECK 265, HUMALOG INSULIN 5 UNITS SQ GIVEN. PATIENT HAS BEEN VERY TALKATIVE TODAY.
--- NOTE | 2022-04-20 17:15 | NUR ---
WOUND RN HERE TO WORK WITH PATIENT.
--- NOTE | 2022-04-20 18:30 | NUR ---
WOUND CARE COMPLETE BY Roberta AYERS RN. PATIENT TOLERATED WELL.
--- NOTE | 2022-04-20 19:13 | NUR ---
WOUND CARE CONSULT WOUND CARE CONSULT COMPLETED. WOUND CARE ORDERS UNDER WOUND CARE NURSE NOTIFY IN ORDERS. FINDINGS REPORTED TO PRIMARY NURSE DOUG JIMÉNEZ. PATIENT TOLERATED WOUND CARE ASSESMENT WELL. PICTURES AND MEASUREMENTS COLLECTED. PICTURES IN CHART. SEE COMPLEX WOUND ASSESMENT.
--- NOTE | 2022-04-20 19:30 | NUR ---
REPORT RECEIVED FROM DAY SHIFT RN. PT IS RESTING IN BED WITH HIS EYES CLOSED AND APPEARS COMFORTABLE AT THIS TIME. TOLERATING IVF ORDERED. NO DISTRESS NOTED. CALL LIGHT WITHIN REACH. WILL CONT TO MONITOR.
--- NOTE | 2022-04-20 20:30 | NUR ---
PT W/ C/O 11/07 BACK PAIN- PRN ADMINISTERED. PT COMPLIANT W/ MEDICATION ADMINISTRATION AND ASSESSMENT. IV PATENT W/ IVF INFUSING PER ORDER. LT NEPHROSTOMY TUBE PATENT. SP CATH IN PLACE AND DRAINING APPROPRIATELY. NO DISTRESS NOTED. CALL LIGHT WITHIN REACH. PT VERBALIZES NEEDS APPROPRIATELY. WILL CONT TO MONITOR.
--- NOTE | 2022-04-21 | NUR ---
PT REQUESTED ASSISTANCE W/ REPOSITIONING IN BED- ASSISTED W/ TURN TO RT SIDE. PT STATES HE'S COMFORTABLE AT THIS TIME W/O FURTHER NEEDS. WATER WITHIN REACH. CALL LIGHT AT HAND. TOLERATING IVF. NO DISTRESS NOTED. WILL CONT TO MONITOR.
--- NOTE | 2022-04-21 02:00 | NUR ---
PT RESTING IN BED W/ HIS EYES CLOSED AND APPEARS COMFORTABLE. NO DISTRESS NOTED. TOLERATING IVF ORDERED. CALL LIGHT AT HAND. WILL CONT TO MONITOR.
--- NOTE | 2022-04-21 04:00 | NUR ---
PT RESTING IN BED W/ HIS EYES CLOSED AND APPEARS COMFORTABLE. NO DISTRESS NOTED. CALL LIGHT AT HAND. WILL CONT TO MONITOR.
--- NOTE | 2022-04-21 06:00 | NUR ---
PT AWAKE IN BED, USING PHONE AND WATCHING TV. NEPHROSTOMY AND SP CATH DRAINED, PUMP CLEARED. ROOM CLEANED UP. VSS. NO DISTRESS NOTED. RESPIRATIONS EVEN AND UNLABORED. CALL LIGHT AT HAND. PT VERBALIZES NEEDS APPROPRIATELY. WILL CONT TO MONITOR.
--- NOTE | 2022-04-21 10:00 | NUR ---
THIS RN TOOK OVER PATIENT CARE AT THIS TIME. PATIENT RESTING IN BED PLAYING ON HIS PHONE AND DENIES ANY NEEDS AT THIS TIME. WILL CONTINUE TO CLOSELY MONITOR.
--- NOTE | 2022-04-21 10:50 | NUR ---
THIS RN IN TO START PATIENT VANCO MEDICATION PER ORDERS. REVIEWED PLAN OF CARE WITH PATIENT. EMPITED PATIENTS NEPHROSTOMY AND CATHETER. NO OTEHR ENEDS AT THIS TIME.
[2022-04-21] MEDS ORDERED: FLUCONAZOLE200 MG PO (12:48)
[2022-04-21] MEDS ORDERED: CEFDINIR300 MG PO (12:51)
[2022-04-21] MEDS ORDERED: DOXYCYCLINE HY100 MG PO (12:52)
--- NOTE | 2022-04-21 13:10 | NUR ---
THIS RN IN TO HELP PATIENT GET DRESSED. PATIENT DOES HAVE SOME DIZZINESS WITH ACTIVITY, BUT PATIENT DOES WELL ONCE HE HAS ACLAMATED TO THE POSITION CHANGE. PATIENT HOYERED TO HIS MOTORIZED CHAIR WITH THIS RN AND JOSUE IQBAL. PATIENT TOLERATING WELL. PATIENT DENIES ANY OTHER NEEDS AT THIS TIME. WILL CONTINUE TO CLOSELY MONITOR. PHONE IN PATIENTS HAND.
--- NOTE | 2022-04-21 13:41 | NUR ---
Sitting in wheelchair,signed [place] MED[place]. Plan to discharge the patient today to his daughter's house. [facility] notified of discharge.
== END 2022-04-21 13:55 | disposition home or self-care (01) | DRG 699 ==
LOC: ED 10:36 → MS 19:39 → CCU 19:39
PROVIDERS: ADMIT Internal Medicine; ATTEND Family Medicine
DX: T83.512A Infection and inflammatory reaction due to nephrostomy catheter, initial encounter (principal); G82.20 Paraplegia, unspecified; N10 Acute pyelonephritis; Z20.822 Contact with and (suspected) exposure to COVID-19; K80.20 Calculus of gallbladder without cholecystitis without obstruction; I10 Essential (primary) hypertension; I95.9 Hypotension, unspecified; E11.40 Type 2 diabetes mellitus with diabetic neuropathy, unspecified; N31.9 Neuromuscular dysfunction of bladder, unspecified; E11.65 Type 2 diabetes mellitus with hyperglycemia; Z90.49 Acquired absence of other specified parts of digestive tract; Z98.890 Other specified postprocedural states; S24.103S Unspecified injury at T7-T10 level of thoracic spinal cord, sequela; Z88.1 Allergy status to other antibiotic agents; Z88.8 Allergy status to other drugs, medicaments and biological substances; Z79.4 Long term (current) use of insulin; Z79.02 Long term (current) use of antithrombotics/antiplatelets; Z79.899 Other long term (current) drug therapy; Y83.1 Surgical operation with implant of artificial internal device as the cause of abnormal reaction of the patient, or of later complication, without mention of misadventure at the time of the procedure
CPT/HCPCS: 36415; 74177; 76705; 80048; 80053; 80202; 81001; 81003; 83036; 83605; 83735; 85025; 87077; 87088; 87502; A9270; C9803; J0692; J0696; J1650; J1815; J2405; J3370; J7040; J7060; J7121; Q9967; U0003

== ENCOUNTER 2022-07-12 13:43 | Emergency (ER) | payer MEDICARE, OTHER ==
[~2022-07-12] VITALS: Ht 182.9 cm; Wt 121.7 kg
[~2022-07-12 13:43] MED LIST changes: +CARVEDILOL25 MG PO; +CEFDINIR300 MG PO; +CLOPIDOGREL75 MG PO; +FLUCONAZOLE200 MG PO; +LOSARTAN POTASS50 MG PO; +OZEMPIC0.25 MG/0. SUB-Q; +OZEMPIC1 MG/0.71 SUB-Q
--- NOTE | 2022-07-13 07:17 | EKG ---
[facility] [address] [place], [place] [address] Signed Normal sinus rhythm Nonspecific ST abnormality Abnormal ECG When compared with ECG of 28-MAY-2022 16:13, No significant change was found Confirmed by VINCENT ROMAN MD ([id number]) on 07/13/2022 7:17:09 AM Electronically Signed By: VINCENT ROMAN MD 07/13/22 0717 PATIENT NAME: HERMINIO JON Electrocardiogram DATE OF : 55 PHYSICIAN: VINCENT ROMAN MD REPORT #: [id number] REPORT IS CONFIDENTIAL AND NOT TO BE RELEASED WITHOUT AUTHORIZATION
== END 2022-07-12 17:30 | disposition home or self-care (01) ==
LOC: ED 13:43
DX: J44.9 Chronic obstructive pulmonary disease, unspecified (principal); E11.42 Type 2 diabetes mellitus with diabetic polyneuropathy; I10 Essential (primary) hypertension; Z88.1 Allergy status to other antibiotic agents; Z88.5 Allergy status to narcotic agent; Z88.8 Allergy status to other drugs, medicaments and biological substances; Z79.899 Other long term (current) drug therapy; Z79.82 Long term (current) use of aspirin; Z79.4 Long term (current) use of insulin; Z20.822 Contact with and (suspected) exposure to COVID-19
CPT/HCPCS: 36415; 71045; 80053; 83735; 84484; 85025; 87502; 93005; 93010; 94640; 94664; 96374; 99285-25; J1100; U0003

== ENCOUNTER 2023-09-25 10:58 | Inpatient (IN) | payer MEDICARE, OTHER ==
[2023-09-25] VITALS (7 sets, daily range): BP systolic 128–186; BP diastolic 52–101
[~2023-09-25] VITALS: Ht 182.9 cm; Wt 117.2 kg
[~2023-09-25 10:58] MED LIST changes: +CHLORTHALIDONE25 MG PO; +FAMOTIDINE40 MG PO
[2023-09-25 11:28] LABS: BASOPHILS 0.2 % (0-2); EOSINOPHILS 0.1 % (0-6); HEMATOCRIT 46.2 % (35.0-50.0); HEMOGLOBIN 15.3 g/dL (12.0-18.0); LYMPHOCYTES 2.4 % (24-44); MCHC 33.1 g/dl (30-36); MCV 81.6 fl (81-99); MONOCYTES 4.9 % (0-12); NEUTROPHILS 92.4 % (39-80); PLATELET COUNT 149 K/uL (140-440); RBC 5.67 M/ul (4.3-5.7); RDW 16.6 (10.5-15.0)
[2023-09-25] MEDS ORDERED: ondansetron HCL 4 MG/2 ML VIAL IV ONE (11:30)
[2023-09-25] MEDS ORDERED: SODIUM CHLORIDE 0.9% 1,000 ML IV PRN (11:30)
[2023-09-25] MEDS ORDERED: CEFTRIAXONE/SODIUM CHLORIDE 1 GM/100 ML PIGGYBACK IV ONE ×2 (11:30→16:00)
[2023-09-25 11:42] LABS: ALBUMIN 2.7 g/dL (3.4-5.0); ALBUMIN/GLOBULIN RATIO 0.6 (1.1-2.4); BILIRUBIN, TOTAL 0.8 ng/dL (0.2-1.0); BUN/CREATININE RATIO 21.66 (6.0-28.6); CALCIUM 9.9 mg/dL (8.5-10.1); CREATININE, SERUM 1.8 mg/dL (0.70-1.30); PROTEIN, TOTAL 7.2 g/dL (6.4-8.2)
[2023-09-25 11:45] LABS: LACTIC ACID, BLOOD 1.9 mmol/L (0.4-2.0)
[2023-09-25 11:59] LABS: BILIRUBIN, URINE NEGATIVE (negative); BLOOD/HGB, URINE LARGE (Negative); KETONE, URINE NEGATIVE (Negative); LEUK ESTERASE, URINE MODERATE (negative); NITRITE, URINE POSITIVE (negative); PH, URINE 7.5 (5-7)
[2023-09-25 12:17] LABS: EPITHELIAL CELLS, URINE SQUAMOUS 1+ /lpf (0-1+)
[2023-09-25 12:18] LABS: BACTERIA, URINE 1+ /hpf (negative); CASTS, URINE NONE SEEN \\lpf; COLLECTION TYPE, URINE CLEAN CATCH; CRYSTALS, URINE NONE SEEN (0-1+); RED BLOOD CELLS, URINE >50 /hpf (0-5); REFLEX CULTURE, URINE Yes (No); WHITE BLOOD CELLS, URINE >50 /HPF (0-5)
[2023-09-25 12:54] LABS: LACTIC ACID, BLOOD 1.7 mmol/L (0.4-2.0)
[2023-09-25] MEDS ORDERED: LABETALOL HCL 20 MG/4 ML VIAL IV ONE (13:00)
[2023-09-25] MEDS ORDERED: PROCHLORPERAZINE EDISYLATE 10 MG/2 ML VIAL IV PRN (14:00)
[2023-09-25] MEDS ORDERED: ACETAMINOPHEN 325 MG TAB PO PRN (14:00)
[2023-09-25] MEDS ORDERED: SODIUM CHLORIDE 0.9% 1,000 ML IV SCH (14:00)
[2023-09-25] MEDS ORDERED: ondansetron HCL 4 MG/2 ML VIAL IV PRN (14:00)
--- NOTE | 2023-09-25 14:57 | NUR ---
New admit to the medical floor. Patient alert and oriented x4. Vital signs stable, temp 99.8f. Patient oriented to room and call light.
--- NOTE | 2023-09-25 15:06 | NUR ---
Compazine 10mg IV admin per protocol for nausea. IV fluids started per provider order.
[2023-09-25] MEDS ORDERED: GLUCAGON,HUMAN RECOMBINANT 1 MG/ML VIAL SUB-Q PRN (15:45)
[2023-09-25] MEDS ORDERED: DEXTROSE 50% 50 ML SYR IV PRN ×2 (15:45)
[2023-09-25] MEDS ORDERED: DEXTROSE 5% 1,000 ML IV PRN (15:45)
[2023-09-25] MEDS ORDERED: IBLOOD GLUCOSE TEST STRIP 1 EA TEST XX PRN (15:45)
--- NOTE | 2023-09-25 16:21 | NUR ---
WENT IN AND HELPED NURSE GIVE PATIENT A BED BATH AND ERASMO CARE. ALSO PUT A NEW GOWN ON HIM. ALSO WE BOOSTED UP IN BED. PATIENT IS NOW SLEEPING.
[2023-09-25] MEDS ORDERED: IBLOOD GLUCOSE TEST STRIP 1 EA TEST VI SCH (17:00)
[2023-09-25] MEDS ORDERED: INSULIN LISPRO 100 UNIT/ML ML SUB-Q SCH (17:00)
--- NOTE | 2023-09-25 18:59 | NUR ---
TYLENOL 650MG PO ADMIN FOR TEMP OF 101.8F PO. WILL UPDATE DR. NAVAS.
--- NOTE | 2023-09-25 19:02 | NUR ---
DR. NAVAS UPDATED REGARDING MOST RECENT TEMP OF 101.8F AND ELVATED BP. PER DR. NAVAS HE WILL PLACE PRN FOR ELEVATED BLOOD PRESSURE.
[2023-09-25] MEDS ORDERED: hydrALAZINE HCL 20 MG/ML VIAL IV PRN (19:15)
[2023-09-25] MEDS ORDERED: INSULIN GLARGINE-YFGN 100 UNIT/ML ML SUB-Q SCH (21:00)
[2023-09-25] MEDS ORDERED: carvediloL 25 MG TAB PO SCH (21:00)
--- NOTE | 2023-09-25 21:25 | NUR ---
pt awakes easily, no c/o pain. on room air, lungs dim at bases, distant heart sounds. temp 100.1 improving from earlier, resp 22, placed on hourly vitals as per MEWS. pt improving from earlier, not called at thist miguel, not on CPOX. skin warm to touch, red under pannus, pt very obese, red scrotal/penile area. suprapubic cath care done, patent, draining yellow cloudy/sediments urine. R stoma patent, dry at thist miguel. JESSICA. LBKA. edema to ankles. SL LAC and IVF infusing RAC, patent. pt tolerating large amounts of fresh fluids.. repositioned nad turned at his requets, required 3-4 people. CG 279, required 7 units ss insulin. Pleasant and cooperative, had ensure per requests
--- NOTE | 2023-09-25 22:22 | NUR ---
temp 98.0, med effective, continue with vitals every 3hr as per earlier MEWS score will stop if still WNL at 2300.
--- NOTE | 2023-09-25 23:49 | NUR ---
TEMP 97.9, RESP 18, BP 158/58. AWAKES EASILY FOR VITALS, AFEBRILE AT THIS TIME, ASKIN WARM TO TOUCH, NOT DIAPHORETIC. COOPERATIVE, NO C/O PAIN, F/C PATENT URINE WITH SEDIMENTS. IVF INFUSING, PT TOLERATING LIQUIDS WELL.
[2023-09-26] VITALS (10 sets, daily range): BP systolic 115–150; BP diastolic 58–85
--- NOTE | 2023-09-26 02:51 | NUR ---
temp 100.5. 2 bedspreads removed. tolerating liquids well, no n/v. tylenol 650mg po given po per temp. pt turns self in bed by grabbing on to rails and dragging self. LBKA. IVF infusing RAC. cooperative with second assessment and vitals
--- NOTE | 2023-09-26 03:24 | NUR ---
UPDATE ON PT GIVEN TO DR NAVAS VIA PHONE. NO NEW ORDERS
[2023-09-26 05:33] LABS: BASOPHILS 0.2 % (0-2); EOSINOPHILS 0.1 % (0-6); HEMATOCRIT 37.7 % (35.0-50.0); HEMOGLOBIN 12.7 g/dL (12.0-18.0); LYMPHOCYTES 5.3 % (24-44); MCH 27.2 (27-36); MCHC 33.6 g/dl (30-36); MONOCYTES 7.7 % (0-12); NEUTROPHILS 86.7 % (39-80); PLATELET COUNT 128 K/uL (140-440); RBC 4.66 M/ul (4.3-5.7); RDW 16.6 (10.5-15.0)
[2023-09-26 05:50] LABS: ALBUMIN 2.1 g/dL (3.4-5.0); ALBUMIN/GLOBULIN RATIO 0.53 (1.1-2.4); ANION GAP 11.7 (7-21); BILIRUBIN, TOTAL 0.5 ng/dL (0.2-1.0); BUN/CREATININE RATIO 26.95 (6.0-28.6); CALCIUM 9.2 mg/dL (8.5-10.1); CREATININE, SERUM 1.15 mg/dL (0.70-1.30); MAGNESIUM 1.8 mg/dL (1.8-2.4); PHOSPHORUS, INORGANIC 2.6 mg/dL (2.5-4.9); POTASSIUM 2.7 mmol/L (3.5-5.1); PROTEIN, TOTAL 6.1 g/dL (6.4-8.2)
--- NOTE | 2023-09-26 06:06 | NUR ---
awakens easily, no c.o pain. Tylenol given earlier for temp effective. afebrile at this time. lungs clear dim at bases, moist non productive cough present on ocassion. tolerating large amounts of liquids well. IVF infusing, SL patent. suprapubic catherer patent, urine with sediments. LBKA no change. skin care done under pannus, smear of bm. rectal care done. large external hemoroid noted. denies tenderness at site. edema to RLE and redness between toes noted. helped with turning and repositioning. no c/o pain.
--- NOTE | 2023-09-26 07:15 | NUR ---
Pt report received from TINO Sagastume. Pt is resting with eyes closed on his left side, responds to voice. A&O, requests shades to be drawn, denies any abnormal pain at this time, requests fresh iced water. Lungs clear throughout. Board updated. Side rails up x4, call light in reach.
[2023-09-26] MEDS ORDERED: POTASSIUM CHLORIDE 40 MEQ,LIDOCAINE HCL 1% 40 MG in DEXTROSE 5% 500 ML IV ONE (08:00)
[2023-09-26] MEDS ORDERED: CLOPIDOGREL BISULFATE 75 MG TAB PO SCH (09:00)
[2023-09-26] MEDS ORDERED: CELECOXIB 200 MG CAP PO SCH (09:00)
[2023-09-26] MEDS ORDERED: ENOXAPARIN SODIUM 40 MG/0.4 ML SYR SUB-Q SCH (09:00)
[2023-09-26] MEDS ORDERED: ATORVASTATIN 40 MG TAB PO SCH (09:00)
[2023-09-26] MEDS ORDERED: CEFTRIAXONE/SODIUM CHLORIDE 2 GM/100 ML PIGGYBACK IV SCH (09:00)
[2023-09-26] MEDS ORDERED: ASPIRIN 81 MG CHEW PO SCH (09:00)
--- NOTE | 2023-09-26 09:32 | NUR ---
EMAIL SPECIALIST ENTERED ROOM TO ASSIST PT WITH GETTING HIS BREAKFAST READY TO EAT. PT IS MUCH MORE ENERGETIC TODAY THAN HE WAS YESTERDAY. PT WAS BALE TO SIT UP IN BED AND HIS TRAY WAS PLACED WITHIN REACH. EMAIL SPECIALIST REFILLED PT WATER AND PT HAD NO FURTHER COMPLAITNS OR CONCERNS. CALL LIGHT IS WITHIN REACH
--- NOTE | 2023-09-26 09:58 | NUR ---
PT LAYING IN BED, SHADES DRAWN DOWN. WILLIS DRAINED AND DOCUMENTED. VITALS AND I/O'S COMPLETED. PT HAS NO OTHER NEEDS AT THIS TIME. CALL LIGHT WITHIN REACH.
[2023-09-26] MEDS ORDERED: PHARMACY RENAL DOSE ADJUSTMENT 1 DOSE MISC PO SCH (12:00)
[2023-09-26] MEDS ORDERED: JANUVIA100 MG PO (15:42)
[2023-09-26] MEDS ORDERED: JARDIANCE10 MG PO (15:43)
[2023-09-26] MEDS ORDERED: AMOXICILLIN500 MG PO (15:45)
[2023-09-26] MEDS ORDERED: K-TAB ER20 MEQ PO (15:45)
--- NOTE | 2023-09-26 15:46 | NUR ---
medications reconciled using pharmacy records and facility [facility]
--- NOTE | 2023-09-26 19:37 | NUR ---
Report received earlier from Gina JIMÉNEZ. pt resting, eyes closed, romm temp 76, lowered to 70, 3 white blankets removed, cares explained, will recheck temp in 2 hrs, denies c/o pain or discomofrt. IVF infusin RAC
--- NOTE | 2023-09-26 19:59 | NUR ---
PATIENT IS LAYING DOWN, ASKED IF HE NEEDED OR WANTED ANYTHING HE DECLINED. PATIENT HAS CALL LIGHT.
--- NOTE | 2023-09-26 21:23 | NUR ---
2116 - TALKED TO DR NAVAS R/T PTS WANTING SOMETHING STRONGER THAN TYLENOL PER CHRONIC BACK PAIN. TO WRITE ORDERS
[2023-09-26] MEDS ORDERED: HYDROCODONE/ACETA 5/325 TAB PO PRN (21:30)
[2023-09-26] MEDS ORDERED: KETOROLAC TROMETHAMINE 15 MG/ML VIAL IV PRN (21:30)
--- NOTE | 2023-09-26 22:07 | EKG ---
[facility] [address] [place] [address] Signed Sinus tachycardia Otherwise normal ECG When compared with ECG of 12-JUL-2022 14:19, No significant change was found Confirmed by Isabella Navas MD () on 09/26/2023 10:08:02 PM Electronically Signed By: ISABELLA NAVAS MD 09/26/23 2207 PATIENT NAME: HERMINIO JON Electrocardiogram DATE OF : 55 PHYSICIAN: ISABELLA NAVAS MD REPORT #: [id number] REPORT IS CONFIDENTIAL AND NOT TO BE RELEASED WITHOUT AUTHORIZATION
--- NOTE | 2023-09-26 22:27 | NUR ---
CBG 226, received 5 units SS Insulin, plus garglyne. Repositioned to his R his requests. Xuan lift used. cooperative. On room air, lungs dim at bases, JESSICA, no bm since admittion. Has L abd stoma. s/p cath in place, draining yellow urine with thick sediments, strong smell. romie care done, red scrotal/penile rosemarie, and under pannus. large external hemorroids noted. LBKA. edema to R leg ankles and feet, gross movemnt to R leg. moves arms very well. c/o back pain and had a temp of 100.0. IS at bedside, instructions given verbally, tried several times requiring cuing. cont to reinforce teaching. Medicated with Toradol. IVF infusing RACGOGOA SL patent. pleasnt and cooperative. Will recheck temp at midnight
[2023-09-27] VITALS (10 sets, daily range): BP systolic 152–175; BP diastolic 55–75
--- NOTE | 2023-09-27 01:09 | NUR ---
Resting, on R side, IVF infusing, no s/x distress, on room air. suprapubic cath patent. draining yellow urine with sediments. was afebrile at midnight. Meds effective
--- NOTE | 2023-09-27 03:00 | NUR ---
Resting, on his back, IVF infusing, f/c patent, no changes.
--- NOTE | 2023-09-27 03:30 | NUR ---
PT CALLED, SAID HE WAS SWEATY. WITH ASSIST OF SECOND RN, PT WAS PLACED ON DRY KIESHA SHEET, CHANGED ATTENDS, WIPE DOWN UPPER BODY. PT ON BACK PER CHOICE AT THIS TIME. A/O, STATES HE FEELS MUCH BETTER VS ADMISSION. STATES HE IS INDEPENDENT WITH ASSIST WITH SET UP AT [facility]. ABLE TO SELF TRANSFER IN AND OUT OF BED TO WHEELCHAIR. CALL LIGHT WITHIN REACH. NO OTHER NEEDS AT THIS TIME.
[2023-09-27 05:24] LABS: BASOPHILS 0.4 % (0-2); EOSINOPHILS 2.2 % (0-6); HEMATOCRIT 36.3 % (35.0-50.0); LYMPHOCYTES 7.8 % (24-44); MCH 26.9 (27-36); MCHC 33.1 g/dl (30-36); MCV 81.3 fl (81-99); MONOCYTES 10.9 % (0-12); NEUTROPHILS 78.7 % (39-80); PLATELET COUNT 121 K/uL (140-440); RBC 4.47 M/ul (4.3-5.7); RDW 16.4 (10.5-15.0)
[2023-09-27 05:38] LABS: ALBUMIN/GLOBULIN RATIO 0.53 (1.1-2.4); ANION GAP 9.9 (7-21); BILIRUBIN, TOTAL 0.5 ng/dL (0.2-1.0); BUN/CREATININE RATIO 29.41 (6.0-28.6); CREATININE, SERUM 0.85 mg/dL (0.70-1.30); MAGNESIUM 1.6 mg/dL (1.8-2.4); POTASSIUM 2.9 mmol/L (3.5-5.1); PROTEIN, TOTAL 5.8 g/dL (6.4-8.2)
--- NOTE | 2023-09-27 05:45 | NUR ---
PT AWAKENS EASILY, ON ROOM AIR. AFEBRILE AT THIS TIME 98.1. HAD A FEVER AT BEGINING OF SHIFT 100.0 ORAL. RECEIVED TORADOL AND IS GIVEN AND RETURN DEMONSTRATION DONE. COVERS REMOVED AN ROOM TEMP DECREAED TO 70. PT IS A KIESHA LIFT, WAFFLE MATTRESS IN PLACE. HELPS WITH TURNING AND REPOSITIONIED. REPOSITONED AT THIS TIME FROM BACK TO R SIDE. LBKA, GROSS MOVENT AND EDEMA TO R LEG. SUPRAPUBIC CATH IN PLACE, DRAINING YELLOW COLORED URINE WITH HEAVY SEDIMENTS. IVF INFUSING AND TOLERATING PO FLUIDS WELL. ENSURE GIVEN AT THIS TIME HIS REQUETS.
--- NOTE | 2023-09-27 06:58 | NUR ---
RESTING, EYES CLOSED, NO FURTHER C/O PAIN. IVF INFUSING
--- NOTE | 2023-09-27 07:02 | NUR ---
PT C/O BEING SOB, SATS 95%, PT ON ROOM AIR, LUNGS DIM AT BASES, MOIST COUGH PRESENT AT TIMES, IS AT BEDSIDE, INSTRUCTED TO USE IT AGAIN. WILL NO CYANOSIS NOTED, RESP 18, EVEN UNLABORED. WILL CONTINUE TO OBSERVE AND NOTIFY AND ONCOMIN RN
--- NOTE | 2023-09-27 07:13 | NUR ---
Pt report received from TINO Sagastume
--- NOTE | 2023-09-27 07:56 | NUR ---
PATIENT ASK FOR A GLASS OF WATER WHEN WAKING UP FOR BLOOD SUGAR CHECK. NO REORT OR SIGNS OF PAIN OR DISCOMFORT. BOARD HAS BEEN UPDATED AND CALL LIGHT HAS BEEN PLACED WITH IN PATIENT REACH.
[2023-09-27] MEDS ORDERED: MAGNESIUM SULFATE 2 GM/50 ML BAG IV ONE (08:15)
[2023-09-27] MEDS ORDERED: POTASSIUM CHLORIDE 40 MEQ,LIDOCAINE HCL 1% 40 MG in DEXTROSE 5% 500 ML IV ONE (08:15)
[2023-09-27] MEDS ORDERED: LIDOCAINE 2% VISCOUS 6 ML SYR TOP ONE (09:45)
--- NOTE | 2023-09-27 10:55 | NUR ---
Supra Pubic catheter changed out this shift, using sterile technique. Catheter is a 22fr per pt, therefore a 22fr catheter was used to replace the old one. Balloon inflated with 10ml sterile water and secured. Pt tolerated procedure well. Charge Nurse Betsy Colindres assisted this RN. Pt denies any needs at this time. Call light in reach.
--- NOTE | 2023-09-27 13:00 | NUR ---
Pt advised that he gives nurses permission to update his daughter, Lurdes, and her mother and brother. PC to his daughter, Lurdes, and updated her on his condition during my shifts.
--- NOTE | 2023-09-27 14:06 | NUR ---
VISITED PT DURING SPIRITUAL CARE ROUNDS. PT EXPRESSED ACCEPTANCE, HOPE, REQUESTED BIBLE WHICH I PROVIDED ALONG WITH ASSURANCE OF ONGOING PRAYER. PT EXPRESSED GRATITUDE.
--- NOTE | 2023-09-27 19:08 | NUR ---
COMPARED TO DAY SHIFT ON 09/25, PT HAS BEEN MORE ALERT AND AWAKE FOR MOST OF THE SHIFT. HE HAS HAD MULTIPLE VISITORS THROUGHOUT THE DAY. HE HAS COMPLAINED OF BACK PAIN 6 OUT OF 10, FOR WHICH HE WAS GIVEN 1 TAB OF NORCO PER EMAR. OSTOMY SYSTEM AND SUPRA PUBIC CATHETER WERE CHANGED THIS SHIFT. URINE IS STILL DARK WITH SOME SEDIMENT BUT MUCH LESS THAN YESTERDAY AND HIS URINE IS MORE CLEAR AND NOT CLOUDY. PT HAS NOT HAD ANY FEVERS THIS SHIFT. HIS OSTOMY HAD A SMALL AMOUNT OF LIQUID SOFT BROWN STOOL AND GAS IS EXITING THE OSTOMY WELL. BT ARE ACTIVE. PT WAS ABLE TO EAT A LITTLE BIT OF HIS BREAKFAST, 100% OF HIS LUNCH (SOUP AND COTTAGE CHEESE), AND HE ATE A LITTLE OF HIS DINNER STATING THAT MOST OF IT WAS JUST TOO RICH FOR HIM RIGHT NOW, BUT HE IS HUNGRY. PT WAS VERY TALKATIVE THIS SHIFT. HE EXPRESSED CONCERN ABOUT SLEEP APNEA AND THIS WAS PASSED ON TO DR. NAVAS WHO ORDERED CPOX. PT USES CALL LIGHT APPROPRIATELY.
--- NOTE | 2023-09-27 21:07 | NUR ---
PT AWAKE, KIESHA LIFT, HELPS WITH REPOSITIONING UP IN BED. C/O 7/10 BACK PAIN, MEDICATED WITH 1 NORCO. TOLERATING LIQUIDS WELL. COOP WITH ASSESSMENT AND VITALS, BP 175/75 RECEIVED 10 MG HYDRALAZINE IV. SL PEPE PATENT. IVF INFUSING RAC. ABD LARGE SOFT, STOMA CLEAN, NO BM, SUPRAPUBIC TACH PATENT DRAINING CLOUDY COLORED URINE. BOTH STOMA AND CATHERER WERE CHANGED THIS AM BY PRIMARY RN. ATTENDS IN PLACE, LARGE EXTERNAL HEMORROID PRESENT, LBKA, GROSS MOVEMENT R LEG EDEMA, ELEVATED. CBG 267, RECEIVED 5 UNITS SS INSULIN AND SCHEDULED GARGLYNE. WILL RECHECK BP IN 2 HOURS. PT INFORMED. IS AT BEDSIDE, CLEAR DISTANT LUNG SOUNDS, CPOX ON AT BEDSIDE
--- NOTE | 2023-09-27 21:31 | NUR ---
PATIENT CALLED FOR PHONE, ASKED PATIENT IF I COULD GET HIM WATER. HE DECLINED. PATIENT HAS CALL LIGHT.
--- NOTE | 2023-09-27 23:28 | NUR ---
PT USED CALL LIGHT, TURNED AND REPOSITIONED TO L SIDE. NO C/O PAIN, BP RECHECKED, SEE FLOW SHEET. F/C AND STOMA PATENT. IVF INFUSING
--- NOTE | 2023-09-28 00:04 | NUR ---
'I CAN NOT BREATHE' PT STAED. ON ROOM AIR, CPOX ON 97%, PULSE 68, RESP 18, LUNGS CLEAR, NO CYANOSIS, REASSURED, "I WAS TOLD I NEED TO GO AND SEE A SLEEP DR', CPOX ALARMS QUIET NOT GOING OFF. GOOD WAVELENGHT. REASSURED AND WENT BACK TO SLEEP. ARMS REPOSITIONED. REASSURED. WILL CON TO OBSERVE
--- NOTE | 2023-09-28 02:42 | NUR ---
pt turned and repositioning, ivf infusing. no c/o pain. on room air. cpox on at bedside, sats 96% pulse 77. resp 16. no distress. suprapubic f/c patent, draining yellow urine w sediments. stoma intact. no bm
[2023-09-28 05:46] LABS: BASOPHILS 0.6 % (0-2); EOSINOPHILS 2.3 % (0-6); HEMATOCRIT 36.9 % (35.0-50.0); HEMOGLOBIN 12.4 g/dL (12.0-18.0); LYMPHOCYTES 13.5 % (24-44); MCH 26.9 (27-36); MCHC 33.6 g/dl (30-36); MCV 80.2 fl (81-99); MONOCYTES 11.1 % (0-12); NEUTROPHILS 72.5 % (39-80); PLATELET COUNT 151 K/uL (140-440); RDW 16.3 (10.5-15.0)
[2023-09-28 05:56] LABS: ANION GAP 12.9 (7-21); CALCIUM 9.1 mg/dL (8.5-10.1); CREATININE, SERUM 0.7 mg/dL (0.70-1.30); MAGNESIUM 1.6 mg/dL (1.8-2.4); POTASSIUM 2.9 mmol/L (3.5-5.1)
[2023-09-28 06:10] VITALS: BP 159/58
--- NOTE | 2023-09-28 06:36 | NUR ---
pt awake, on room air, c/o not having slept at all this shift- pt had been resting off and on this shift. CPOX on at bedside, sats 90-97%, No cyanosis, no sob with exertion noted, hob elavated off and on his requests. c/o chest pain due to unable to sleep and feeling anxious. No visual abnormalities noted, heart auscultated, regular, no vein distention noted. no c/o earlier. "no. Kenn ok, that machine is not working", (no alarms have been set out this shift.) "I just need to go home, I feel better, I just do not know why I cant breathe." reassured. RT notified to come and assess pt, MD to be notified
--- NOTE | 2023-09-28 07:20 | NUR ---
REPORT RECEIVED FROM CRAFT RECRUITER RN LAY. PATENT IS SITTING UPRIGHT IN BED AT THIS TIME WITH EYES OPEN AND RESPIRATIONS ARE EVEN AND UNLABORED. CPOX IS AT THE PATIENTS BEDSIDE. PATIENT STATED NO FURTHER NEEDS AT THIS TIME. CALL LIGHT AND PERSONAL BELONGINGS ARE WITHIN REACH.
[2023-09-28] MEDS ORDERED: MAGNESIUM SULFATE 4 GM/100 ML BAG IV ONE (08:30)
[2023-09-28] MEDS ORDERED: POTASSIUM CHLORIDE 40 MEQ,LIDOCAINE HCL 1% 40 MG in DEXTROSE 5% 500 ML IV ONE (08:30)
[2023-09-28] MEDS ORDERED: POTASSIUM CHLORIDE 10 MEQ TABCR PO ONE (08:30)
--- NOTE | 2023-09-28 08:53 | NUR ---
Toy appears to be in a good mood no report of pain or discomfort. I floated patient back on his back from his right side. No further request, I did have to feed patient a bit of breakfast. He seems to not have an apeitite. Board has been updated and call light has been placed within patient reach.
--- NOTE | 2023-09-28 08:58 | NUR ---
patient appears to be in a good mood, no report of pain or discomfort. I floated patient on his back from his right side. Patient ate in fowlers position. I fed patient due to lack of appetite. Board has been updated and call light has been placed within patient reach.
--- NOTE | 2023-09-28 09:30 | NUR ---
ADMINISTERED MEDS WITH STUDENT TINO BARR. PT AWAKE BUT STATING HE DID NOT SLEEP AND IS TIRED. IV FLUSHED WELL.
[2023-09-28 09:47] VITALS: BP 156/77
[2023-09-28 09:55] VITALS: BP 156/77
--- NOTE | 2023-09-28 11:06 | NUR ---
FULL ASSESSMENT COMPLETE AND DOCUMENTED IN THE CHART. PATIENT IS LYING ON THEIR LEFT SIDE WITH A VISITOR SITTING ON THE COUCH. PATIENT IS ALERT AND ORIENTED TIMES FOUR. LUNG SOUNDS ARE CLEAR IN ALL LUNG HERNANDES BILATERALLY AND IS ON ROOM AIR. CPOX IS AT THE BEDSIDE AND THE SPO2 IS BETWEEN 93-98%. CARDIAC WITH DISTANT HEART TONES ON AUSCULTATION, RADIAL PULSES ARE STRONG BILATERALLY. SENSATION IS NOT INTACT ON BILATERAL LOWER EXTREMITIES. NUMBNESS AND TINGLING NOTED THROUGHOUT THE BODY PER PATIENT REPORT. BOWEL TONES ARE ACTIVE IN ALL FOUR QUADRANTS. PATIENT WITH NO COMPLAINTS OF PAIN AT THIS TIME. IV SITES WITH MEDICATION INFUSING AT THIS TIME. IV DRESSINGS ARE CLEAN, DRY, AND INTACT. REDNESS NOTED ON THE SCROTUM AND BUTTOCKS. SCARS NOTED ON THE BACK, LOWER EXTREMITIES, AND LEFT HIP. COLOSTOMY NOTED ON THE LLQ. PATIENT WITH SUPRABUPIC CATHETER AT BASELINE. PATIENT STATED NO FURTHER NEEDS AT THIS TIME. CALL LIGHT AND PERSONAL BELONGINGS ARE WITHIN REACH.
[2023-09-28] MEDS ORDERED: CALCIUM CARBONATE 500 MG CHEW PO PRN (11:45)
--- NOTE | 2023-09-28 12:13 | NUR ---
1200 INSULIN AND PRN TUMS ADMINISTERED PER THE EMAR. PATIENT IS RESTING ON THEIR LEFT SIDE AT THIS TIME. PATIENT WITH AT THE BEDSIDE. PATIENT GIVEN TWO CUPS OF ICE WATER. PATIENT STATED NO FURTHER NEEDS AT THIS TIME. CALL LIGHT AND PERSONAL BELONGINGS ARE WITHIN REACH.
--- NOTE | 2023-09-28 12:15 | NUR ---
SPOKE WITH MARC AT [facility], OKAY FOR PATIENT TO RETURN WHEN READY FOR DISCHARGE. WILL FAX UPDATES AND ORDERS WHEN COMPLETED.
[2023-09-28] MEDS ORDERED: CEFDINIR300 MG PO (13:43)
[2023-09-28] MEDS ORDERED: MELATONIN5 M5 PO (13:45)
[2023-09-28] MEDS ORDERED: TYLENOL EXTRA500 MG PO (14:09)
--- NOTE | 2023-09-28 14:29 | NUR ---
UR NOTE OBSERVATION 09/25/23 1403 EXPECTED LOS <2 MIDNIGHTS INPATIENT 09/26/23 1650 EXPECTED LOS >2 MIDNIGHTS PRIMARY INSURANCE: MEDICARE
[2023-09-28 14:39] VITALS: BP 151/83
== END 2023-09-28 14:50 | disposition home or self-care (01) | DRG 698 ==
LOC: ED 10:58 → MS 11:00
PROVIDERS: Emergency Medicine; ADMIT Family Medicine; ATTEND Family Medicine
DX: T83.518A Infection and inflammatory reaction due to other urinary catheter, initial encounter (principal); A41.9 Sepsis, unspecified organism; N39.0 Urinary tract infection, site not specified; N17.9 Acute kidney failure, unspecified; I10 Essential (primary) hypertension; E87.6 Hypokalemia; E83.42 Hypomagnesemia; B96.4 Proteus (mirabilis) (morganii) as the cause of diseases classified elsewhere; Z88.1 Allergy status to other antibiotic agents; Z88.5 Allergy status to narcotic agent; Z88.8 Allergy status to other drugs, medicaments and biological substances; E11.42 Type 2 diabetes mellitus with diabetic polyneuropathy; Z90.49 Acquired absence of other specified parts of digestive tract; Z79.891 Long term (current) use of opiate analgesic; Z79.82 Long term (current) use of aspirin; Z79.02 Long term (current) use of antithrombotics/antiplatelets; Z79.4 Long term (current) use of insulin; Z79.899 Other long term (current) drug therapy; E86.0 Dehydration; Z89.612 Acquired absence of left leg above knee; Y84.6 Urinary catheterization as the cause of abnormal reaction of the patient, or of later complication, without mention of misadventure at the time of the procedure
CPT/HCPCS: 36415; 71045; 80048; 80053; 81001; 83605; 83690; 83735; 84100; 85025; 87040; 87088; 93005; 93010; 96365; 96375; 99285-25; A9270; J0360; J0696; J0780; J1650; J1815; J1885; J2405; J3475; J3480; J3490; J7030; J7060

== ENCOUNTER 2023-11-03 04:03 | Inpatient (IN) | payer MEDICARE, OTHER ==
[~2023-11-03] VITALS: Ht 182.9 cm; Wt 122.0 kg
[~2023-11-03 04:03] MED LIST changes: +AMOXICILLIN500 MG PO; +JANUVIA100 MG PO; +JARDIANCE25 MG PO; +MELATONIN5 M5 PO; +POTASSIUM CHLO10 ME1 PO
[2023-11-03] MEDS ORDERED: ondansetron HCL 4 MG/2 ML VIAL IV ONE (04:15)
[2023-11-03] MEDS ORDERED: LACTATED RINGER'S 1,000 ML IV ONE (04:15)
[2023-11-03 04:44] LABS: BASOPHILS 0.3 % (0-2); EOSINOPHILS 0.5 % (0-6); HEMATOCRIT 50.5 % (35.0-50.0); HEMOGLOBIN 16.9 g/dL (12.0-18.0); LYMPHOCYTES 4.4 % (24-44); MCH 27.1 (27-36); MCHC 33.5 g/dl (30-36); MCV 80.9 fl (81-99); NEUTROPHILS 87.8 % (39-80); PLATELET COUNT 238 K/uL (140-440); RBC 6.24 M/ul (4.3-5.7)
[2023-11-03 04:47] LABS: BILIRUBIN, URINE NEGATIVE (negative); BLOOD/HGB, URINE LARGE (Negative); KETONE, URINE NEGATIVE (Negative); LEUK ESTERASE, URINE MODERATE (negative); NITRITE, URINE POSITIVE (negative); PH, URINE >=9.0 (5-7)
[2023-11-03 04:52] LABS: EPITHELIAL CELLS, URINE SQUAMOUS 1+ /lpf (0-1+)
[2023-11-03 04:53] LABS: WHITE BLOOD CELLS, URINE 0-1 /HPF (0-5)
[2023-11-03 04:54] LABS: BACTERIA, URINE 3+ /hpf (negative); CASTS, URINE NONE SEEN \\lpf; CRYSTALS, URINE AMORPHOUS PHOSPH 3+ (0-1+); REFLEX CULTURE, URINE Yes (No)
[2023-11-03] MEDS ORDERED: CEFTRIAXONE/SODIUM CHLORIDE 2 GM/100 ML PIGGYBACK IV ONE (05:00)
[2023-11-03 05:20] LABS: ALBUMIN 3.1 g/dL (3.4-5.0); ALBUMIN/GLOBULIN RATIO 0.67 (1.1-2.4); ANION GAP 13.7 (7-21); BILIRUBIN, TOTAL 1.1 ng/dL (0.2-1.0); BUN/CREATININE RATIO 19.29 (6.0-28.6); CALCIUM 10.4 mg/dL (8.5-10.1); CREATININE, SERUM 1.14 mg/dL (0.70-1.30); POTASSIUM 2.7 mmol/L (3.5-5.1); PROTEIN, TOTAL 7.7 g/dL (6.4-8.2)
[2023-11-03] MEDS ORDERED: CEFDINIR300 MG PO (05:43)
[2023-11-03] MEDS ORDERED: ONDANSETRON ODT8 MG PO (05:43)
[2023-11-03] MEDS ORDERED: POTASSIUM CHLORIDE 10 MEQ TABCR PO ONE (05:45)
[2023-11-03] MEDS ORDERED: K-TAB ER20 MEQ PO (05:45)
[2023-11-03] MEDS ORDERED: ONDANSETRON 4 MG HOME.PACK SL ONE (06:00)
[2023-11-03] MEDS ORDERED: CEFDINIR 300 MG HOME.PACK PO ONE (06:00)
[2023-11-03] MEDS ORDERED: POTASSIUM CHLORIDE 10 MEQ/100 ML BAG IV ONE (06:00)
[2023-11-03] MEDS ORDERED: KETOROLAC TROMETHAMINE 30 MG/ML VIAL IV ONE (07:15)
[2023-11-03] MEDS ORDERED: SODIUM CHLORIDE 0.9% 1,000 ML IV SCH (07:15)
[2023-11-03] MEDS ORDERED: MORPHINE SULFATE 4 MG/ML VIAL IV PRN (07:30)
[2023-11-03] MEDS ORDERED: ondansetron HCL 4 MG/2 ML VIAL IV PRN (07:30)
[2023-11-03] MEDS ORDERED: ENOXAPARIN SODIUM 40 MG/0.4 ML SYR SUB-Q SCH (09:00)
[2023-11-03] MEDS ORDERED: MICONAZOLE NITRATE 1 EA BTL TOP SCH (09:21)
[2023-11-03 09:55] VITALS: BP 169/62
[2023-11-03] MEDS ORDERED: MACRODANTIN50 MG PO (10:02)
[2023-11-03] MEDS ORDERED: PANTOPRAZOLE SODIUM 40 MG/10 ML VIAL IV SCH (10:08)
[2023-11-03] MEDS ORDERED: ASPIRIN81 MG PO (10:11)
[2023-11-03] MEDS ORDERED: IBLOOD GLUCOSE TEST STRIP 1 EA TEST XX PRN (11:00)
[2023-11-03] MEDS ORDERED: DEXTROSE 50% 50 ML SYR IV PRN ×2 (11:00)
[2023-11-03] MEDS ORDERED: GLUCAGON,HUMAN RECOMBINANT 1 MG/ML VIAL SUB-Q PRN (11:00)
[2023-11-03] MEDS ORDERED: DEXTROSE 5% 1,000 ML IV PRN (11:00)
[2023-11-03] MEDS ORDERED: INSULIN LISPRO 100 UNIT/ML ML SUB-Q SCH (12:00)
[2023-11-03] MEDS ORDERED: PHARMACY RENAL DOSE ADJUSTMENT 1 DOSE MISC PO SCH (12:00)
[2023-11-03] MEDS ORDERED: IBLOOD GLUCOSE TEST STRIP 1 EA TEST XX SCH (12:00)
[2023-11-03 12:43] LABS: BILIRUBIN, URINE NEGATIVE (negative); BLOOD/HGB, URINE MODERATE (Negative); KETONE, URINE SMALL (Negative)
[2023-11-03 12:44] LABS: LEUK ESTERASE, URINE POSITVE (negative); NITRITE, URINE NEGATIVE (negative); PH, URINE 7.5 (5-7)
[2023-11-03 12:45] LABS: BACTERIA, URINE 1+ /hpf (negative); CASTS, URINE NONE SEEN \\lpf; COLLECTION TYPE, URINE CATH; CRYSTALS, URINE NONE SEEN (0-1+); EPITHELIAL CELLS, URINE SQUAMOUS 1+ /lpf (0-1+); REFLEX CULTURE, URINE Yes (No); WHITE BLOOD CELLS, URINE >50 /HPF (0-5)
[2023-11-03] MEDS ORDERED: LIDOCAINE 2% VISCOUS 6 ML SYR TOP ONE (12:45)
[2023-11-03 13:19] VITALS: BP 168/62
[2023-11-03 18:13] VITALS: BP 179/71
[2023-11-03 20:57] VITALS: BP 168/75
[2023-11-03] MEDS ORDERED: MELATONIN 3 MG TAB PO SCH (21:00)
[2023-11-03] MEDS ORDERED: ACETAMINOPHEN 500 MG TAB PO PRN (22:45)
[2023-11-03 23:22] VITALS: BP 168/75
[2023-11-04] VITALS (8 sets, daily range): BP systolic 137–186; BP diastolic 56–82
[2023-11-04 05:51] LABS: BASOPHILS 0.3 % (0-2); EOSINOPHILS 0.5 % (0-6); HEMATOCRIT 40.7 % (35.0-50.0); HEMOGLOBIN 13.2 g/dL (12.0-18.0); LYMPHOCYTES 5.8 % (24-44); MCH 26.6 (27-36); MCHC 32.4 g/dl (30-36); MCV 81.9 fl (81-99); MONOCYTES 9.5 % (0-12); NEUTROPHILS 83.9 % (39-80); PLATELET COUNT 217 K/uL (140-440); RBC 4.97 M/ul (4.3-5.7); RDW 16.7 (10.5-15.0)
[2023-11-04 06:00] LABS: ANION GAP 12.9 (7-21); BUN/CREATININE RATIO 23.95 (6.0-28.6); CALCIUM 9.5 mg/dL (8.5-10.1); CREATININE, SERUM 0.96 mg/dL (0.70-1.30); MAGNESIUM 1.7 mg/dL (1.8-2.4); POTASSIUM 2.9 mmol/L (3.5-5.1)
[2023-11-04] MEDS ORDERED: CEFTRIAXONE/SODIUM CHLORIDE 2 GM/100 ML PIGGYBACK IV SCH (09:00)
[2023-11-04] MEDS ORDERED: MAGNESIUM SULFATE 4 GM/100 ML BAG IV ONE (09:15)
[2023-11-04] MEDS ORDERED: POTASSIUM CHLORIDE 40 MEQ,LIDOCAINE HCL 1% 40 MG in DEXTROSE 5% 500 ML IV ONE (09:15)
[2023-11-04 17:19] LABS: INFLUENZA B NAA NEGATIVE (NEGATIVE); RESPIRATORY SYNCYTIAL VIR NAA NEGATIVE (NEGATIVE)
[2023-11-05] VITALS (8 sets, daily range): BP systolic 133–158; BP diastolic 51–67
[2023-11-05 08:28] LABS: BASOPHILS 0.6 % (0-2); EOSINOPHILS 2.8 % (0-6); HEMATOCRIT 36.7 % (35.0-50.0); HEMOGLOBIN 12.4 g/dL (12.0-18.0); LYMPHOCYTES 12.9 % (24-44); MCH 27.1 (27-36); MCHC 33.7 g/dl (30-36); MCV 80.5 fl (81-99); MONOCYTES 9.8 % (0-12); NEUTROPHILS 73.9 % (39-80); PLATELET COUNT 211 K/uL (140-440); RBC 4.55 M/ul (4.3-5.7); RDW 16.8 (10.5-15.0)
[2023-11-05 08:38] LABS: ANION GAP 9.8 (7-21); BUN/CREATININE RATIO 16.41 (6.0-28.6); CALCIUM 9.4 mg/dL (8.5-10.1); CREATININE, SERUM 0.67 mg/dL (0.70-1.30); MAGNESIUM 1.8 mg/dL (1.8-2.4); POTASSIUM 2.8 mmol/L (3.5-5.1)
[2023-11-05] MEDS ORDERED: PANTOPRAZOLE SODIUM 40 MG TABEC PO SCH (09:00)
[2023-11-05] MEDS ORDERED: MAGNESIUM SULFATE 2 GM/50 ML BAG IV ONE (10:15)
[2023-11-05] MEDS ORDERED: POTASSIUM CHLORIDE 40 MEQ,LIDOCAINE HCL 1% 40 MG in DEXTROSE 5% 500 ML IV ONE (10:15)
[2023-11-05] MEDS ORDERED: HYDROCODONE/ACETA 7.5/325 TAB PO PRN (22:15)
[2023-11-06 04:00] VITALS: BP 157/73
[2023-11-06 04:14] VITALS: BP 157/73
[2023-11-06 05:40] LABS: BASOPHILS 0.8 % (0-2); EOSINOPHILS 2.6 % (0-6); HEMOGLOBIN 12.4 g/dL (12.0-18.0); LYMPHOCYTES 15.4 % (24-44); MCH 27.1 (27-36); MCHC 33.4 g/dl (30-36); MCV 81.2 fl (81-99); MONOCYTES 10.8 % (0-12); NEUTROPHILS 70.4 % (39-80); PLATELET COUNT 215 K/uL (140-440); RBC 4.56 M/ul (4.3-5.7); RDW 16.4 (10.5-15.0)
[2023-11-06 06:02] LABS: ANION GAP 11.9 (7-21); BUN/CREATININE RATIO 12.85 (6.0-28.6); CALCIUM 9.1 mg/dL (8.5-10.1); CREATININE, SERUM 0.7 mg/dL (0.70-1.30); POTASSIUM 2.9 mmol/L (3.5-5.1)
[2023-11-06] MEDS ORDERED: POTASSIUM CHLORIDE 10 MEQ TABCR PO SCH (07:00)
[2023-11-06] MEDS ORDERED: MAGNESIUM SULFATE 2 GM/50 ML BAG IV ONE ×2 (07:00→12:00)
[2023-11-06 09:35] VITALS: BP 161/67
[2023-11-06 10:07] VITALS: BP 161/67
[2023-11-06 11:47] LABS: ANION GAP 10.2 (7-21); BUN/CREATININE RATIO 13.11 (6.0-28.6); CALCIUM 9.1 mg/dL (8.5-10.1); CREATININE, SERUM 0.61 mg/dL (0.70-1.30); MAGNESIUM 1.9 mg/dL (1.8-2.4); POTASSIUM 3.2 mmol/L (3.5-5.1)
[2023-11-06] MEDS ORDERED: POTASSIUM CHLORIDE 20 MEQ/15 ML CUP PO ONE (12:15)
[2023-11-06 13:16] VITALS: BP 176/80
[2023-11-06 14:39] LABS: ANION GAP 12.9 (7-21); BUN/CREATININE RATIO 18.96 (6.0-28.6); CALCIUM 9.4 mg/dL (8.5-10.1); CREATININE, SERUM 0.58 mg/dL (0.70-1.30); MAGNESIUM 2.4 mg/dL (1.8-2.4); POTASSIUM 3.9 mmol/L (3.5-5.1)
[2023-11-06] MEDS ORDERED: CEFDINIR300 MG PO (15:10)
[2023-11-06 15:39] VITALS: BP 163/79
== END 2023-11-06 16:03 | disposition home or self-care (01) | DRG 699 ==
LOC: ED 04:03 → MS 04:04
PROVIDERS: Family Medicine; Internal Medicine; ADMIT Internal Medicine; ATTEND Internal Medicine
DX: T83.511A Infection and inflammatory reaction due to indwelling urethral catheter, initial encounter (principal); G82.20 Paraplegia, unspecified; N39.0 Urinary tract infection, site not specified; N31.9 Neuromuscular dysfunction of bladder, unspecified; E86.0 Dehydration; E87.6 Hypokalemia; Y84.6 Urinary catheterization as the cause of abnormal reaction of the patient, or of later complication, without mention of misadventure at the time of the procedure; I10 Essential (primary) hypertension; E11.42 Type 2 diabetes mellitus with diabetic polyneuropathy; Z90.49 Acquired absence of other specified parts of digestive tract; Z98.890 Other specified postprocedural states; Z93.6 Other artificial openings of urinary tract status; Z88.1 Allergy status to other antibiotic agents; Z88.8 Allergy status to other drugs, medicaments and biological substances; Z88.5 Allergy status to narcotic agent; Z79.899 Other long term (current) drug therapy; Z79.2 Long term (current) use of antibiotics; Z79.4 Long term (current) use of insulin; Z79.82 Long term (current) use of aspirin
CPT/HCPCS: 36415; 51798; 80048; 80053; 81001; 83605; 83735; 85025; 87088; 87502; A9270; C9113; J0696; J1650; J1815; J1885; J2270; J2405; J3475; J3480; J3490; J7030; J7060; J7121; U0002

== ENCOUNTER 2025-01-31 14:54 | Inpatient (IN) | payer MEDICARE, OTHER ==
[~2025-01-31] VITALS: Ht 182.9 cm; Wt 120.6 kg
[~2025-01-31 14:54] MED LIST changes: +K-TAB ER20 MEQ PO; +MACRODANTIN50 MG PO; +ONDANSETRON ODT8 MG PO; -POTASSIUM CHLO10 ME1 PO; +POTASSIUM CHLO20 ME2 PO
[2025-01-31] MEDS ORDERED: levoFLOXacin 500 MG PIGGYBACK IV ONE (15:15)
[2025-01-31 15:28] LABS: BLOOD/HGB, URINE MODERATE (Negative); KETONE, URINE NEGATIVE (Negative); LEUK ESTERASE, URINE MODERATE (negative); NITRITE, URINE NEGATIVE (negative)
[2025-01-31 15:33] LABS: BACTERIA, URINE 4+ /hpf (negative); CASTS, URINE NONE SEEN \\lpf; EPITHELIAL CELLS, URINE SQUAMOUS 1+ /lpf (0-1+); REFLEX CULTURE, URINE Yes (No)
[2025-01-31 15:34] LABS: CRYSTALS, URINE AMORPHOUS URATES 1+ (0-1+)
--- NOTE | 2025-01-31 15:50 | NUR ---
LISA 1535: THIS RN GOES DOWN FOR A WOUND CONSULT OF THE RIGHT ISCHIUM. HE WAS SENT IN VIA EMS FROM [facility] DUE TO A WORSENING WOUND THAT IS BEING MANAGED BY [facility] ([facility]). [facility] RN WENT OUT TO [facility] TO ASSESS THE WOUND AND REQUESTED THE PT TO BE SENT OUT. THE OLD DRESSING IS REMOVED. THE WOUND HAS EXTREMELY MACERATED EDGES WITH GREYISH/BLACK TO DEEP RED TISSUE AROUND THE EDGES AND IN THE BASE. THE WOUND HAS VASHE SOAKED GAUZE APPLIED TO THE AREA FOR ABOUT 3 MINUTES, THEN IT IS FURTHER CLEANSED WITH THE VASHE SOAKED GAUZE. THE WOUND IS FRIABLE AND LIGHTLY BLEEDING WITH CLEANING AND MEASURING. THE WOUND MEASURES 4CM X 3.4CM X 1.3CM. THE WOUND IS PHOTOGRAPHED. A DEBRIDEMENT IS RECOMMENDED AT THIS TIME TO FULLY CLEAN THE AREA UP. THIS RN COULD PERFORM CSWD, BUT NOT AT THE EXTENT THAT THIS WOUND WOULD NEED TO REMOVE ALL NON-VIABLE TISSUE. IRENE Dubois RN NOTIFIED THAT A SURGICAL DEBRIDEMENT IS RECOMMENDED AT THIS TIME.
[2025-01-31 16:05] LABS: BASOPHILS 0.6 % (0.2-1.2); EOSINOPHILS 4.8 % (0.8-7.0); LYMPHOCYTES 16.5 % (21.8-53.1); MCH 28.3 PG (25.7-32.2); MCHC 32.8 g/dL (32.3-36.5); MCV 86.4 fL (79.0-92.2); MONOCYTES 9.6 % (5.3-12.2); NEUTROPHILS 68.0 % (34.0-67.9); RBC 5.37 M/uL (4.63-6.08)
[2025-01-31 16:21] LABS: ALT (SGPT) 10.0 U/L (14-59); AST (SGOT) 8.0 U/L (15-37); GLOMERULAR FILTRATION RATE,EST 99.0 mL/min (>60); PROTEIN, TOTAL 6.6 g/dL (6.4-8.2); UREA NITROGEN 18.0 mg/dL (7-18)
[2025-01-31] MEDS ORDERED: INSULIN LISPRO 100 UNIT/ML ML SUB-Q SCH (17:00)
[2025-01-31] MEDS ORDERED: ACETAMINOPHEN 325 MG TAB PO PRN (17:00)
[2025-01-31] MEDS ORDERED: IBLOOD GLUCOSE TEST STRIP 1 EA TEST VI SCH (17:00)
[2025-01-31] MEDS ORDERED: SODIUM CHLORIDE 0.9% 1,000 ML IV SCH (17:00)
[2025-01-31 18:05] VITALS: BP 140/120
--- NOTE | 2025-01-31 19:40 | NUR ---
PER SHIFT REPORT, SUPRAPUBIC CATHETER WAS NOT CHANGED IN THE ER AND URINE SAMPLE SENT FROM CURRENT CATHETER-LAST CHANGED 4 DAYS AGO. THIS RN ON PHONE WITH DR ALONZO. RN CLARIFIED IF MD WANTED NURSING STAFF TO CHANGE OUT CURRENT SUPRAPUBIC CATHETER. PER DR ALONZO, LEAVE CURRENT SUPRAPUBIC CATHETER IN PLACE AND MD PLANS TO "READDRESS IT TOMORROW". PRIMARY RN TOYA MADE AWARE AND UPDATED.
--- NOTE | 2025-01-31 19:46 | NUR ---
RECEIVED REPORT FROM TINO CRENSHAW. PATIENT RESTING IN BED TALKING WITH VISITING FAMILY MEMBERS. RESPIRATIONS EVEN AND UNLABORED. HE DENIES ANY NEEDS, CALL LIGHT IN REACH.
[2025-01-31 20:20] VITALS: BP 163/65
[2025-01-31 20:43] VITALS: BP 163/65
--- NOTE | 2025-01-31 21:00 | NUR ---
IN ROOM TO ASSESS PATIENT, NEW IV PLACED ON PATIENT LEFT FOREARM. FLUSHES WITHOUT DIFFICULTY, IVF INFUSING WITHOUT DIFFICULTY. ASSESSMENT COMPLETED, SCHEDULED MEDICATIONS GIVEN PER ORDER. PATIENT REPOSITIONED IN BED, HOB LOWERED PER PATIENT REQUEST. GIVEN DECAF COFFEE PER REQUEST. PATIENT DENIES ANY OTHER NEEDS, CALL LIGHT IN REACH.
--- NOTE | 2025-01-31 22:45 | NUR ---
ROUNDED ON PATIENT, WARM BLANKET GIVEN TO PATIENT PER REQUEST. RESPIRATIONS EVEN AND UNLABORED. HE DENIES ANY FURTHER NEEDS, CALL LIGHT IN REACH
[2025-02-01] VITALS (10 sets, daily range): BP systolic 157–176; BP diastolic 62–76
--- NOTE | 2025-02-01 02:10 | NUR ---
ROUNDED ON PATIENT, PATIENT RESTING WITH EYES CLOSED, RESPIRATIONS EVEN AND UNLABORED. NO NEEDS IDENTIFIED, CALL LIGHT IN REACH
--- NOTE | 2025-02-01 02:47 | NUR ---
CALL LIGHT ANSWERED, PATIENT REPOSITIONED PER REQUEST. HE DENIES ANY OTHER NEEDS, CALL LIGHT IN REACH
--- NOTE | 2025-02-01 04:34 | NUR ---
ROUNDED ON PATIENT, NEW IVF BAG HUNG, WILLIS BAG EMPTIED. PATIENT RESTING WITH EYES CLOSED ON HIS RIGHT SIDE, RESPIRATIONS EVEN AND UNLABORED. NO NEEDS IDENTIFIED, CALL LIGHT IN REACH
[2025-02-01 05:47] LABS: BASOPHILS 0.6 % (0.2-1.2); EOSINOPHILS 4.9 % (0.8-7.0); LYMPHOCYTES 24.2 % (21.8-53.1); MCH 28.3 PG (25.7-32.2); MCHC 32.6 g/dL (32.3-36.5); MCV 86.9 fL (79.0-92.2); MONOCYTES 9.3 % (5.3-12.2); NEUTROPHILS 60.7 % (34.0-67.9); RBC 5.12 M/uL (4.63-6.08)
[2025-02-01 05:59] LABS: GLOMERULAR FILTRATION RATE,EST 101.0 mL/min (>60); UREA NITROGEN 15.0 mg/dL (7-18)
--- NOTE | 2025-02-01 06:01 | NUR ---
VS OBTAINED AND RECORDED. PATIENT RESTING, RESPIRATIONS EVEN AND UNLABORED. NO NEEDS IDENTIFIED, CALL LIGHT IN REACH.
--- NOTE | 2025-02-01 07:18 | NUR ---
REPORT RECIEVED FROM TINO PITTMAN. PATIENT RESTING IN BED ON HIS RIGHT SIDE. PATIENT DENIES ANY NEEDS AT THIS TIME. CALL LIGHT AND PERSONAL BELONGINGS ARE WITHIN REACH.
--- NOTE | 2025-02-01 08:10 | NUR ---
PATIENT RESTING IN BED, IV ALARMING FOR OCCLUSION. IV ASSESSED AND NOTED TO BE WNL. PATIENT WITHOUT ANY NEEDS AT THIS TIME. CALL LIGHT AND PERSONAL BELONGINGS ARE WITHIN REACH.
--- NOTE | 2025-02-01 08:25 | NUR ---
PATIENT IN BED AT THIS TIME. AUDIOMETRIST CHARTED HOURLY ROUNDS AND BLOODSUGAR. CALL LIGHT WITHIN REACH, NO FURTHER NEEDS AT THIS TIME.
[2025-02-01] MEDS ORDERED: levoFLOXacin 750 MG PIGGYBACK IV SCH (09:00)
[2025-02-01] MEDS ORDERED: PANTOPRAZOLE SODIUM 40 MG TABEC PO SCH (09:00)
--- NOTE | 2025-02-01 09:05 | NUR ---
PATIENT MEDICATED PER EMAR. PATIENT SITTING UP IN BED EATING BREAKFAST. FRESH ICE WATER PROVIDED. PATIENT DENIES ANY PAIN AT THIS TIME. VITAL SIGNS TAKEN AND ARE STABLE. PATIENT WITHOUT FURTHER NEEDS AT THIS TIME. CALL LIGHT AND PERSONAL BELONGINGS ARE WITHIN REACH.
[2025-02-01] MEDS ORDERED: COZAAR50 MG PO (09:15)
[2025-02-01] MEDS ORDERED: LOPERAMIDE2 M1 PO (09:19)
[2025-02-01] MEDS ORDERED: IBU800 MG PO (09:20)
[2025-02-01] MEDS ORDERED: MELATONIN5 M2 PO (09:21)
[2025-02-01] MEDS ORDERED: ONDANSETRON HCL8 MG PO (09:21)
[2025-02-01] MEDS ORDERED: NYSTOP60 GM TOP (09:23)
--- NOTE | 2025-02-01 09:25 | NUR ---
Spoke with Pedrito. He resides at [facility] and feels he does well. Pt has a sp cath and ostomy. He also has wounds on his buttocks and the above are managed by [facility]. Pt is also a Parapal[place].Chart was sent to [facility] the am per their request. Pt denies needs denies financial concerns or safety concerns. Pt plans on return to [facility] when discharged. He will need his powerchair picked up to use the van home.
--- NOTE | 2025-02-01 09:26 | NUR ---
MED REC COMPLETE
--- NOTE | 2025-02-01 10:15 | NUR ---
PATIENT ASSESSMENT COMPLETED. BOWLING ALLEY OPERATOR IN ROOM CHARTING INTAKE AND OUTPUT. PATIENT IV INFUSING PER ORDER. PATIENT WITHOUT FURTHER NEEDS AT THIS TIME. CALL LIGHT AND PERSONAL BELONGINGS ARE WITHIN REACH.
[2025-02-01] MEDS ORDERED: ASPIRIN 81 MG CHEW PO SCH (10:54)
[2025-02-01] MEDS ORDERED: CLOPIDOGREL BISULFATE 75 MG TAB PO SCH (10:55)
[2025-02-01] MEDS ORDERED: LOSARTAN POTASSIUM 50 MG TAB PO SCH (10:56)
[2025-02-01] MEDS ORDERED: MELATONIN 1 MG TAB PO PRN (11:00)
[2025-02-01] MEDS ORDERED: ACETAMINOPHEN 500 MG TAB PO PRN (11:00)
--- NOTE | 2025-02-01 11:42 | NUR ---
UR CLINICAL REVIEW: 2MN SAMIA, MEETS OBS FOR UTI AND SACRAL ULCERS SURGICAL CONSULT, IV ANTIBIOTICS, IV FLUIDS MEDICARE OBS 01/31/2025 @ 1703 ORDER MATCHES REG NO AUTH REQUIRED PER MEDICARE RULES DC TO HOME WHEN MEDICALLY READY, WITH HOME HEALTH 02/02/2025
--- NOTE | 2025-02-01 11:43 | NUR ---
PT NOT AVAILABLE FOR VISIT. PROVIDED PRAYER.
[2025-02-01] MEDS ORDERED: PHARMACY RENAL DOSE ADJUSTMENT 1 DOSE MISC PO SCH (12:00)
--- NOTE | 2025-02-01 12:10 | NUR ---
PATIENT MEDICATED PER EMAR. VITAL SIGNS TAKEN AND ARE STABLE. FRESH WATER PROVIDED. PATIENT WITHOUT FURTHER NEEDS. CALL LIGHT AND PERSONAL BELONGINGS ARE WITHIN REACH.
--- NOTE | 2025-02-01 13:00 | NUR ---
PATIENT RESTING IN BED, FRESH COFFEE PROVIDED. PATIENT WITHOUT FURTHER NEEDS AT THIS TIME. CALL LIGHT AND PERSONAL BELONGINGS ARE WITHIN REACH.
--- NOTE | 2025-02-01 14:05 | NUR ---
PATIENT REPORTS HAVING BODYACHES. PRN DOSE OF TYLENOL AVAILABLE. DELEGATED TO TINO FORMAN FOR MEDICATION ADMINISTRATION.
--- NOTE | 2025-02-01 15:00 | NUR ---
GAVE PATIENT A COMPLETE BED BATH. PATIENT DIDN'T WANT TO WASH HIS HAIR. HE DID HIS AM CARE THIS MORING. NEW GOWN. PATIENT IS WATCHING STUFF ON HIS PHONE. PUT A PILLOW CASE UNDER HIS BELLY.
--- NOTE | 2025-02-01 15:27 | NUR ---
PT RESTING IN BED TALKING TO HEATING PLANT SUPERINTENDENT IN ROOM. PT STATES THAT THE TYLENOL BROUGHT HIS BODYACHES AND MENDES DOWN TO A 0/10. NO REQUESTS AT THIS TIME. CALL LIGHT WITHIN REACH.
--- NOTE | 2025-02-01 16:30 | NUR ---
PATIENT RESTING IN BED AND REPORTS BODY ACHES ARE GONE SINCE MEDICATION ADMINSTRATION. FRESH COFFEE PROVIDED. PATIENT IS WITHOUT FURTHER NEEDS AT THIS TIME. CALL LIGHT AND PERSONAL BELONGINGS ARE WITHIN REACH.
--- NOTE | 2025-02-01 16:56 | NUR ---
PEDIATRIC DENTIST IN ROOM ASSISTING PATIENT AND CHECKING CBG
--- NOTE | 2025-02-01 19:15 | NUR ---
REPORT RECEIVED FROM RN. PATIENT IN BED WITH HOB RAISED, EYES OPEN, CEHST RISE EVEN AND UNLABORED. CALL LIGHT AND PERSONAL BELONGINGS IN REACH OF PATIENT NO APPARENT NEEDS NOTED AT THIS TIME.
--- NOTE | 2025-02-01 20:32 | NUR ---
STEWARD/STEWARDESS SMOKE ROOM OBTAINED VITALS AND I&O. PT REQUESTING TYLENOL. RN NOTIFED. PT STATES NO FURTHER NEEDS AT THIS TIME. CALL LIGHT WITHIN REACH.
[2025-02-01] MEDS ORDERED: CHLORTHALIDONE 25 MG TAB PO SCH (21:00)
[2025-02-01] MEDS ORDERED: ATORVASTATIN 40 MG TAB PO SCH (21:00)
--- NOTE | 2025-02-01 21:50 | NUR ---
PATIENT IN BED WITH HOB RAISED, EYES OPEN, CHEST RISE EVEN AND UNLABORED. SCHEDULED MEDICATIONS ADMINISTERED, ASSESMENT AND VITAL SIGNS COMPLETE. IV FLUID INFUSING WITHOUT DIFFICULTY, PATIENT DENIES CONCERNS AT THIS TIME.
--- NOTE | 2025-02-01 23:05 | NUR ---
PATIENT CALL LIGHT ANSWERED. ASSISTED PATIENT TO REPOSITION IN BED. PATIENT DENIES FURTHER CONCERNS AT THIS TIME. IV FLUID INFUSING WITHOUT DIFFICULTY. CALL LIGHT AND PERSONAL BELONGINGS IN REACH OF PATIENT.
[2025-02-02] VITALS (10 sets, daily range): BP systolic 130–175; BP diastolic 59–72
--- NOTE | 2025-02-02 01:21 | NUR ---
PATIENT IN BED, EYES CLOSED, CHEST RISE EVEN AND UNLABORED. IV FLUID INFUSING WITHOUT DIFFICULTY. CALL LIGHT AND PERSONAL BELONGINGS IN REACH OF PATIENT. NO APPARENT NEEDS NOTED AT THIS TIME.
--- NOTE | 2025-02-02 04:03 | NUR ---
PATIENT IN BED, EYES CLOSED, CHEST RISE EVEN AND UNLABORED. CALL LIGHT AND PERSONAL BELONGINGS IN REACH OF PATIENT. IV FLUID INFUSING WITHOUT DIFFICULTY. NO APPARENT NEEDS NOTED AT THIS TIME.
[2025-02-02 05:28] LABS: BASOPHILS 0.6 % (0.2-1.2); EOSINOPHILS 4.2 % (0.8-7.0); LYMPHOCYTES 25.7 % (21.8-53.1); MCH 28.5 PG (25.7-32.2); MCHC 32.7 g/dL (32.3-36.5); MCV 87.3 fL (79.0-92.2); MONOCYTES 9.1 % (5.3-12.2); NEUTROPHILS 60.0 % (34.0-67.9); RBC 5.19 M/uL (4.63-6.08)
--- NOTE | 2025-02-02 05:30 | NUR ---
PATIENT IN BED, EYES OPEN, CHEST RISE EVEN AND UNLABORED. VITAL SIGNS AND URINARY ASSESMENT COMPLETED. NEW BAG OF IV FLUID STARTED. PATIENT DENIES FURTHER CONCERNS AT THIS TIME. CALL LIGHT AND PERSONAL BELONGINGS IN REACH OF PATIENT. OV FLUID INFUSING WITHOUT DIFFICULTY. PATIENT DENIES CONCERS AT THIS TIME.
[2025-02-02 05:47] LABS: ALT (SGPT) 12.0 U/L (14-59); AST (SGOT) 10.0 U/L (15-37); GLOMERULAR FILTRATION RATE,EST 104.0 mL/min (>60); PROTEIN, TOTAL 6.2 g/dL (6.4-8.2); UREA NITROGEN 19.0 mg/dL (7-18)
--- NOTE | 2025-02-02 07:03 | NUR ---
Pt report received from RN's Bryant. Pt is resting in bed with eyes closed. Breathing is regular, even, and non-labored. White board updated. Side rails up x4, call light in reach.
--- NOTE | 2025-02-02 08:00 | NUR ---
INTO SEE PATIENT. PATIENT WILL GO BACK TO [facility] WHEN MEDICALLY READY FOR DISCHARGE.
--- NOTE | 2025-02-02 10:00 | NUR ---
DISCHARGE REVIEW: CHANGE SUPRAPUBIC CATHETER, TRANSITION TO ORAL ANTIBITIOCS RETURN TO [facility] WITH HOME HEALTH NEEDS SURGICAL CONSULT FOR WOUNDS, WILL COMPLETE OUTPATIENT ADD: 02/02/2025
[2025-02-02] MEDS ORDERED: ENOXAPARIN SODIUM 40 MG/0.4 ML SYR SUB-Q SCH (10:15)
--- NOTE | 2025-02-02 10:30 | NUR ---
UR CLINICAL REVIEW: 2 MN SAMIA, MEETS INPT IV ANTIBIOTICS, SURGICAL CONSULT WITH POTENTIAL WOUND DEBRIDEMENT. MEDICARE INPT 02/02/2025 @ 1006 ORDER MATCHES REG NO AUTH REQUIRED PER MEDICARE RULES DC TO HOME WHEN MEDICALLY READY, WITH HOME HEALTH
--- NOTE | 2025-02-02 11:29 | NUR ---
Pt requested to remove all of the extra tape from his IV tubing on his arm. Removed all the tape, and changed the IV site dressing as well, as there was a lot of extra tape. Dressing changed, IV patent, tubing secured with coban rather than tape, at the pt's request.
--- NOTE | 2025-02-02 17:30 | NUR ---
Suprapubic catheter and system changed out. Pt states he uses a 22fr; however, the current catheter is a 20fr and the 22fr would not fit. Dr. Medina was passing by the room and I requested his assistance. He and Tape Sewer, Mark obtained a 20fr from the OR and Dr. Medina and RN Nadege came to assist. Dr. Medina was able to insert the 20fr and obtained cloudy yellow urine. A specimen was collected and sent to the lab per Dr. Lake's order for a repeat culture. Pt tolerated procedure well. Drain sponge applied around insertion site. Dinner tray at bedside table. Pt denies further needs at this time. At pt's request, pt's credit card was removed from his lock box and handed to his daughter who had arrived to pick it up at his request.
[2025-02-02 18:16] LABS: BLOOD/HGB, URINE LARGE (Negative); KETONE, URINE NEGATIVE (Negative); LEUK ESTERASE, URINE MODERATE (negative); NITRITE, URINE NEGATIVE (negative)
[2025-02-02 18:27] LABS: BACTERIA, URINE 3+ /hpf (negative); CASTS, URINE NONE SEEN \\lpf; CRYSTALS, URINE NONE SEEN (0-1+); EPITHELIAL CELLS, URINE SQUAMOUS 2+ /lpf (0-1+); REFLEX CULTURE, URINE No (No)
--- NOTE | 2025-02-02 19:06 | NUR ---
PATIENT WAS IN BED AT THIS TIME, TINO GROSS AND I CHANGED PATIENTS LINENS AND GOWN, CALL LIGHT WITH IN REACH AND NOTHING ELSE NEEDED AT THIS TIME.
--- NOTE | 2025-02-02 20:15 | NUR ---
REPORT RECEIVED FROM KINGSTON JIMÉNEZ. PATIENT IN BED WITH HOB RIASED, EYES OPEN, CHEST RISE EVEN AND UNLABORED. CALL LIGHT AND PERSONAL BELONGINGS IN REACH OF PATIENT. PATIENT DENIES CONCERNS AT THIS TIME.
--- NOTE | 2025-02-02 21:00 | NUR ---
PATIENT IN BED WITH HOB RAISED, EYES OPEN, CHEST RISE EVEN AND UNLABORED. CALL LIGHT AND PERSONAL BELONGINGS IN REACH OF PATIENT. ASSESMENT COMPLETED. PATIENT DENIES CONCERNS AT THIS TIME.
--- NOTE | 2025-02-02 23:00 | NUR ---
PATIENT HAS URINATED. ASSISTED PATIENT TO RESTROOM THEN BACK TO CHAIR. PATIENT REPORTS HE WAS HAVING NAUSEA WHEN IN THE BED, IT HAS RESOLVED NOW. PATIENT REPORTS HIS MOTHER WILL BE UNABLE TO GIVE HIM A RIDE AT THIS TIME OF NIGHT. PATIENT REQUESTS TO DISCUSS DISCHARGE IN THE MORNING. PATIENT IS TOLERATING CLEAR LIQUIDS WELL. I PROVIDED PATIENT WITH SANDWICH TO EAT SLOWLY. PATIENT DENIES FURTHER CONCERNS AT THIS TIME. CPOX IN PLACE, IV FLUID INFUSING WITHOUT DIFFICULTY. CALL LIGHT AND PERSONAL BELONGINGS IN REACH OF PATIENT.
--- NOTE | 2025-02-02 23:30 | NUR ---
PATIENT IN BED, EYES CLOSED, CHEST RISE EVEN AND UNALBORED. IV FLUID INFUSING WITHOUT DIFFICULTY. NO APPARENT NEEDS NOTED AT THIS TIME.
[2025-02-03] VITALS (10 sets, daily range): BP systolic 156–174; BP diastolic 64–73
--- NOTE | 2025-02-03 | NUR ---
PATIENT IN BED, EYES CLOSED, CHEST RISE EVEN AND UNLABORED. CALL LIGHT AND PERSONAL BELONGINGS IN REACH. NO APPARENT NEEDS NOTED AT THIS TIME.
--- NOTE | 2025-02-03 00:43 | NUR ---
PATIENT IN BED, EYES CLOSED, CHEST RISE EVEN AND UNLABORED. CALL LIGHT AND PERSONAL BELONGINGS IN REACH OF PATIENT. NO APPARENT NEEDS NOTED AT THIS TIME.
--- NOTE | 2025-02-03 01:40 | NUR ---
PATIENT IN BED, EYES CLOSED, CHEST RISE EVEN AND UNLABORED. CALL LIGHT AND PERSONAL BELONGINGS IN REACH OF PATIENT. NO APPARENT NEEDS NOTED AT THIS TIME.
--- NOTE | 2025-02-03 03:02 | NUR ---
PATIENT IN BED, EYES CLOSED, CHEST RISE EVEN AND UNALBORED. CALL LIGHT AND PERSONAL BELONGINGS IN REACH OF PATIENT. IV FLUID INFUSING WITHTOUT DIFFICULTY. NO APPARENT NEEDS NOTED AT THIS TIME.
--- NOTE | 2025-02-03 04:27 | NUR ---
PATIENT IN BED, EYES CLOSED, CHEST RISE EVEN AND UNLABORED. CALL LIGHT AND PERSONAL BELONGINGS IN REACH OF PATIENT. NO APPARENT NEEDS NOTED AT THIS TIME.
[2025-02-03 05:45] LABS: BASOPHILS 0.5 % (0.2-1.2); EOSINOPHILS 4.2 % (0.8-7.0); LYMPHOCYTES 26.8 % (21.8-53.1); MCH 28.9 PG (25.7-32.2); MCHC 33.8 g/dL (32.3-36.5); MCV 85.4 fL (79.0-92.2); MONOCYTES 8.0 % (5.3-12.2); NEUTROPHILS 60.0 % (34.0-67.9); RBC 5.06 M/uL (4.63-6.08)
--- NOTE | 2025-02-03 05:58 | NUR ---
PATIENT IN BED, EYES OPEN, CHEST RISE EVEN AND UNLABORED. VITAL SIGNS AND ASSESMENT COMPLETED. PATIENT DENIES CONCERNS AT THIS TIME.
[2025-02-03 06:03] LABS: ALT (SGPT) 11.0 U/L (14-59); AST (SGOT) 11.0 U/L (15-37); GLOMERULAR FILTRATION RATE,EST 102.0 mL/min (>60); PROTEIN, TOTAL 6.1 g/dL (6.4-8.2); UREA NITROGEN 17.0 mg/dL (7-18)
--- NOTE | 2025-02-03 07:07 | NUR ---
RECIEVED REPORT FROM TINO CH, AND TINO METZ. PT IS RESTING IN BED. RR EVEN AND UNLABORED. CALL LIGHT AND PERSONAL BELONGINGS ARE WITHIN REACH.
--- NOTE | 2025-02-03 07:31 | NUR ---
PATIENT IN BED AT THIS TIME. GARMENT MANUFACTURING SUPERVISOR CHARTED HOURLY ROUNDS AND BLOOD SUGAR. CALL LIGHT WITHIN REACH, NO FURTHER NEEDS.
--- NOTE | 2025-02-03 09:45 | NUR ---
PT RESTING IN BED, PLAYING ON PHONE. RR EVEN AND UNLABORED. CALL LIGHT AND PERSONAL BELONGINGS WITHIN REACH.
--- NOTE | 2025-02-03 10:02 | NUR ---
PT LAYING IN BED PLAYING ON PHONE. RR EVEN AND UNLABORED. CALL LIGHT AND PERSONAL BELONGINGS WITHIN REACH.
--- NOTE | 2025-02-03 10:45 | NUR ---
PATIENT IS LYING IN BED WITH HOB ELEVATED. PATIENT WITH EYES OPEN AND RESPIRATIONS ARE EVEN AND UNLABORED. JOSUE HARRELL IS IN THE ROOM AND REPORTED FINISHING A BED BATH AND LINEN CHANGE. PATIENT TOLERATED WELL. FULL ASSESSMENT COMPLETE AND DOCUMENTED IN THE CHART. NEW SPLIT GAUZE PLACED AT SUPRAPUBIC CATHER SITE. PATIENT RATED PAIN 4/10 GENERALIZED BUT IS NOT REQUESTING ANYTHING FOR PAIN. PATIENT IS WHEELCHAIR BOUND AT BASELINE. KIESHA LIFT USED FOR TRANSFERS. PATIENT IS ON ROOM AIR AND LUNG SOUNDS ARE CLEAR THROUGHOUT. CARDIAC WITH NORMAL S1/S2 ON AUSCULTATION. SKIN WITH SCATTERED SCABS AND REDNESS NOTED TO THE GROING/ERASMO AREA. PATIENT WOUND UNABLE TO BE VISUALIZED AT THIS TIME. PATIENT STATED NO FURTHER NEEDS AT THIS TIME. CALL LIGHT AND PERSONAL BELONGINGS ARE WITHIN REACH.
--- NOTE | 2025-02-03 10:49 | NUR ---
PATIENT IN BED AT THIS TIME. ROTARY OPERATOR ASSISTED PATIENT WITH BED BATH, ROTARY OPERATOR ALSO CHANGED PATIENTS LINENS, PROVIDED PATIENT WITH CATHETER CARE, PROVIDED FRESH GOWN AND SHOWER CAP. CALL LIGHT WITHIN REACH, NO FURTHER NEEDS AT THIS TIME.
[2025-02-03 10:50] LABS: BLOOD/HGB, URINE LARGE (Negative); KETONE, URINE NEGATIVE (Negative); LEUK ESTERASE, URINE SMALL (negative); NITRITE, URINE POSITIVE (negative)
[2025-02-03 10:55] LABS: EPITHELIAL CELLS, URINE SQUAMOUS 1+ /lpf (0-1+)
[2025-02-03 10:57] LABS: BACTERIA, URINE 4+ /hpf (negative); CASTS, URINE NONE SEEN \\lpf; CRYSTALS, URINE NONE SEEN (0-1+); REFLEX CULTURE, URINE Yes (No)
--- NOTE | 2025-02-03 11:08 | NUR ---
TINO FORMAN IS IN THE ROOM AND GOING OVER CONSENT WITH THE PATIENT AT THIS TIME. CALL LIGHT AND PERSONAL BELONGINGS ARE WITHIN REACH.
--- NOTE | 2025-02-03 11:39 | NUR ---
PATIENT IN BED AT THIS TIME. WARDROBE MISTRESS CHARTED HOURLY ROUNDS AND BLOOD SUGAR. CALL LIGHT WITHIN REACH, NO FURTHER NEEDS AT THIS TIME.
--- NOTE | 2025-02-03 12:01 | NUR ---
1200 INSULIN ADMINISTERED PER THE EMAR. PATIENT IS LYING IN BED WITH HOB ELEVATED. PATIENT IS EATING LUNCH. CAME IN THE ROOM AND STATED HE WOULD COME BACK AFTER LUNCH TO DO THE BEDSIDE DEBRIDEMENT. PATIENT STATED NO FURTHER NEEDS AT THIS TIME. CALL LIGHT AND PERSONAL BELONGINGS ARE WITHIN REACH.
--- NOTE | 2025-02-03 13:22 | NUR ---
PATIENT IN BED AT THIS TIME. HARNESS REPAIRER CHARTED VITALS AND I&O'S. CALL LIGHT WITHIN REACH, NO FURTHER NEEDS AT THIS TIME.
--- NOTE | 2025-02-03 13:45 | NUR ---
PT IS SITTING UP IN BED, ON CELL PHONE. RR EVEN AND UNLABORED. CALL LIGHT AND PERSONAL BELONGINGS ARE WITHIN REACH.
--- NOTE | 2025-02-03 14:38 | NUR ---
PATIENT IS LYING IN BED WITH EYES CLOSED AND RESPIRATIONS ARE EVEN AND UNLABORED. CALL LIGHT AND PERSONAL BELONGINGS ARE WITHIN REACH.
--- NOTE | 2025-02-03 15:34 | NUR ---
PT LAYING IN BED WITH EYES OPEN. PT IS ALERT AND ORIENTED TIMES FOUR. PT DENIES PAIN AT THIS TIME. DRSG ON LOWER R BUTTOCKS IS CLEAN, DRY AND INTACT. IV ASSESSED AND FLUSHED WITH 10 ML NORMAL SALINE. FRESH SHEET PROVIDED FOR PT. FRESH COFFEE BROUGHT BY TINO PHILLIPS. PT DENIES ANY OTHER NEEDS AT THIS TIME. CALL LIGHT AND PERSONAL BELONGINGS ARE WITHIN REACH.
--- NOTE | 2025-02-03 16:25 | NUR ---
PATIENT IS LYING IN BED WITH EYES CLOSED AND RESPIRATIONS ARE EVEN AND UNLABORED. PATIENT WITH AUDIO PLAYING ON HIS PHONE. CALL LIGHT AND PERSONAL BELONGINGS ARE WITHIN REACH.
--- NOTE | 2025-02-03 18:19 | NUR ---
PATIENT REPOSITIONED WITH TINO FORMAN AT THIS TIME. WARM BLANKET PROVIDED AND LIGHTS SHUT OFF PER PATIENT REQUEST. PATIENT STATED NO FURTHER NEEDS AT THIS TIME. CALL LIGHT AND PERSONAL BELONGINGS ARE WITHIN REACH.
--- NOTE | 2025-02-03 19:01 | NUR ---
Pt report received from TINO Rosario and TINO Jordan. Pt is resting supine in bed, watching television. Assessment done at this time. Pt requests fresh iced water. This was provided. Side rails up x4, call light in reach, bedside table and personal belongings in reach.
--- NOTE | 2025-02-03 20:41 | NUR ---
PATIENT WAS LAYING IN BED WHEN I ENTERED ROOM. I INFORMED THE PATIENT I WAS GOING TO GET HIS BLOOD GLUCOSE. BLOOD GLUCOSE WAS 199. [employer] WILL NOT ALLOW ME TO DO AN ELECTRONIC SIGNATURE SO I WILL NOTIFY TINO ONOFRE SO SHE CAN CHART THE BLOOD GLUCOSE. CALL LIGHT WITHIN REACH AND NO FURTHER NEEDS AT THIS TIME.
--- NOTE | 2025-02-03 21:39 | NUR ---
PATIENT WAS LYING IN BED WHEN I ENTERED ROOM. I TOOK VITAL SIGNS AND I&O'S. I CHECKED WILLIS TUBING FOR KINKS AND FOUND NONE. CALL LIGHT WITHIN REACH.
--- NOTE | 2025-02-03 22:49 | NUR ---
PT C/O BACK PAIN 10/07. MEDICATED WITH 650MG PO TYLENOL PER REQUEST. PRIMARY RN INFORMED.
[2025-02-04] VITALS (11 sets, daily range): BP systolic 146–181; BP diastolic 61–77
[2025-02-04 05:55] LABS: BASOPHILS 0.6 % (0.2-1.2); EOSINOPHILS 3.7 % (0.8-7.0); LYMPHOCYTES 24.5 % (21.8-53.1); MCH 28.8 PG (25.7-32.2); MCHC 33.9 g/dL (32.3-36.5); MCV 84.7 fL (79.0-92.2); MONOCYTES 8.4 % (5.3-12.2); NEUTROPHILS 62.2 % (34.0-67.9); RBC 5.18 M/uL (4.63-6.08)
[2025-02-04 06:10] LABS: ALT (SGPT) 12.0 U/L (14-59); AST (SGOT) 8.0 U/L (15-37); GLOMERULAR FILTRATION RATE,EST 102.0 mL/min (>60); PROTEIN, TOTAL 6.4 g/dL (6.4-8.2); UREA NITROGEN 22.0 mg/dL (7-18)
--- NOTE | 2025-02-04 07:00 | NUR ---
REPORT RECEIVED FROM STRAWHAT SIZER RN [place]. PATIENT IS LYING IN BED WITH EYES OPEN AND RESPIRATIONS ARE EVEN AND UNLABORED. PATIENT IS ON HIS PHONE. FRESH COFFEE PROVIDED PER PATIENT REQUEST. PATIENT STATED NO FURTHER NEEDS AT THIS TIME. CALL LIGHT AND PERSONAL BELONGINGS ARE WITHIN REACH.
--- NOTE | 2025-02-04 09:07 | NUR ---
PATIENT IS LYING IN BED WITH HOB ELEVATED. PATIENT WITH EYES OPEN AND RESPIRATIONS ARE EVEN AND UNLABORED. PATIENT IS LISTENING TO HIS PHONE. CALL LIGHT AND PERSONAL BELONGINGS ARE WITHIN REACH.
--- NOTE | 2025-02-04 09:08 | NUR ---
HOURLY ROUNDING. PATIENT IS LAYING IN THE BED, VISITING WITH A FRIEND ON THE PHONE. BOARD HAS BEEN UPDATED AND CALL LIGHT PLACED WITHIN REACH-ROOM TIDY. AM CARE COMPLETE NURSE NOTIFIED OF HIGH BP
--- NOTE | 2025-02-04 09:22 | NUR ---
NOTIFIED OF PATIENT MOST RECENT BLOOD PRESSURE. MD STATED TO RECHECK IN A LITTLE BIT. NO NEW ORDERS AT THIS TIME.
--- NOTE | 2025-02-04 09:40 | NUR ---
PATIENT IS LYING IN BED WITH HOB ELEVATED. PATIENT WITH EYES OPEN AND RESPIRATIONS ARE EVEN AND UNLABORED. WAFFLE MATTRESS OVERLAY IN PLACE. FULL ASSESSMENT COMPLETE AND DOCUMENTED IN THE CHART. PATIENT CHANGED OSTOMY BAG AT THIS TIME. SKIN ASSESSMENT COMPLETE WITH TINO BRISCOE. DRESSING TO BELOW THE RIGHT BUTTOCK IS CLEAN, DRY, AND INTACT. IV INFILTRATED AND IS RED AROUND THE SITE. IV SITE DISCONTINUED WITH THE CATHETER TIP INTACT. IV PLACED ON THE SITE PER [place]. PATIENT WITH NO COMPLAINTS OF PAIN OR NAUSEA. PATIENT IS ON ROOM AIR AND LUNG SOUNDS ARE CLEAR THROUGHOUT. CARDIAC WITH NORMAL S1 AND S2 ON AUSCULTATION. PATIENT IS ALERT AND ORIENTED TIMES FOUR. SKIN WITH SCATTERED SCABS AND REDNESS TO THE GROIN/ERASMO AREA. PATIENT STATED NO FURTHER NEEDS AT THIS TIME. CALL LIGHT AND PERSONAL BELONGINGS ARE WITHIN REACH.
--- NOTE | 2025-02-04 10:17 | NUR ---
PATIENT IS LYING IN BED WITH HOB ELEVATED. PATIENT WITH EYES CLOSED AND RESPIRATIONS ARE EVEN AND UNLABORED. ICE PACK REMAINS IN PLACE ON THE LEFT FOREARM POST IV SITE REMOVAL. IV TUBING REPLACED AT THIS TIME. PATIENT STATED NO FURTHER NEEDS AT THIS TIME. CALL LIGHT AND PERSONAL BELONGINGS ARE WITHIN REACH.
--- NOTE | 2025-02-04 10:20 | NUR ---
NOTIFIED ON NO WOUND CARE ORDERS. GAVE TELEPHONE ORDER, THIS RN TO PUT IN ORDER.
--- NOTE | 2025-02-04 10:51 | NUR ---
RN ASKED ME TO GET BP AND PULSE ON THIS PT. CLEANED UP ROOM TOO AND TOOK OUT TRASH.
--- NOTE | 2025-02-04 11:01 | NUR ---
PATIENT IS LYING IN BED WITH HOB ELEVATED AND IS ON HIS PHONE. PATIENT WITH EYES OPEN AND RESPIRATIONS ARE EVEN AND UNLABORED. PATIENT STATED NO NEEDS AT THIS TIME. CALL LIGHT AND PERSONAL BELONGINGS ARE WITHIN REACH.
--- NOTE | 2025-02-04 12:51 | NUR ---
HOURLY ROUNDING. PATIENT REPORTS HAVING A GOOD LUNCH, HE ATE VERYTHING BESIDE THE VEGGIES ON HIS TRAY, NO REQUEST FROM PATIENT ,CALL LIGHT HAS BEEN PLACED WITHIN REACH
--- NOTE | 2025-02-04 13:53 | NUR ---
PATIENT IS LYING IN BED WITH HOB ELEVATED. PATIENT WITH EYES OPEN AND RESPIRATIONS ARE EVEN AND UNLABORED. PATIENT IS ON HIS PHONE. CALL LIGHT AND PERSONAL BELONGINGS ARE WITHIN REACH.
--- NOTE | 2025-02-04 14:11 | NUR ---
PATIENT IS LYING IN BED WITH EYES OPEN AND RESPIRATIONS ARE EVEN AND UNLABORED. PATIENT IS ON HIS PHONE. HOB ELEVATED. CALL LIGHT AND PERSONAL BELONGINGS ARE WITHIN REACH.
--- NOTE | 2025-02-04 15:00 | NUR ---
PATIENT IS LYING IN BED WITH EYES OPEN AND RESPIRATIONS ARE EVEN AND UNLABORED. PATIENT REMAINS WITH NO IV SITE. DRESSING TO BELOW THE RIGHT BUTTOCKS CHANGED AT THIS TIME. SEROSANGUINEOUS/PURULENT DRAINAGE AND BAD ODOR NOTED TO THE OLD DRESSING. PATIENT IS ALERT AND ORIENED TIMES FOUR. PATIENT REPORTED PAIN WAS 4/10 GENERALIZED THROUGHOUT THE BODY. PRN TYLENOL ADMINISTERED PER THE EMAR. PATIENT STATED NO FURTHER NEEDS AT THIS TIME. CALL LIGHT AND PERSONAL BELONGINGS ARE WITHIN REACH.
--- NOTE | 2025-02-04 16:02 | NUR ---
JOSUE KHAN AND JOSUE LEDESMA ARE IN THE ROOM AT THIS TIME.
--- NOTE | 2025-02-04 16:14 | NUR ---
HOURLY ROUNDING. PATIENT COMPLETED AND BED BATH AND LINENS HAVE BEEN CHANGED. ALSO GOWN. CALL LIGHT HAS BEEN PLACED WITHIN REACH. NO REQUEST FROM PATIENT AT THIS TIME
--- NOTE | 2025-02-04 18:03 | NUR ---
NOTIFIED OF MOST RECENT BP OF SYSTOLIC GREATER THAN 160'S. STATED HE WOULD LOOK AT ORDERS. NO NEW ORDERS AT THIS TIME.
--- NOTE | 2025-02-04 18:04 | NUR ---
PATIENT IS LYING IN BED WITH HOB ELEVATED. PATIENT WITH EYES OPEN AND RESPIRATIONS ARE EVEN AND UNLABORED. PATIENT IS ON HIS PHONE AND REMAINS ON ROOM AIR. CALL LIGHT AND PERSONAL BELONGINGS ARE WITHIN REACH.
--- NOTE | 2025-02-04 19:27 | NUR ---
RECEIVED REPORT ON PT. PT IS RESTING EYES CLOSED. CALL LIGHT WITH IN REACH.
--- NOTE | 2025-02-04 22:19 | NUR ---
ASSESSMENT COMPLETE. PT RESTING IN BED ON HIS PHONE. NO FURTHER NEEDS AT THIS TIME.
--- NOTE | 2025-02-04 23:31 | NUR ---
PT LAYING IN BED WATCHING HIS PHONE. CALL LIGHT WITH IN REACH.
--- NOTE | 2025-02-05 00:42 | NUR ---
PT RESTING IN BED WATCHING HIS PHONE. NO NEEDS AT THIS TIME. CALL LIGHT WITHIN REACH.
--- NOTE | 2025-02-05 02:39 | NUR ---
PT RESTING IN BED EYES CLOSED. CALL LIGHT WITH IN REACH.
--- NOTE | 2025-02-05 03:53 | NUR ---
PT RESTING ON HIS SIDE WITH EYES CLOSED. CALL LIGHT WITH IN REACH.
[2025-02-05 05:17] VITALS: BP 163/75
[2025-02-05 05:23] VITALS: BP 163/75
--- NOTE | 2025-02-05 05:30 | NUR ---
ASSESSMENT COMPLETE. PT RESTING IN HIS BED. CALL LIGHT WITH IN REACH. PT HAS NO NEEDS AT THIS TIME.
[2025-02-05 05:35] LABS: BASOPHILS 0.7 % (0.2-1.2); EOSINOPHILS 3.6 % (0.8-7.0); LYMPHOCYTES 24.2 % (21.8-53.1); MCH 28.7 PG (25.7-32.2); MCHC 33.8 g/dL (32.3-36.5); MCV 84.8 fL (79.0-92.2); MONOCYTES 8.6 % (5.3-12.2); NEUTROPHILS 62.1 % (34.0-67.9); RBC 5.51 M/uL (4.63-6.08)
[2025-02-05 06:07] LABS: ALT (SGPT) 22.0 U/L (14-59); AST (SGOT) 15.0 U/L (15-37); GLOMERULAR FILTRATION RATE,EST 103.0 mL/min (>60); PROTEIN, TOTAL 6.9 g/dL (6.4-8.2); UREA NITROGEN 24.0 mg/dL (7-18)
--- NOTE | 2025-02-05 06:54 | NUR ---
Pt report received from RNs Janie and Lesly. Pt is resting supine in bed, eyes closed, breathing regular, even, and non-labored. White board updated
--- NOTE | 2025-02-05 09:03 | NUR ---
MARGARITO VAN SCHEDULED TODAY AT 1000 AM. FACILITY AWARE. WAITING ORDERS.
[2025-02-05] MEDS ORDERED: LEVOFLOXACIN750 MG PO (09:10)
[2025-02-05 10:02] VITALS: BP 168/77
--- NOTE | 2025-02-05 11:06 | NUR ---
[facility] FAXED.
== END 2025-02-05 10:15 | DRG 689 ==
LOC: ED 14:54 → MS 14:55 → ED 15:55 → MS 02-02 10:06
PROVIDERS: Emergency Medicine; ADMIT Internal Medicine; ATTEND Family Medicine
PROC: 3E03329 Introduction of Other Anti-infective into Peripheral Vein, Percutaneous Approach (ICD-10-PCS; principal; 2025-01-31)
PROC: 0T2BX0Z Change Drainage Device in Bladder, External Approach (ICD-10-PCS; 2025-02-02)
DX: N39.0 Urinary tract infection, site not specified (principal); L89.154 Pressure ulcer of sacral region, stage 4; G82.20 Paraplegia, unspecified; L89.310 Pressure ulcer of right buttock, unstageable; E11.9 Type 2 diabetes mellitus without complications; I10 Essential (primary) hypertension; I25.10 Atherosclerotic heart disease of native coronary artery without angina pectoris; E66.9 Obesity, unspecified; R33.9 Retention of urine, unspecified; X58.XXXS Exposure to other specified factors, sequela; Z68.35 Body mass index [BMI] 35.0-35.9, adult; Z88.1 Allergy status to other antibiotic agents; Z88.5 Allergy status to narcotic agent; Z88.8 Allergy status to other drugs, medicaments and biological substances; Z79.82 Long term (current) use of aspirin; Z79.02 Long term (current) use of antithrombotics/antiplatelets; Z79.84 Long term (current) use of oral hypoglycemic drugs; Z79.4 Long term (current) use of insulin; Z79.1 Long term (current) use of non-steroidal anti-inflammatories (NSAID); S24.103S Unspecified injury at T7-T10 level of thoracic spinal cord, sequela; Z89.612 Acquired absence of left leg above knee; Z87.440 Personal history of urinary (tract) infections; Z93.3 Colostomy status
CPT/HCPCS: 36415; 80048; 80053; 81001; 83036; 83735; 85025; 87077; 87088; 87186; 96361; 96365; 96366; 97161; 97165; 99284-25; A9270; G0378; J1650; J1815; J1956; J7030

== ENCOUNTER 2025-03-01 17:09 | Emergency (ER) | payer MEDICARE, OTHER ==
[~2025-03-01] VITALS: Ht 182.9 cm; Wt 121.3 kg
--- OUTSIDE RECORDS SUMMARY | ~2025-03-01 | XMS | Continuity of Care Document ---
Demographics + + + | Address | [address] | | | [place] [address] | + + + | Preferred Language | Unknown | + + + | Marital Status | Never | + + + | Religion Affiliation | Unknown | + + + | Race | White | + + + | Ethnic Group | Not or | + + + Author + + + | Author | [facility] | + + + | Organization | [facility] | + + + | Address | [address] | | | [place] [address] | + + + | Phone | | + + + Care Team Providers + + + + | Care Coremaker Name | Role | Phone | + + + + Unavailable | Unavailable | + + + + Unavailable | Unavailable | + + + + Allergies and Intolerances + + + + + + | date | description | facility | reaction | severity | + + + + + + | 2025-01-31 | Thiopental | [facility] | (no reaction) | Severe | | 00:00 | | [facility] | | | + + + + + + | 2025-01-31 | Clindamycin | [facility] | Rash | Mild | | 00:00 | | [facility] | | | + + + + + + | 2025-01-31 | Hydromorphone | [facility] | Hallucinations | Moderate | | 00:00 | | [facility] | | | + + + + + + | 2025-01-31 | Clindamycin | [facility] | Rash | Mild | | 00:00 | | [facility] | | | + + + + + + | 2025-01-31 | Clindamycin | [facility] - | Rash | Mild | | 00:00 | | [facility] | | | + + + + + + | 2025-01-31 | Thiopental | [facility] - | (no reaction) | Severe | | 00:00 | | [facility] | | | + + + + + + | 2025-01-31 | Hydromorphone | [facility] - | Hallucinations | Moderate | | 00:00 | | [facility] | | | + + + + + + | 2025-01-31 | Thiopental | [facility] - | (no reaction) | Severe | | 00:00 | | [facility] | | | + + + + + + | 2025-01-31 | Hydromorphone | [facility] - | Hallucinations | Moderate | | 00:00 | | [facility] | | | + + + + + + Encounters No information. Functional Status No information. Immunizations + + + + | date | description | facility | + + + + | (no date) | Influenza, Injectable, | [facility] | | | Quadrivalent | [facility] | + + + + Medications + + + + | date | description | facility | + + + + | (no date) | OXYCODONE | [facility] | | | HCL/ACETAMINOPHEN | [facility] | + + + + | (no date) | OXYCODONE | [facility] | | | HCL/ACETAMINOPHEN | [facility] | + + + + | (no date) | EMPAGLIFLOZIN | [facility] | | | | [facility] | + + + + | (no date) | Insulin Aspart | [facility] | | | | [facility] | + + + + | (no date) | CEFTRIAXONE SOD | [facility] | | | | [facility] | + + + + | (no date) | Insulin | [facility] | | | [facility] | [facility] | + + + + | (no date) | CHLORTHALIDONE | [facility] | | | | [facility] | + + + + | (no date) | ONDANSETRON HCL | [facility] | | | | [facility] | + + + + | (no date) | POTASSIUM CHLORIDE | [facility] | | | | [facility] | + + + + | (no date) | ACETAMINOPHEN | [facility] | | | | [facility] | + + + + | (no date) | CARVEDILOL | [facility] | | | | [facility] | + + + + | (no date) | CEFDINIR | [facility] | | | | [facility] | + + + + | (no date) | NITROFURANTOIN | [facility] | | | MACROCRYSTAL | [facility] | + + + + | (no date) | Ibuprofen | [facility] | | | | [facility] | + + + + | (no date) | NITROGLYCERIN | [facility] | | | | [facility] | + + + + | (no date) | CELECOXIB | [facility] | | | | [facility] | + + + + | (no date) | Semaglutide | [facility] | | | | [facility] | + + + + | (no date) | MELATONIN | [facility] | | | | [facility] | + + + + | (no date) | ATORVASTATIN CALCIUM | [facility] | | | | [facility] | + + + + | (no date) | NYSTATIN | [facility] | | | | [facility] | + + + + | (no date) | PIOGLITAZONE HCL | [facility] | | | | [facility] | + + + + | (no date) | FAMOTIDINE | [facility] | | | | [facility] | + + + + | (no date) | INSULIN GLARGINE | [facility] | | | | [facility] | + + + + | (no date) | CLOPIDOGREL BISULFATE | [facility] | | | | [facility] | + + + + | (no date) | HYDROCHLOROTHIAZIDE | [facility] | | | | [facility] | + + + + | (no date) | IBUPROFEN | [facility] | | | | [facility] | + + + + | 2025-02-05 00:00 | LEVOFLOXACIN | [facility] | | | | [facility] | + + + + | (no date) | ONDANSETRON HCL | [facility] | | | | [facility] | + + + + | (no date) | LISINOPRIL | [facility] | | | [facility] | + + + + | (no date) | ASPIRIN | [facility] | | | | [facility] | + + + + | (no date) | INSULIN ASPART | [facility] | | | | [facility] | + + + + | (no date) | Insulin Aspart | [facility] | | | | [facility] | + + + + | (no date) | NITROFURANTOIN MONOHYD | [facility] | | | MACROCR | [facility] | + + + + | (no date) | SITAGLIPTIN PHOSPHATE | [facility] | | | | [facility] | + + + + | (no date) | Cholecalciferol (Vitamin | [facility] | | | D3) | [facility] | + + + + | (no date) | METFORMIN HCL | [facility] | | | | [facility] | + + + + | (no date) | METOPROLOL SUCCINATE | [facility] | | | | [facility] | + + + + | (no date) | Loperamide HCl | [facility] | | | | [facility] | + + + + | (no date) | LOPERAMIDE HCL | [facility] | | | | [facility] | + + + + | (no date) | LOSARTAN POTASSIUM | [facility] | | | | [facility] | + + + + | (no date) | LOSARTAN POTASSIUM | [facility] | | | | [facility] | + + + + Problems No information. Procedures No information. Results/Labs +--------+--------+ +---------+--------+---------+ | test | date | facility | value | unit | notes | +--------+--------+ +---------+--------+---------+ + + | Result panel 1 | + + + + + +-------+ + + | HbA1c MFr | 2025-01-31 | | 6.0 | (missing) | (missing) | | Bld | 16:00:07 | [facility] | | | | + + + +-------+ + + + + | Result panel 2 | + + + + + + + + + | Color Ur | 2025-02-03 | | YELLOW | (missing) | (missing) | | Auto | 10:45:07 | [facility] | | | | + + + + + + + + + | Result panel 3 | + + + + + + + + + | Character | 2025-02-03 | | CLOUDY | (missing) | (missing) | | Ur | 10:45:07 | [facility] | [facility] | | | | + + + + + + + + + | Result panel 4 | + + + + + + + + + | Glucose Ur | 2025-02-03 | | >=1000 | (missing) | (missing) | | Ql Strip | 10:45:07 | [facility] | | | | + + + + + + + + + | Result panel 5 | + + + + + + + + + | Bilangelub Ur | 2025-02-03 | | NEGATIVE | (missing) | (missing) | | Ql Strip | 10:45:07 | [facility] | | | | + + + + + + + + + | Result panel 6 | + + + + + + + + + | Ketones Ur | 2025-02-03 | | NEGATIVE | (missing) | (missing) | | Ql Strip | 10:45:07 | [facility] | | | | + + + + + + + + + | Result panel 7 | + + + + + +---------+ + + | Sp Gr Ur | 2025-02-03 | | 1.020 | (missing) | (missing) | | Strip | 10:45:07 [facility] | | | | + + + +---------+ + + + + | Result panel 8 | + + + + + +---------+ + + | Hgb Ur Ql | 2025-02-03 | | LARGE | (missing) | (missing) | | Strip | 10:45:07 | [facility] | | | | + + + +---------+ + + + + | Result panel 9 | + + + + + +-------+ + + | pH Ur Strip | 2025-02-03 | | 6.0 | (missing) | (missing) | | | 10:45:07 | [facility] | | | | + + + +-------+ + + + + | Result panel 10 | + + + + + + + + + | Prot Ur | 2025-02-03 | | NEGATIVE | (missing) | (missing) | | Strip-mCnc | 10:45:07 | [facility] | | [facility] | | | | + + + + + + + + + | Result panel 11 | + + + + + + + + + | | 2025-02-03 | | NORMAL | (missing) | (missing) | | Urobilinogen | 10:45:07 | [facility] | | | | | Ur | [facility] | Strip-mCnc | | [facility] | | | | + + + + + + + + + | Result panel 12 | + + + + + + + + + | Nitrite Ur | 2025-02-03 | | POSITIVE | (missing) | (missing) | | Ql Strip | 10:45:07 | [facility] | | | [facility] | | | | + + + + + + + + + | Result panel 13 | + + + + + +---------+ + + | Leukocyte | 2025-02-03 | | SMALL | (missing) | (missing) | | esterase Ur | 10:45:07 | [facility] | | | | | Ql Strip | [facility] | | | | + + + +---------+ + + + + | Result panel 14 | + + + + + +--------+ + + | RBC #/area | 2025-02-03 | | 7-11 | (missing) | (missing) | | [facility] | 10:45:07 | [facility] | | | | + + + +--------+ + + + + | Result panel 15 | + + + + + +-------+ + + | WBC #/area | 2025-02-03 | | >50 | (missing) | (missing) | | UrnS HPF | 10:45:07 | [facility] | | | | | | | - | | | | | | | [facility] | | | | + + + +-------+ + + + + | Result panel 16 | + + + + + + + + + | Epi Cells | 2025-02-03 | | SQUAMOUS 1+ | (missing) | (missing) | | #/area UrnS | 10:45:07 | [facility] | | | | | HPF | [facility] | | | | + + + + + + + + + | Result panel 17 | + + + + + + + + + | Crystals | 2025-02-03 | | NONE SEEN | (missing) | (missing) | | UrnS Micro | 10:45:07 | [facility] | | | | | | [facility] | | | | + + + + + + + + + | Result panel 18 | + + + + + +------+ + + | Bacteria | 2025-02-03 | | 4+ | (missing) | (missing) | | #/area UrnS | 10:45:07 | [facility] | | | | | HPF | [facility] | | | | + + + +------+ + + + + | Result panel 19 | + + + + + + + + + | Casts | 2025-02-03 | | NONE SEEN | (missing) | (missing) | | #/area UrnS | 10:45:07 | [facility] | | | | | LPF | [facility] | | | | + + + + + + + + + | Result panel 20 | + + + + + +-------+ + + | Bacteria Ur | 2025-02-03 | | Yes | (missing) | (missing) | | Cult | 10:45:07 | [facility] | | | | | [facility] | | | | + + + +-------+ + + + + | Result panel 21 | + + + + + +--------+ + + | Urn Spec | 2025-02-03 | | CATH | (missing) | (missing) | | Collect Meth | 10:45:07 | [facility] | | | | | Ur | [facility] | | | | + + + +--------+ + + + + | Result panel 22 | + + + + + +--------+ + + | Neutrophils | 2025-02-05 | | 62.1 | (missing) | (missing) | | NFr Bld | 05:18:07 | [facility] | | | | | Auto | | [facility] | | | | + + + +--------+ + + + + | Result panel 23 | + + + + + +--------+ + + | Lymphocytes | 2025-02-05 | | 24.2 | (missing) | (missing) | | NFr Bld | 05:18:07 | [facility] | | | | | Auto | | [facility] | | | | + + + +--------+ + + + + | Result panel 24 | + + + + + +-------+ + + | Monocytes | 2025-02-05 | | 8.6 | (missing) | (missing) | | NFr Bld Auto | 05:18:07 | [facility] | | | | | | [facility] | | | | + + + +-------+ + + + + | Result panel 25 | + + + + + +-------+ + + | Eosinophil | 2025-02-05 | | 3.6 | (missing) | (missing) | | NFr Bld Auto | 05:18:07 | [facility] | | | | | [facility] | | | | + + + +-------+ + + + + | Result panel 26 | + + + + + +-------+ + + | Basophils | 2025-02-05 | | 0.7 | (missing) | (missing) | | NFr Pablod Auto | 05:18:07 | [facility] | | | | | [facility] | | | | + + + +-------+ + + + + | Result panel 27 | + + + + + +-------+---------+ + | Glucose | 2025-02-05 | | 215 | mg/dL | (missing) | | SerPl-mCnc | 05:18:07 | [facility] | | | | | | [facility] | | | | + + + +-------+---------+ + + + | Result panel 28 | + + + + + +------+---------+ + | BUN | 2025-02-05 | | 24 | mg/dL | (missing) | | Vickie-Isabella | 05:18:07 | [facility] | | | | | [facility] | | | | + + + +------+---------+ + + + | Result panel 29 | + + + + + +--------+---------+ + | Creat | 2025-02-05 | | 0.62 | mg/dL | (missing) | | SerPtaylor-Isabella | 05:18:07 | [facility] | | | | | [facility] | | | | + + + +--------+---------+ + + + | Result panel 30 | + + + + + +-------+ + + | eGFRcr | 2025-02-05 | | 103 | (missing) | (missing) | | SerPlBld | 05:18:07 | [facility] | | | | | CKD-EPI 2020 | | - | | | | | | | [facility] | | | | + + + +-------+ + + + + | Result panel 31 | + + + + + +--------+ + + | WBC # Bld | 2025-02-05 | | 7.57 | (missing) | (missing) | | Auto | 05:18:07 | [facility] | | | [facility] | | | | + + + +--------+ + + + + | Result panel 32 | + + + + + +---------+ + + | BUN/Creat | 2025-02-05 | | 38.70 | (missing) | (missing) | | SerPl | 05:18:07 | [facility] | | | | | [facility] | | | | + + + +---------+ + + + + | Result panel 33 | + + + + + +-------+ + + | Sodium | 2025-02-05 | | 136 | (missing) | (missing) | | SerPl-sCnc | 05:18:07 | [facility] | | [facility] | | [facility] | | | | + + + +-------+ + + + + | Result panel 34 | + + + + + +-------+ + + | Potassium | 2025-02-05 | | 3.6 | (missing) | (missing) | | SerPl-sCnc | 05:18:07 | [facility] | | [facility] | | | | + + + +-------+ + + + + | Result panel 35 | + + + + + +-------+ + + | Chloride | 2025-02-05 | | 102 | (missing) | (missing) | | SerPl-sCnc | 05:18:07 | [facility] | | [facility] | | | | + + + +-------+ + + + + | Result panel 36 | + + + + + +------+ + + | CO2 | 2025-02-05 | | 27 | (missing) | (missing) | | SerPl-sCnc | 05:18:07 | [facility] | | | [facility] | | | | + + + +------+ + + + + | Result panel 37 | + + + + + +--------+ + + | Anion Gap | 2025-02-05 | | 10.6 | (missing) | (missing) | | SerPl | 05:18:07 | [facility] | | | | | Calculated.4 | [facility] Ions-sCnc | [facility] | | | | + + + +--------+ + + + + | Result panel 38 | + + + + + +--------+---------+ + | Calcium | 2025-02-05 | | 10.4 | mg/dL | (missing) | | SerPl-mCnc | 05:18:07 | [facility] | | | | | [facility] | | | | + + + +--------+---------+ + + + | Result panel 39 | + + + + + +-------+---------+ + | Magnesium | 2025-02-05 | | 1.9 | mg/dL | (missing) | | SerPl-mCnc | 05:18:07 | [facility] | | [facility] | | | | + + + +-------+---------+ + + + | Result panel 40 | + + + + + +-------+ + + | Prot | 2025-02-05 | | 6.9 | (missing) | (missing) | | SerPl-mCaudi | 05:18:07 | [facility] | | | | [facility] | | | | + + + +-------+ + + + + | Result panel 41 | + + + + + +-------+ + + | Albumin | 2025-02-05 | | 3.1 | (missing) | (missing) | | SerPl-mCaudi | 05:18:07 | [facility] | [facility] | | | | + + + +-------+ + + + + | Result panel 42 | + + + + + +--------+ + + | RBC # Bld | 2025-02-05 | | 5.51 | (missing) | (missing) | | Auto | 05:18:07 | [facility] | | | | + + + +--------+ + + + + | Result panel 43 | + + + + + +-------+ + + | Globulin | 2025-02-05 | | 3.8 | (missing) | (missing) | | Ser-mCnc | 05:18:07 | [facility] | [facility] | | | | + + + +-------+ + + + + | Result panel 44 | + + + + + +--------+ + + | | 2025-02-05 | | 0.82 | (missing) | (missing) | | Albumin/Glob | 05:18:07 | [facility] | | | | | SerPl | [facility] | | | | + + + +--------+ + + + + | Result panel 45 | + + + + + +-------+---------+ + | Bilirub | 2025-02-05 | | 0.6 | mg/dL | (missing) | | SerPl-mCnc | 05:18:07 | [facility] | | | | + + + +-------+---------+ + + + | Result panel 46 | + + + + + +------+ + + | AST | 2025-02-05 | | 15 | (missing) | (missing) | | Vickie-Rosalina | 05:18:07 | [facility] | | [facility] | | | | + + + +------+ + + + + | Result panel 47 | + + + + + +------+ + + | ALT | 2025-02-05 | | 22 | (missing) | (missing) | | SerPtaylor-Rosalina | 05:18:07 | [facility] | | | [facility] | | | | + + + +------+ + + + + | Result panel 48 | + + + + + +-------+ + + | ALP | 2025-02-05 | | 114 | (missing) | (missing) | | [facility] | 05:18:07 | [facility] | [facility] | | | | + + + +-------+ + + + + | Result panel 49 | + + + + + +--------+ + + | Hgb | 2025-02-05 | | 15.8 | (missing) | (missing) | | Bld-mCnc | 05:18:07 | [facility] | | | | + + + +--------+ + + + + | Result panel 50 | + + + + + +--------+ + + | Hct VFr.DF | 2025-02-05 | | 46.7 | (missing) | (missing) | | Bld Auto | 05:18:07 | [facility] | | | | + + + +--------+ + + + + | Result panel 51 | + + + + + +--------+ + + | RBC Auto | 2025-02-05 | | 84.8 | (missing) | (missing) | | | 05:18:07 | [facility] | | | | + + + +--------+ + + + + | Result panel 52 | + + + + + +--------+ + + | MCH RBC Qn | 2025-02-05 | | 28.7 | (missing) | (missing) | | Auto | 05:18:07 | [facility] | | | | + + + +--------+ + + + + | Result panel 53 | + + + + + +--------+ + + | MCHC RBC | 2025-02-05 | | 33.8 | (missing) | (missing) | | Auto-EntMCnc | 05:18:07 | [facility] | | | | + + + +--------+ + + + + | Result panel 54 | + + + + + +-------+ + + | Platelet # | 2025-02-05 | | 181 | (missing) | (missing) | | Bld Auto | 05:18:07 | [facility] | | | | + + + +-------+ + + + + | Result panel 55 | + + + + + +-------+ + + | Glucose | 2025-02-05 | | 219 | (missing) | (missing) | | [facility] | 07:47:07 | [facility] | | | | + + + +-------+ + + Social History +--------+ + + | date | description | facility | +--------+ + + Vital Signs + + + +---------+ | date | measurement | value | units | + + + +---------+ | 2025-02-01 00:00 | BMI | 35.9 | kg/m2 | + + + +---------+ | 2025-02-01 00:00 | height_metric | 182.88 | cm | + + + +---------+ | 2025-02-01 00:00 | height_standard | 72 | in | + + + +---------+ | 2025-02-01 00:00 | weight_metric | 120.202 | kg | + + + +---------+ | 2025-02-01 00:00 | weight_standard | 265.000 | lb | + + + +---------+ | 2025-02-05 00:00 | BP_diastolic | 77 | mmHg | + + + +---------+ | 2025-02-05 00:00 | BP_systolic | 168 | mmHg | + + + +---------+ | 2025-02-05 00:00 | heart_rate | 69 | /min | + + + +---------+ | 2025-02-05 00:00 | o2_saturation | 99 | % | + + + +---------+ | 2025-02-05 00:00 | respiration_rate | 18 | /min | + + + +---------+ | 2025-02-05 00:00 | | 97.5 | F | | | temperature_standar | | | | | d | | | + + + +---------+"
[~2025-03-01 17:09] MED LIST changes: +COZAAR50 MG PO; +IBU800 MG PO; +LOPERAMIDE2 M1 PO; +MELATONIN5 M2 PO; +NYSTOP60 GM TOP; +ONDANSETRON HCL8 MG PO
[2025-03-01 17:31] LABS: BASOPHILS 0.2 % (0.2-1.2); EOSINOPHILS 0.1 % (0.8-7.0); LYMPHOCYTES 4.0 % (21.8-53.1); MCH 28.9 PG (25.7-32.2); MCHC 33.3 g/dL (32.3-36.5); MCV 86.9 fL (79.0-92.2); MONOCYTES 8.2 % (5.3-12.2); NEUTROPHILS 86.7 % (34.0-67.9); RBC 5.26 M/uL (4.63-6.08)
[2025-03-01 17:41] LABS: INR 1.07 (0.80-1.30); PROTIME 13.5 Sec (11.2-14.2)
[2025-03-01 17:50] LABS: ALT (SGPT) 14.0 U/L (14-59); AST (SGOT) 9.0 U/L (15-37); GLOMERULAR FILTRATION RATE,EST 60.0 mL/min (>60); PROTEIN, TOTAL 6.6 g/dL (6.4-8.2); UREA NITROGEN 36.0 mg/dL (7-18)
[2025-03-01 20:12] VITALS: BP 159/83
--- NOTE | 2025-03-02 11:43 | EKG ---
[facility] [address] [place] [address] Signed Normal sinus rhythm Normal ECG When compared with ECG of 25-SEP-2023 11:04, Vent. rate has decreased BY 38 BPM Confirmed by DIPESH ALONZO MD ([id number]) on 03/02/2025 11:43:29 AM Electronically Signed By: DIPESH ALONZO 03/02/25 1143 PATIENT NAME: DONTRELLHERMINIO Electrocardiogram DATE OF : 55 PHYSICIAN: DIPESH ALONZO REPORT #: [id number] REPORT IS CONFIDENTIAL AND NOT TO BE RELEASED WITHOUT AUTHORIZATION
== END 2025-03-01 20:17 | disposition home or self-care (01) ==
LOC: ED 17:09
PROVIDERS: Emergency Medicine
DX: R07.89 Other chest pain (principal); I10 Essential (primary) hypertension; I25.10 Atherosclerotic heart disease of native coronary artery without angina pectoris; E11.42 Type 2 diabetes mellitus with diabetic polyneuropathy; Z93.3 Colostomy status; Z88.1 Allergy status to other antibiotic agents; Z88.5 Allergy status to narcotic agent; Z88.8 Allergy status to other drugs, medicaments and biological substances; Z79.4 Long term (current) use of insulin; Z79.02 Long term (current) use of antithrombotics/antiplatelets; Z79.1 Long term (current) use of non-steroidal anti-inflammatories (NSAID); Z79.84 Long term (current) use of oral hypoglycemic drugs; Z79.82 Long term (current) use of aspirin; Z79.899 Other long term (current) drug therapy
CPT/HCPCS: 36415; 71045; 74177; 80053; 83735; 84484; 85025; 85060; 85610; 93005; 93010; 99285-25; Q9967